=== PATIENT | female | born 1960 | race Caucasian/White ===

== ENCOUNTER 2020-08-03 15:23 | Outpatient (REF) | payer OTHER, SELFPAY ==
--- NOTE | ~2020-08-03 | MM_ITS ---
EXAMINATION: MM SCREENING DIGITAL BREAST TOMOSYNTHESIS, BILATERAL CLINICAL INFORMATION: Screening. Asymptomatic. The lifetime risk of breast cancer based on the Tyrer-Cuzick Model is 6%. COMPARISON: Mammography: 07/25/2019, 02/22/2018, 02/08/2017 TECHNIQUE: Digital breast tomosynthesis is performed in both the craniocaudal and mediolateral oblique views along with computer-aided detection (CAD). Synthesized 2D images are generated from the tomosynthesis. FINDINGS: The breasts are heterogeneously dense, which may obscure small masses (ACR BI-RADS breast composition Category c). There are no significant masses, abnormal calcifications, or other abnormalities. Parenchymal pattern is similar to prior exams. There is a dermal lesion again seen overlying left axillary tail on MLO view. MM/MM tomosynthesis screening BI IMPRESSION: No mammographic evidence of malignancy. ASSESSMENT: BI-RADS 1: Negative RECOMMENDATION: Routine annual mammography screening. This patient's information was entered into a reminder system with a target due date for their next mammogram.
== END 2020-08-03 15:24 | disposition home or self-care (01) ==
LOC: HO.MAMMO 15:23
PROVIDERS: PCP Internal Medicine; Visit Provider Obstetrics & Gynecology
DX: Z12.31 Encounter for screening mammogram for malignant neoplasm of breast (principal)
CPT/HCPCS: 77063; 77067

== ENCOUNTER 2021-06-15 08:45 | Outpatient (REF) | payer OTHER, SELFPAY ==
--- NOTE | ~2021-06-15 | MR_ITS ---
EXAMINATION: MR LUMBAR SPINE WITHOUT CONTRAST CLINICAL INFORMATION: 61-year-old with low back pain and history of L4-L5 spondylolisthesis. COMPARISON: 10/22/2019 MRI TECHNIQUE: MRI of the lumbar spine was obtained using routine sequences without contrast. FINDINGS: Coronal Alignment: Slight lower lumbar dextrocurvature noted stable in appearance. Sagittal Alignment: There is 8 mm of grade 1 spondylolisthesis at L4-L5, stable in appearance. Otherwise lordotic curvature is maintained. Lumbosacral Junction: Normal. Vertebral Bodies: Mild chronic loss of height of the posterior aspect of the L5 vertebral body is stable. Remaining vertebral body heights are well maintained, stable in appearance. Disc Spaces and Endplates: Moderate to severe disc space height loss and disc desiccation at L5-S1, stable in appearance. Mild disc space height loss and disc desiccation at L4-L5 is stable. Remaining intervertebral disc space heights are well maintained. There is minor anterior marginal endplate spurring at L2-L3 and L3-L4, unchanged. Spinal Canal: No abnormal developmental findings. Bone Marrow: No significant marrow-replacing process or bone marrow edema. Conus Medullaris: Terminates at L1. Morphology and signal is normal. Intradural Nerve Roots: Within normal limits. L5-S1: Unroofing of the posterior disc margin is again noted consistent with spondylolisthesis. Chronic bilateral pars defects are again noted consistent with isthmic spondylolisthesis, with no significant canal stenosis. There is moderate craniocaudal neural foraminal stenosis noted bilaterally, stable in appearance, without definite neural impingement. L4-L5: Mild central disc protrusion noted with a small radial annular fissure, slightly more prominent in appearance without thecal sac encroachment or neural impingement. Moderate bilateral facet arthrosis, stable in appearance, without significant canal or neural foraminal stenosis. L3-L4: No disc bulge or herniation. Mild left-sided facet arthropathy, stable in appearance. No significant canal or neural foraminal stenosis. L2-L3: Minimal annular bulging, stable in appearance. No significant facet arthrosis, canal or neural foraminal stenosis, stable in appearance. L1-L2: Normal disc contour. No facet arthrosis, canal or neural foraminal stenosis, unchanged. T12-L1: Normal. Paraspinal/Retroperitoneal: The paravertebral soft tissues are unremarkable. MR/MR lumbar spine wo con IMPRESSION: 1. Stable grade 1/2 spondylolisthesis at L5-S1 with chronic bilateral pars defects again noted and moderate bilateral craniocaudal neural foraminal stenosis without neural impingement, stable in appearance. 2. Slightly more prominent central disc protrusion at L4-L5 without thecal sac or neural impingement and stable facet arthropathy at this level. 3. Other minor degenerative findings are stable.
== END 2021-06-15 08:46 | disposition home or self-care (01) ==
LOC: HO.MRI 08:45
PROVIDERS: Visit Provider Physical Medicine & Rehabilitation
DX: M51.36 Other intervertebral disc degeneration, lumbar region (principal)
CPT/HCPCS: 72148

== ENCOUNTER 2021-07-10 08:26 | Outpatient (REF) | payer OTHER, SELFPAY ==
--- NOTE | ~2021-07-10 | XR_ITS ---
EXAMINATION: XR THORACIC SPINE CLINICAL INFORMATION: Thoracic back pain COMPARISON: Chest x-ray 03/12/2019 TECHNIQUE: 3 views of the thoracic spine were obtained. FINDINGS: There is mild levoscoliosis of the thoracic spine centered at T9/T10. Alignment is otherwise within normal limits. Thoracic vertebral body heights are maintained. Thoracic disc space heights are generally maintained diffusely. Tiny osteophytes are present scattered throughout the thoracic spine. Visualized lung parenchyma is well aerated. The cardiac silhouette is normal in size. XR/XR thoracic spine 3V IMPRESSION: Minimal diffuse degenerative changes of the thoracic spine.
[2021-07-10 09:06] LABS: MANUAL DIFF FLAG NO
[2021-07-10 10:16] LABS: Basophils Percent Auto 0.6 % (0-2); Eosinophils Absolute Auto 0.1 X10*3/uL (0.0-0.4); Eosinophils Percent Auto 2.2 % (0-4); Hematocrit 39.5 % (37.0-47.0); Hemoglobin 13.3 g/dl (12.0-16.0); Imm Gran Abs Auto 0.01 X10*3/uL (0.00-0.03); Imm Gran Pct Auto 0.2 % (0.0-0.4); Lymphocytes Absolute Auto 1.3 X10*3/uL (1.2-4.9); Lymphocytes Percent Auto 26.2 % (20-40); Mean Corpuscular HGB Conc 33.7 g/dl (31.0-35.0); Mean Corpuscular Hemoglobin 33.1 pg (27.0-33.0); Mean Corpuscular Volume 98.3 fL (80.0-98.0); Mean Platelet Volume 8.2 fL (9.4-12.3); Monocytes Absolute Auto 0.6 X10*3/uL (0.1-1.2); Monocytes Percent Auto 11.3 % (2-11); Neutrophils Percent Auto 59.5 % (45-73); Platelet Count 218 X10*3/uL (160-400); Red Blood Count 4.02 X10*6/uL (4.20-5.50); Red Cell Distribution Width 11.8 % (11.0-16.0)
[2021-07-10 10:48] LABS: Alanine Aminotransferase 22 U/L (0-31); Albumin Level 4.3 g/dL (3.5-5.0); Alkaline Phosphatase 66 U/L (39-117); Anion Gap 12 (12-20); Aspartate Amino Transferase 21 U/L (5-31); Bilirubin Total 0.6 mg/dL (0.0-1.0); Blood Urea Nitrogen 13 mg/dL (9-16); Calcium 9.4 mg/dL (8.4-10.2); Carbon Dioxide 27 mmol/L (22-29); Chloride 106 mmol/L (96-108); Cholesterol 214 mg/dL; Estimated Glomerular Filt Rate > 60; Glucose Fasting 97 mg/dL (60-99); HDL Cholesterol 59 mg/dL; LDL Cholesterol Calculated 139 mg/dl; Potassium 4.2 mmol/L (3.3-5.1); Sodium 141 mmol/L (135-145); Triglycerides 83 mg/dL
== END 2021-07-10 08:27 | disposition home or self-care (01) ==
LOC: HO.XRAY 08:26
PROVIDERS: PCP Internal Medicine Medical Oncology; Visit Provider Internal Medicine Medical Oncology
DX: M54.6 Pain in thoracic spine (principal); E78.00 Pure hypercholesterolemia, unspecified; E55.9 Vitamin D deficiency, unspecified
CPT/HCPCS: 36415; 72072; 80053; 80061; 85025

== ENCOUNTER 2021-08-17 14:50 | Outpatient (REF) | payer OTHER, SELFPAY ==
--- NOTE | ~2021-08-17 | MM_ITS ---
EXAMINATION: MM SCREENING DIGITAL BREAST TOMOSYNTHESIS, BILATERAL CLINICAL INFORMATION: Screening. Asymptomatic. The lifetime risk of breast cancer based on the Tyrer-Cuzick Model is 6%. COMPARISON: Mammography: 08/03/2020, 07/25/2019, 02/22/2018 TECHNIQUE: Digital breast tomosynthesis is performed in both the craniocaudal and mediolateral oblique views along with computer-aided detection (CAD). Synthesized 2D images are generated from the tomosynthesis. FINDINGS: The breasts are heterogeneously dense, which may obscure small masses (ACR BI-RADS breast composition Category c). There are no significant masses, abnormal calcifications, or other abnormalities. Parenchymal distribution is similar to prior studies and there is no developing density or architectural abnormality. No interval abnormal calcifications. The axilla and skin contours are unremarkable. Dermal lesion again seen overlying the left axilla on MLO view. MM/MM tomosynthesis screening BI IMPRESSION: No mammographic evidence of malignancy. ASSESSMENT: BI-RADS 2: Benign RECOMMENDATION: Routine annual mammography screening. This patient's information was entered into a reminder system with a target due date for their next mammogram.
== END 2021-08-17 14:51 | disposition home or self-care (01) ==
LOC: HO.MAMMO 14:50
PROVIDERS: PCP Internal Medicine Medical Oncology; Visit Provider Internal Medicine Medical Oncology
DX: Z12.31 Encounter for screening mammogram for malignant neoplasm of breast (principal)
CPT/HCPCS: 77063; 77067

== ENCOUNTER 2022-03-29 15:00 | Outpatient (RCR) | payer OTHER, SELFPAY ==
[2022-01-31 14:05] VITALS: BP 134/72; PULSE 80; O2SAT 98
== END 2022-03-30 14:49 | disposition home or self-care (01) ==
LOC: HO.PT 15:00
PROVIDERS: PCP Internal Medicine Medical Oncology; Visit Provider Physical Medicine & Rehabilitation
DX: M54.6 Pain in thoracic spine (principal)
CPT/HCPCS: 97110; 97140; 97162

== ENCOUNTER 2022-04-18 10:15 | Day surgery (SDC) | payer OTHER, SELFPAY ==
--- NOTE | 2022-04-15 08:04 | HO.ANESPROP2 ---
Documented by User: Sierra Stephens NP 04/15/22 08:05 HPI - Anesthesia Eval Consult details Narrative: 61yo F for Colonoscopy PMFSH Past Medical History Medical History (Updated 04/14/22 @ 08:18 by Brianne Guzman RN) Chronic back pain Surgical History Surgical History (Updated 04/14/22 @ 08:19 by Brianne Guzman, RN) Hx of section Hx of cholecystectomy Hx of colonoscopy Hx of esophagogastroduodenoscopy Hx of knee surgery Social History Social History Advance Directives: No Advance Directives Information Provided: Yes Meds Allergies Allergy/AdvReac Type Severity Reaction Status Date / Time codeine [Codeine] Allergy Intermediate FAINTING, Verified 04/18/22 10:58 faints From Darvocet-N 100 Allergy Mild Fainting Uncoded 04/18/22 10:58 From Percocet Allergy Mild Fainting Uncoded 04/18/22 10:58 Home Medications Medication Instructions Recorded Confirmed Last Taken Type celecoxib 200 mg capsule 1 cap PO DAILY 04/15/22 04/15/22 Unknown History cholecalciferol (vitamin D3) 50 1 tab PO DAILY 04/15/22 04/15/22 Unknown History mcg (2,000 unit) tablet lidocaine 5 % topical patch patch topical 04/15/22 Unknown History turmeric root extract 500 mg 1,000 mg PO DAILY 04/15/22 04/15/22 Unknown History capsule Exam Exam Date and Time: April 15, 2022 0804 Assessment and Plan Assessment Anesthesia Assessment: Chart Reviewed Documented by User: Pily Palma MD 04/18/22 11:29 PMFSH Active Problems Active Problems: Arthritis Past Medical History Medical History (Updated 04/14/22 @ 08:18 by Brianne Guzman RN) Chronic back pain Family History Family history of problems with anesthesia: No Surgical History Surgical History (Updated 04/14/22 @ 08:19 by Brianne Guzman RN) Hx of section Hx of cholecystectomy Hx of colonoscopy Hx of esophagogastroduodenoscopy Hx of knee surgery History of Problems with Anesthesia: No Social History Social History Advance Directives: No Advance Directives Information Provided: Yes Meds Allergies Allergy/AdvReac Type Severity Reaction Status Date / Time codeine [Codeine] Allergy Intermediate FAINTING, Verified 04/18/22 10:58 faints From Darvocet-N 100 Allergy Mild Fainting Uncoded 04/18/22 10:58 From Percocet Allergy Mild Fainting Uncoded 04/18/22 10:58 Home Medications Medication Instructions Recorded Confirmed Last Taken Type celecoxib 200 mg capsule 1 cap PO DAILY 04/15/22 04/15/22 Unknown History cholecalciferol (vitamin D3) 50 1 tab PO DAILY 04/15/22 04/15/22 Unknown History mcg (2,000 unit) tablet lidocaine 5 % topical patch patch topical 04/15/22 Unknown History turmeric root extract 500 mg 1,000 mg PO DAILY 04/15/22 04/15/22 Unknown History capsule Exam Height,Weight and Vital Signs: Height 5 ft 3 in Weight 57.153 kg Vital Signs Temp Pulse Resp BP Pulse Ox O2 Del Method 04/18/22 10:45 98.7 F 94 18 135/75 98 Room Air Airway Mallampati Class: II TM Dist: >3cm Neck ROM: Full Loose/Missing/Broken Teeth: No (Denies broken, loose, missing teeth) Heart: RRR Lungs: CTAB Assessment and Plan Assessment Anesthesia Assessment: Anesthesia Plan Discussed Final Anesthetic Review Family History of Problems with Anesthesia: No History of Problems with Anesthesia: No NPO: Yes ASA Class: II Final Preanesthetic Review: No Changes in Pt Med Stat, Meds/Allgs Chart Reviewed, Consent Obtained/Reviewed and Anes Risks/Benef Reviewed Patient Risk: Low Procedure Risk: Low Assessment/Block/Sedation in SS: Assess/Block/Sedation- Anesthetic Plan Anesthetic Plan: MAC: Disposition: Standard PACU
[2022-04-18 10:44] VITALS: BMI 22.3
[2022-04-18 10:45] VITALS: BP 135/75; PULSE 94; RESP 18; TEMP 37.1; O2SAT 98
[2022-04-18] MEDS: Lactated Ringers 1,000 ML 100 ML IVCONT (11:01)
[2022-04-18 12:24] VITALS: BP 91/62; PULSE 84; RESP 16; TEMP 36.3; O2SAT 100
--- NOTE | 2022-04-18 12:26 | P.BOP_ITS ---
Brief Operative Note Date of Service: 04/18/22 Pre-op diagnosis: Screening Post-op diagnosis: other (Diverticulosis) Surgeon: Luis Luciano Anesthesia: MAC Was an Commercial Marketing Specialist used for this Procedure?: No Estimated blood loss (mL): 0 Pathology: none sent Condition: stable Disposition: PACU
[2022-04-18 12:39] VITALS: BP 120/78; PULSE 81; RESP 16; TEMP 36.3; O2SAT 99
--- NOTE | 2022-04-18 22:52 | OP_ITS ---
SURGEON: Luis Luciano MD INDICATIONS: The patient presents for evaluation of personal history of tubular adenoma of the colon and colorectal cancer screening. Full consent was obtained from her for this, including risks of bleeding and perforation PREOPERATIVE DIAGNOSIS: Colorectal cancer screening and personal history of tubular adenoma of the colon. POSTOPERATIVE DIAGNOSIS: PROCEDURE PERFORMED: Colonoscopy to the cecum and terminal ileum. ESTIMATED BLOOD LOSS: COMPLICATIONS: ANESTHESIA: Medication used; monitored anesthesia care. ASSISTANTS: SPECIMENS: POSTOPERATIVE DIAGNOSES: Colorectal cancer screening and personal history of tubular adenoma of the colon, diverticulosis, and internal hemorrhoids. DESCRIPTION OF PROCEDURE: The patient was placed in the left lateral decubitus position. The digital rectal exam revealed no abnormalities. The Olympus video pediatric colonoscope was entered into the rectum and advanced to the cecum. Once in the cecum, I did identify normal-appearing cecal pouch with appendiceal orifice and a normal-appearing ileocecal valve. The terminal ileum was cannulated and appeared normal. The scope was withdrawn back in the colon. The entire cecum and ileocecal valve appeared normal. The scope was slowly withdrawn assessing all mucosal surfaces carefully. Preparation was excellent. I did not visualize any sign of polyps, colitis, nor angiodysplasia. There was a moderate amount of sigmoid diverticulosis. In the rectum, scope was retroflexed visualizing internal hemorrhoids, but no other pathology. The rectal mucosa appeared normal. The scope was straightened and withdrawn from the patient. She tolerated the procedure well and was returned to the recovery area in stable condition. IMPRESSION: 1. Diverticulosis. 2. Internal hemorrhoids. PLAN: I would recommend a repeat colonoscopy in 5 years for further screening. She will otherwise see me on a p.r.n. basis. MD JUDIE Contreras/GEO / [phone]
== END 2022-04-18 13:03 | disposition home or self-care (01) ==
PROVIDERS: PCP Internal Medicine Medical Oncology; Visit Provider Internal Medicine
PROC: 0DJD8ZZ Inspection of Lower Intestinal Tract, Via Natural or Artificial Opening Endoscopic (ICD-10-PCS; CPT 45378; principal; 2022-04-18 11:30)
DX: Z12.11 Encounter for screening for malignant neoplasm of colon (principal); Z86.010 Personal history of colon polyps; K57.30 Diverticulosis of large intestine without perforation or abscess without bleeding; K64.8 Other hemorrhoids; M54.9 Dorsalgia, unspecified; G89.29 Other chronic pain; Z79.899 Other long term (current) drug therapy; Z88.8 Allergy status to other drugs, medicaments and biological substances; Z90.49 Acquired absence of other specified parts of digestive tract
CPT/HCPCS: 45378

== ENCOUNTER 2022-08-12 07:43 | Outpatient (REF) | payer OTHER, SELFPAY ==
[2022-08-12 11:16] LABS: MANUAL DIFF FLAG NO
[2022-08-12 11:55] LABS: Basophils Percent Auto 0.5 % (0-2); Eosinophils Absolute Auto 0.2 X10*3/uL (0.0-0.4); Eosinophils Percent Auto 3.7 % (0-4); Hemoglobin 12.4 g/dl (12.0-16.0); Imm Gran Abs Auto 0.01 X10*3/uL (0.00-0.03); Imm Gran Pct Auto 0.2 % (0.0-0.4); Lymphocytes Absolute Auto 1.5 X10*3/uL (1.2-4.9); Lymphocytes Percent Auto 26.6 % (20-40); Mean Corpuscular HGB Conc 33.5 g/dl (31.0-35.0); Mean Corpuscular Hemoglobin 33.3 pg (27.0-33.0); Mean Corpuscular Volume 99.5 fL (80.0-98.0); Mean Platelet Volume 8.4 fL (9.4-12.3); Monocytes Absolute Auto 0.5 X10*3/uL (0.1-1.2); Monocytes Percent Auto 9.3 % (2-11); Neutrophils Absolute Auto 3.4 x10*3/uL (2.0-8.3); Neutrophils Percent Auto 59.7 % (45-73); Platelet Count 222 X10*3/uL (160-400); Red Blood Count 3.72 X10*6/uL (4.20-5.50); Red Cell Distribution Width 11.8 % (11.0-16.0); White Blood Count 5.6 X10*3/uL (4.8-10.8)
[2022-08-12 12:37] LABS: Alanine Aminotransferase 16 U/L (0-31); Albumin Level 4.2 g/dL (3.5-5.0); Alkaline Phosphatase 61 U/L (39-117); Anion Gap 12 (12-20); Aspartate Amino Transferase 19 U/L (5-31); Bilirubin Total 0.7 mg/dL (0.0-1.0); Blood Urea Nitrogen 17 mg/dL (9-16); Carbon Dioxide 26 mmol/L (22-29); Chloride 106 mmol/L (96-108); Cholesterol 211 mg/dL; Estimated Glomerular Filt Rate > 60; Glucose Fasting 86 mg/dL (60-99); HDL Cholesterol 61 mg/dL; LDL Cholesterol Calculated 136 mg/dl; Magnesium 2.1 mg/dL (1.6-2.6); Sodium 140 mmol/L (135-145); Total Protein 6.6 g/dL (6.5-8.0); Triglycerides 74 mg/dL; Vitamin D 25-OH Total 36.1 ng/mL (>30)
== END 2022-08-12 07:44 | disposition home or self-care (01) ==
LOC: HO.10HDL 07:43
PROVIDERS: Visit Provider Internal Medicine Medical Oncology
DX: Z00.00 Encounter for general adult medical examination without abnormal findings (principal); E78.00 Pure hypercholesterolemia, unspecified; E55.9 Vitamin D deficiency, unspecified; K21.9 Gastro-esophageal reflux disease without esophagitis
CPT/HCPCS: 36415; 80053; 80061; 82306; 83735; 85025

== ENCOUNTER 2022-09-27 07:13 | Outpatient (REF) | payer OTHER, SELFPAY ==
--- NOTE | ~2022-09-27 | MR_ITS ---
EXAMINATION: MR THORACIC SPINE WITHOUT CONTRAST CLINICAL INFORMATION: Evaluate for degenerative changes. Back pain. COMPARISON: X-ray dated 07/10/2021. TECHNIQUE: MRI of the thoracic spine was obtained using routine sequences without contrast. FINDINGS: The marrow signal is homogeneous. There are no compression fractures or subluxations. Mild multilevel disc space narrowing noted in the upper and midthoracic spine. No marrow or soft tissue edema is seen. A mild leftward curvature of the spine centered at the T8-T9 level may be positional. No cord signal abnormality is seen. There is no syrinx. The central canal is widely patent. The neural foramina are normal. No large disc protrusion is seen. Mild multilevel disc bulges noted. There is a small left paracentral disc protrusion at the T6-T7 level. Very small left subarticular zone disc protrusion noted at T7-T8. Mild multilevel facet arthropathy visible as well. The imaged portions of the lungs are relatively clear. The paraspinal soft tissues are normal. The craniovertebral junction and imaged portions of the brain appear grossly normal on the nondiagnostic localizer acquisition. MR/MR thoracic spine wo con IMPRESSION: Very mild thoracic spondylosis. No cord signal abnormality or large disc protrusion. No central canal stenosis.
== END 2022-09-27 07:14 | disposition home or self-care (01) ==
LOC: HO.MRI 07:13
PROVIDERS: PCP Internal Medicine Medical Oncology; Visit Provider Physical Medicine & Rehabilitation
DX: M47.894 Other spondylosis, thoracic region (principal)
CPT/HCPCS: 72146

== ENCOUNTER 2022-09-30 15:01 | Outpatient (REF) | payer OTHER, SELFPAY ==
--- NOTE | ~2022-09-30 | MM_ITS ---
EXAMINATION: MM SCREENING DIGITAL BREAST TOMOSYNTHESIS, BILATERAL CLINICAL INFORMATION: Screening. Asymptomatic. The lifetime risk of breast cancer based on the Tyrer-Cuzick Model is 6%. COMPARISON: Mammography: 08/17/2021, 08/03/2020, 07/25/2019 TECHNIQUE: Digital breast tomosynthesis is performed in both the craniocaudal and mediolateral oblique views along with computer-aided detection (CAD). Synthesized 2D images are generated from the tomosynthesis. FINDINGS: The breasts are heterogeneously dense, which may obscure small masses (ACR BI-RADS breast composition Category c). Parenchymal pattern is similar to prior studies. There is no developing density or architectural abnormality. The axilla are unremarkable. No significant changes. There are no significant masses, abnormal calcifications, or other abnormalities. Dermal lesion again noted overlying upper left breast on MLO view, marked with skin marker. MM/MM tomosynthesis screening BI IMPRESSION: No mammographic evidence of malignancy. ASSESSMENT: BI-RADS 2: Benign RECOMMENDATION: Routine annual mammography screening. This patient's information was entered into a reminder system with a target due date for their next mammogram.
== END 2022-09-30 15:02 | disposition home or self-care (01) ==
LOC: HO.MAMMO 15:01
PROVIDERS: PCP Internal Medicine Medical Oncology; Visit Provider Internal Medicine Medical Oncology
DX: Z12.31 Encounter for screening mammogram for malignant neoplasm of breast (principal)
CPT/HCPCS: 77063; 77067

== ENCOUNTER → 2022-10-18 10:54 | Outpatient (BNVA) | payer OTHER, SELFPAY | PROVIDERS: PCP Internal Medicine Medical Oncology; Visit Provider Advanced Practice Midwife ==

== ENCOUNTER 2023-01-20 08:06 | Outpatient (REF) | payer OTHER, SELFPAY ==
[2023-01-20 10:18] LABS: MANUAL DIFF FLAG NO
[2023-01-20 10:22] LABS: Basophils Percent Auto 0.7 % (0-2); Eosinophils Absolute Auto 0.1 X10*3/uL (0.0-0.4); Eosinophils Percent Auto 2.3 % (0-4); Hematocrit 40.3 % (37.0-47.0); Hemoglobin 13.6 g/dl (12.0-16.0); Imm Gran Abs Auto 0.01 X10*3/uL (0.00-0.03); Imm Gran Pct Auto 0.2 % (0.0-0.4); Lymphocytes Absolute Auto 1.9 X10*3/uL (1.2-4.9); Lymphocytes Percent Auto 34.3 % (20-40); Mean Corpuscular HGB Conc 33.7 g/dl (31.0-35.0); Mean Corpuscular Hemoglobin 32.9 pg (27.0-33.0); Mean Corpuscular Volume 97.3 fL (80.0-98.0); Mean Platelet Volume 8.4 fL (9.4-12.3); Monocytes Absolute Auto 0.6 X10*3/uL (0.1-1.2); Monocytes Percent Auto 9.8 % (2-11); Neutrophils Percent Auto 52.7 % (45-73); Platelet Count 219 X10*3/uL (160-400); Red Blood Count 4.14 X10*6/uL (4.20-5.50); Red Cell Distribution Width 11.5 % (11.0-16.0); White Blood Count 5.6 X10*3/uL (4.8-10.8)
[2023-01-20 10:58] LABS: Alanine Aminotransferase 13 U/L (0-31); Albumin Level 4.3 g/dL (3.5-5.0); Alkaline Phosphatase 64 U/L (39-117); Anion Gap 12 (12-20); Aspartate Amino Transferase 17 U/L (5-31); Bilirubin Total 0.4 mg/dL (0.0-1.0); Blood Urea Nitrogen 13 mg/dL (9-16); Calcium 9.7 mg/dL (8.4-10.2); Carbon Dioxide 28 mmol/L (22-29); Chloride 105 mmol/L (96-108); Cholesterol 208 mg/dL; Estimated Glomerular Filt Rate > 60; Glucose Fasting 95 mg/dL (60-99); HDL Cholesterol 57 mg/dL; LDL Cholesterol Calculated 130 mg/dl; Potassium 3.9 mmol/L (3.3-5.1); Sodium 141 mmol/L (135-145); Total Protein 7.4 g/dL (6.5-8.0); Triglycerides 106 mg/dL
[2023-01-20 11:14] LABS: Vitamin D 25-OH Total 57.8 ng/mL (>30)
== END 2023-01-20 08:07 | disposition home or self-care (01) ==
LOC: HO.10HDL 08:06
PROVIDERS: Visit Provider Internal Medicine Medical Oncology
DX: E55.9 Vitamin D deficiency, unspecified (principal); E78.00 Pure hypercholesterolemia, unspecified; K21.9 Gastro-esophageal reflux disease without esophagitis
CPT/HCPCS: 36415; 80053; 80061; 82306; 85025

== ENCOUNTER 2023-01-20 12:49 | Outpatient (REF) | payer OTHER, SELFPAY ==
--- NOTE | ~2023-01-20 | US_ITS ---
EXAMINATION: US RETROPERITONEAL COMPLETE (RENAL) CLINICAL INFORMATION: Urinary tract infection without hematuria. COMPARISON: CT abdomen and pelvis with contrast dated 03/15/2013. Ultrasound abdomen complete dated 03/01/2013 and 11/12/2009. TECHNIQUE: Real-time imaging of the kidneys and bladder. Limited visualization due to bowel gas. FINDINGS: RIGHT KIDNEY: 10.5 x 4.1 x 5.2 cm (SAG x AP x TRV). Mild fullness renal pelvis. No obstructing renal calculi. Renal cortical thickness is normal. LEFT KIDNEY: 10.4 x 5.1 x 4.5 cm (SAG x AP x TRV). Mild fullness renal pelvis. No obstructing renal calculi. Renal cortical thickness is normal. BLADDER: Well distended and unremarkable. Bilateral ureteral jets are demonstrated. Prevoid bladder volume is 614 mL. Postvoid bladder volume is 4.6 mL. INCIDENTAL FINDING: Incidental note on limited views of the left ovary of a 3.7 x 2.5 x 2.9 cm ovarian cyst. Dedicated pelvic ultrasound recommended for further evaluation. US/US retroperitoneal comp IMPRESSION: 1. Mild fullness of the bilateral renal pelves. No obstructing renal calculi. Renal cortical thickness is normal. 2. Incidental note on limited views of the left ovary of a 3.7 cm ovarian cyst. Dedicated pelvic ultrasound recommended for further evaluation.
== END 2023-01-20 12:50 | disposition home or self-care (01) ==
LOC: HO.US 12:49
PROVIDERS: PCP Internal Medicine Medical Oncology; Visit Provider Internal Medicine Medical Oncology
DX: N32.0 Bladder-neck obstruction (principal); N39.0 Urinary tract infection, site not specified
CPT/HCPCS: 76770

== ENCOUNTER 2023-02-21 14:21 | Outpatient (REF) | payer OTHER, SELFPAY ==
--- NOTE | ~2023-02-21 | US_ITS ---
EXAMINATION: US PELVIS CLINICAL INFORMATION: Left ovarian cyst. Transvaginal ultrasound images were not obtained as patient had recent back surgery. COMPARISON: Renal ultrasound of 01/20/2023. TECHNIQUE: Ultrasound of the pelvis is performed using both transabdominal and transvaginal transducers along with Doppler. Transvaginal ultrasound images were not obtained as patient had recent back surgery. FINDINGS: Uterus: The uterus is anteverted and measures 6.1 x 1.5 x 1.6 cm. No discrete fibroids identified. The double wall endometrial thickness is 0.14 mm. Adnexa: Right ovary not visualized. Left ovary measures 3.6 x 2.8 x 2.3 cm, volume 12 mL. Left ovary measures 3.6 x 2.8 x 2.3 cm, volume 12 mL. Left ovarian 3.1 x 2.4 x 1.7 cm cyst with possible small mural nodule. Limited visualization due to bowel gas. US/US pelvic complete IMPRESSION: 1. Left ovarian 3.1 cm cyst with possible small mural nodule difficult to fully characterize due to limited visualization on transabdominal ultrasound images. Ultrasound of 01/24/2023 demonstrated a 3.7 x 2.5 x 2.9 cm left ovarian cyst. Transvaginal ultrasound images were not obtained as patient had recent back surgery. Transvaginal ultrasound images recommended when patient is able to tolerate the exam. 2. Gynecologic consultation advised for this postmenopausal patient.
== END 2023-02-21 14:22 | disposition home or self-care (01) ==
LOC: HO.US 14:21
PROVIDERS: PCP Internal Medicine Medical Oncology; Visit Provider Internal Medicine Medical Oncology
DX: N83.202 Unspecified ovarian cyst, left side (principal)
CPT/HCPCS: 76856

== ENCOUNTER 2023-07-11 07:53 | Outpatient (REF) | payer OTHER, SELFPAY ==
[2023-07-11 08:09] LABS: MANUAL DIFF FLAG NO
[2023-07-11 08:40] LABS: Basophils Percent Auto 0.5 % (0-2); Eosinophils Absolute Auto 0.1 X10*3/uL (0.0-0.4); Eosinophils Percent Auto 2.4 % (0-4); Hematocrit 37.9 % (37.0-47.0); Imm Gran Abs Auto 0.01 X10*3/uL (0.00-0.03); Imm Gran Pct Auto 0.2 % (0.0-0.4); Lymphocytes Absolute Auto 1.5 X10*3/uL (1.2-4.9); Lymphocytes Percent Auto 25.6 % (20-40); Mean Corpuscular HGB Conc 34.3 g/dl (31.0-35.0); Mean Corpuscular Hemoglobin 32.8 pg (27.0-33.0); Mean Corpuscular Volume 95.7 fL (80.0-98.0); Mean Platelet Volume 8.4 fL (9.4-12.3); Monocytes Absolute Auto 0.5 X10*3/uL (0.1-1.2); Monocytes Percent Auto 7.7 % (2-11); Neutrophils Absolute Auto 3.7 x10*3/uL (2.0-8.3); Neutrophils Percent Auto 63.6 % (45-73); Platelet Count 219 X10*3/uL (160-400); Red Blood Count 3.96 X10*6/uL (4.20-5.50); Red Cell Distribution Width 11.6 % (11.0-16.0); White Blood Count 5.9 X10*3/uL (4.8-10.8)
[2023-07-11 09:12] LABS: Alanine Aminotransferase 20 U/L (0-31); Albumin Level 4.5 g/dL (3.5-5.0); Alkaline Phosphatase 80 U/L (39-117); Anion Gap 13 (12-20); Aspartate Amino Transferase 21 U/L (5-31); Bilirubin Total 0.4 mg/dL (0.0-1.0); Blood Urea Nitrogen 15 mg/dL (9-16); Calcium 9.8 mg/dL (8.4-10.2); Carbon Dioxide 27 mmol/L (22-29); Chloride 105 mmol/L (96-108); Cholesterol 203 mg/dL (<200); Estimated Glomerular Filt Rate > 60; Glucose Fasting 104 mg/dL (60-99); HDL Cholesterol 62 mg/dL (>40); LDL Cholesterol Calculated 125 mg/dL (<100); Potassium 4.4 mmol/L (3.3-5.1); Sodium 141 mmol/L (135-145); Total Protein 7.7 g/dL (6.5-8.0); Triglycerides 83 mg/dL (<150)
[2023-07-11 09:32] LABS: Vitamin D 25-OH Total 54.3 ng/mL (>30)
== END 2023-07-11 07:54 | disposition home or self-care (01) ==
LOC: HO.LAB 07:53
PROVIDERS: PCP Internal Medicine Medical Oncology; Visit Provider Internal Medicine Medical Oncology
DX: E55.9 Vitamin D deficiency, unspecified (principal); E78.00 Pure hypercholesterolemia, unspecified
CPT/HCPCS: 36415; 80053; 80061; 82306; 85025

== ENCOUNTER 2023-10-05 11:03 | Outpatient (REF) | payer OTHER, SELFPAY | END 2023-10-05 11:04 | disposition home or self-care (01) | LOC: HO.MAMMO 11:03 | PROVIDERS: PCP Internal Medicine Medical Oncology; Visit Provider Internal Medicine Medical Oncology | DX: Z12.31 Encounter for screening mammogram for malignant neoplasm of breast (principal) | CPT/HCPCS: 77063; 77067 ==

== ENCOUNTER → 2023-10-05 11:15 | Outpatient (BNV) | payer OTHER, SELFPAY | PROVIDERS: PCP Internal Medicine Medical Oncology; Visit Provider Radiology Diagnostic Radiology | DX: Z12.31 Encounter for screening mammogram for malignant neoplasm of breast (principal) | CPT/HCPCS: 77063; 77067 ==

== ENCOUNTER 2023-10-24 10:19 | Outpatient (AMB) | payer OTHER, SELFPAY ==
--- NOTE | 2023-10-24 10:23 | MHC.OFFVIS ---
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 She is doing well with concerns: seeing Dr. Chung at [facility] [place] for ovarian complex cyst, records unavailable today. Attempting to eat a healthy diet with calcium and vitamin D, limited exercise with back surgery. Currently not sexually active, due to medical concerns w/partner. Denies any vaginal dryness or irritation. STI testing offered; she declines. Last pap smear; 2019, negative. Last mammogram; not read. Colonoscopy is UTD. Denies any family history of breast, ovarian or colon cancer. PFS Medical History Chronic back pain Surgical History Hx of section Hx of cholecystectomy Hx of colonoscopy Hx of esophagogastroduodenoscopy Hx of knee surgery Social History Alcohol intake: current Alcohol intake frequency: a few times a week Patient Tobacco Use Status: Former Tobacco user Tobacco use type: Cigarette Cigarette Packs Per Day: 1.5 Cigarettes Per Day: 30.0 Years Smoked: 15 Sexual orientation: Straight/Heterosexual Gender identity: Female Review of Systems Const All systems reviewed & are unremarkable except as noted in HPI and below Reports as per HPI Eyes Reports no additional complaints ENT Reports no additional complaints Card Reports no additional complaints Resp Reports no additional complaints GI Reports as per HPI and Reports no additional complaints Reports as per HPI Musc Reports no additional complaints Skin/Breast Reports as per HPI Neuro Reports no additional complaints Psych Reports no additional complaints Endo Reports no additional complaints Wilbert/Lymph Reports no additional complaints Aller/Immun Reports no additional complaints Physical Exam Vital Signs: Last Vital Signs BP 122/72 05/21/24 10:30 BMI result Body Mass Index 22.0 Const General: cooperative, healthy appearing, no acute distress, well developed and alert Orientation/consciousness: patient oriented x3 HEENT Head: Yes normal to inspection Eyes General: appearance normal, both eyes and all related structures Neck Neck: Yes normal visual inspection Thyroid: Thyroid normal Chest Chest palpation & inspection: normal inspection of the chest and other (no puckering, dimpling, peau de orange, retraction, discharge, masses) Breast/axilla inspection: normal inspection of the breasts Breast/axilla palpation: normal palpation of the breasts Resp Effort & Inspection: normal respiratory effort GI Inspection: Yes normal to inspection Palpation (GI): Soft to palpation Rectal Exam - Female: deferred General: Yes bladder normal to palpation External Female Exam: normal external appearance and normal appearance of the urethra Speculum Exam - Vagina: normal appearance of the vagina, normal palpation, normal vaginal discharge and vagina atrophic Speculum Exam - Cervix: normal appearance of the cervix and normal palpation Bimanual exam- vagina & uterus: normal bimanual exam, normal palpation, uterine size normal, bladder normal to palpation, normal palpation and non-tender Bimanual Exam- Adnexa, other: no masses Skin General skin exam: no rashes or lesions noted Rashes: no rashes Neuro General: patient oriented x3 Cognition (Neuro): normal cognition Extrem General: Yes normal to inspection Psych Attitude: cooperative Thought process: Normal thought process present Assessment & Plan Assessment & Plan (1) Encounter for well woman exam with routine gynecological exam: Code(s): Z01.419 - Encounter for gynecological examination (general) (routine) without abnormal findings Category: Medical Plan: Discussed: Current recommendations for pap smears per ASCCP guidelines. Breast awareness, periodic self breast exams and yearly mammogram. Maintain a healthy lifestyle, well balanced diet including Calcium 1,200 mg and Vitamin D 600 IU daily, and routine exercise, as tolerated due to back recovery. Contact the office with any postmenopausal bleeding. Patient verbalizes understanding and agrees to the plan of care. She was given opportunity to ask questions and all questions were answered to the best of my ability. 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 This note is constructed using voice recognition software. While every effort has been made to ensure accuracy, exhibit electrician errors may have been included. Coding Level of Care Code Est Pt Prev Care 40-64y(07658) Diagnoses Encounter for well woman exam with routine gynecological exam Z01.419
[2023-10-24 10:30] VITALS: BP 122/72; BMI 22.0
== END 2023-10-24 10:54 | disposition home or self-care (01) ==
PROVIDERS: PCP Internal Medicine Medical Oncology; Visit Provider Advanced Practice Midwife
DX: Z01.419 Encounter for gynecological examination (general) (routine) without abnormal findings (principal)
CPT/HCPCS: 99396

== ENCOUNTER → 2023-10-24 10:19 | Outpatient (BNVA) | payer OTHER, SELFPAY | PROVIDERS: Visit Provider Advanced Practice Midwife ==

== ENCOUNTER 2023-12-22 08:23 | Outpatient (REF) | payer OTHER, SELFPAY ==
[2023-12-22 08:27] LABS: MANUAL DIFF FLAG NO
[2023-12-22 08:38] LABS: Basophils Percent Auto 0.4 % (0-2); Eosinophils Absolute Auto 0.1 X10*3/uL (0.0-0.4); Eosinophils Percent Auto 2.8 % (0-4); Hematocrit 38.2 % (37.0-47.0); Hemoglobin 12.9 g/dl (12.0-16.0); Imm Gran Abs Auto 0.02 X10*3/uL (0.00-0.03); Imm Gran Pct Auto 0.4 % (0.0-0.4); Lymphocytes Absolute Auto 1.7 X10*3/uL (1.2-4.9); Lymphocytes Percent Auto 33.5 % (20-40); Mean Corpuscular HGB Conc 33.8 g/dl (31.0-35.0); Mean Corpuscular Hemoglobin 33.1 pg (27.0-33.0); Mean Corpuscular Volume 97.9 fL (80.0-98.0); Mean Platelet Volume 8.1 fL (9.4-12.3); Monocytes Absolute Auto 0.4 X10*3/uL (0.1-1.2); Monocytes Percent Auto 8.1 % (2-11); Neutrophils Absolute Auto 2.7 x10*3/uL (2.0-8.3); Neutrophils Percent Auto 54.8 % (45-73); Platelet Count 272 X10*3/uL (160-400); Red Cell Distribution Width 11.9 % (11.0-16.0); White Blood Count 4.9 X10*3/uL (4.8-10.8)
[2023-12-22 12:10] LABS: Anion Gap 14 (12-20); Blood Urea Nitrogen 18 mg/dL (9-16); Calcium 9.5 mg/dL (8.4-10.2); Carbon Dioxide 25 mmol/L (22-29); Chloride 105 mmol/L (96-108); Estimated Glomerular Filt Rate > 60; Glucose Fasting 102 mg/dL (60-99); Potassium 3.9 mmol/L (3.3-5.1); Sodium 140 mmol/L (135-145)
[2023-12-22 12:11] LABS: Alanine Aminotransferase 14 U/L (0-31); Albumin Level 4.4 g/dL (3.5-5.0); Alkaline Phosphatase 71 U/L (39-117); Aspartate Amino Transferase 16 U/L (5-31); Bilirubin Total 0.3 mg/dL (0.0-1.0); Cholesterol 196 mg/dL (<200); HDL Cholesterol 61 mg/dL (>40); LDL Cholesterol Calculated 122 mg/dL (<100); Total Protein 7.2 g/dL (6.5-8.0); Triglycerides 68 mg/dL (<150)
== END 2023-12-22 08:24 | disposition home or self-care (01) ==
LOC: HO.LNP 08:23
PROVIDERS: Visit Provider Internal Medicine Medical Oncology
DX: Z00.00 Encounter for general adult medical examination without abnormal findings (principal)
CPT/HCPCS: 80053; 80061; 85025

== ENCOUNTER 2023-12-25 14:00 | Outpatient (RCR) | payer OTHER, SELFPAY | END 2024-01-23 14:02 | disposition home or self-care (01) | LOC: HO.PTCHIC 14:00 | PROVIDERS: PCP Internal Medicine Medical Oncology; Visit Provider Physician Assistant | DX: M54.50 Low back pain, unspecified (principal) | CPT/HCPCS: 97110; 97140; 97161; 97530 ==

== ENCOUNTER 2024-07-23 07:55 | Outpatient (REF) | payer OTHER, SELFPAY ==
--- OUTSIDE RECORDS SUMMARY | 2024-07-23 07:58 | XMS_ITS | Clinical Summary ---
Author Organization [facility] it Address [id number] [place] [phone] Care Team Providers Care Fried Cake Maker Name Role Phone Luis Stoner MD Primary Care Provider [phone] Medications lidocaine (LIDODERM) 5 % patchIndication s:Spondylolisth esis of lumbar region Apply 1 patch topically 1 (one) time each day. Remove & discard patch within 12 hours or as directed by . 60 each 5 08/19/19 25 Active Surgical History Surgery Date Site/Laterality Comments TONSILLECTOMY ADENOIDECTOMY, BILATERAL MYRINGOTOMY AND TUBES PROCEDURE: [place] TONSILLECTOMY & ADENOIDECTOMY <AGE 12 CHOLECYSTECTOMY PROCEDURE: HISTORICAL CHOLECYSTECTOMY WISDOM TOOTH EXTRACTION PROCEDURE: HISTORICAL WISDOM TEETH EXTRACTION SECTION PROCEDURE: HISTORICAL DELIVERY; COMMENT: x2 KNEE ARTHROSCOPY Right PROCEDURE: [place] ARTHROSCOPY AID [place] SPINE&/FX KNEE W/O FIXJ COLONOSCOPY 11/07/2016 PROCEDURE: HISTORICAL COLONOSCOPY; COMMENT: sigmoid diverticulosis, internal hemorrhoids; repeat in 5 yrs; no report COLONOSCOPY 02/21/2011 PROCEDURE: HISTORICAL COLONOSCOPY; COMMENT: tubular adenoma-removed; no report (only path report) UPPER GASTROINTESTINAL ENDOSCOPY 02/22/2010 PROCEDURE: [place] UPPER GI ENDOSCOPY PERFORMED; COMMENT: mild gastritis, duodenitis, neg H.Pylori; no report BACK SURGERY 02/02/2023 PROCEDURE: HISTORICAL BACK SURGERY; COMMENT: L5-S1 fusion, Dr. Manjarrez Medical History Medical History Date Comments History of gastroesophageal reflux (GERD) 07/02/2018 DX:History of gastroesophage al reflux (GERD); COMMENT: gastritis History of colon polyps 07/02/2018 DX:Histo ry of colon polyps; COMMENT: 11/2016 diverticulosis, internal hemorroids; 2010 tubular adenoma-removed Spinal stenosis, lumbar 07/02/2018 DX:Spina l stenosis, lumbar; COMMENT: 11/2017 MRI bilateral Vitamin D insufficiency 01/16/2019 DX:Vitam in D insufficiency Borderline hypercholesterolemia 01/16/2019 DX:Borderline hypercholesterolemia Family History Medical History Relation Name Comments Hypertension Brother 1 Hypertension Brother 2 Hypertension Brother 3 Hypertension Brother 4 Lung cancer Father COPD Mother diabetes, hyper tension, hypercholestermia Breast cancer Neg Hx Colon cancer Neg Hx Ovarian cancer Neg Hx Pancreatic cancer Neg Hx Prostate cancer Neg Hx Uterine cancer Neg Hx Relation Name Status Comments Brother 1 Alive Brother 2 Alive Brother 3 Alive Brother 4 Alive Brother 5 Father Mother Alive Social History Tobacco Use Types Packs/Day Years Used Date Smoking Tobacco: Former Cigarettes Smokeless Tobacco: Never Alcohol Use Standard Drinks/Week Comments Yes 0 (1 standard drink = 0.6 oz pur e alcohol) Comments Unknown Sex and Gender Information Value Date Recorded Sex Assigned at Not on file Legal Sex Female 3:26 PM EST Gender Identity Not on file Sexual Orientation Not on file Obstetrics History Last Filed Vital Signs Vital Sign Reading Time Taken Comments Blood Pressure - - Pulse - - Temperature - - Respiratory Rate - - Oxygen Saturation - - Inhaled Oxygen Concentration - - Weight 57.3 kg (126 lb 4.8 oz) 02/14/2023 11:18 AM EDT Height 157.5 cm (5' 2 ) 11/17/2023 10:07 AM EDT Body Mass Index 23.1 02/14/2023 11:18 AM EDT Plan of Treatment Health Maintenance Due Date Last Done Comments Breast Cancer Screening 1960 Cervical Cancer Screening: HPV 1981 Pneumococcal Vaccine: 50+ Years (1 of 1 - PCV) 2010 Zoster Vaccines (1 of 2) 2010 Cholesterol Screening (Lipid Panel) 05/04/2022 Colorectal Cancer Screening: Colonoscopy 05/04/2022 Depression Screening 05/04/2022 HIV Screening 05/04/2022 Hepatitis C Screening 05/04/2022 Social Influencers of Health Screening 05/04/2022 COVID-19 Vaccine ( season) 2024 09/16/2020, 08/26/2020 Influenza Vaccine (#1) 2024 9, 02/11/2018, 01/22/2017, Additional history exists DTaP,Tdap,and Td Vaccines (4 - Td or Tdap) 03/26/2028 03/26/2018, 03/05/2015, 02/03/2014 RSV Immunization Patients 60+ Years Old (1 - 1-dose 75+ series) 2035 HIB Vaccines Aged Out No longer eligi ble based on patient's age to complete this topic HPV Vaccines Aged Out No longer eligi ble based on patient's age to complete this topic Hepatitis A Vaccines Aged Out No long er eligible based on patient's age to complete this topic Hepatitis B Vaccines Aged Out No long er eligible based on patient's age to complete this topic IPV Vaccines Aged Out No longer eligi ble based on patient's age to complete this topic MMR Vaccines Aged Out No longer eligi ble based on patient's age to complete this topic Meningococcal ACWY Vaccine Aged Out N o longer eligible based on patient's age to complete this topic Meningococcal B Vacine Aged Out No lo nger eligible based on patient's age to complete this topic Pneumococcal Vaccine: Pediatrics (0 to 5 Years) and At-Risk Patients (6 to 64 Years) Aged Out No longer eligible based on patient's age to complete this topic RSV Immunization Patients Under 20 months Aged Out No longer eligible based on patient's age to complete this topic Varicella Vaccines Aged Out No longer eligible based on patient's age to complete this topic Care Teams Fried Cake Maker Relationship Specialty Start Date End Date Luis Stoner MD [address] [address] PCP - General 10/18/22
--- OUTSIDE RECORDS SUMMARY | 2024-07-23 07:58 | XMS_ITS ---
Author Organization Luis Stoner III, MD Address [address] [place] [address] [place] [address] Care Team Providers Care Golf Club Manager Name Role Phone Luis Stoner Primary Care [...] Date Provider Diagnosis Luis Stoner III, MD [address] [place] [address] [place] [address] 02/26/2024 Luis Stoner Vitamin D deficiency E55.9 [...] Scheduled, Kaitlin son: OV Provider Name:Luis Stoner, 07/29/2024 02:00:00 PM, [address] [place] [address] [place], [place], [phone], Progress Notes * Brianne BRIDGES LDOB: (63 yo F)Acc No.[id number]:02/26/2024 Progress Notes Patient:?Tawnya Bridges Provider:?Luis Stoner MD :1960???Age:63 Y???Sex:Female D ate:02/26/2024 Address:[address] [place] [address], [place], [id number] Subjective: * Chief Complaints: * ???Lumbar radiculopathyRecen t lumbar surgeryGERDHyperlipidemiaDysfunction of the sphincter of Oddi * HPI: ???COVID-19 Screening:? She returns for medical management. She recently had surgery on her lumbar spine to relieve severe lumbar radiculopathy. The pain is much improved and often not present. She has returned to all the activities of daily life. She continues to take omeprazole for dyspepsia. Her cost manager says he is treating dysfunction of the sphincter of Oddi. While taking omeprazole she feels much better. Her neurosurgeon has told her the bones have healed and her spinous now fused. She has no new complaints. Her blood work was reviewed with her in detail today. ?Questions?Have you experienced fever, chills, cough, sore throat, shortness of breath, difficulty breathing, muscle aches, loss of taste or smell??No ?Have you been exposed to the virus within the last 10 days??No ?Have you travelled internationally in the last 10 days??No ?Have you been exposed to COVID-19 in the past??Yes * ROS:?General/Constitutional:?pain?Occasional low back pain, occasional upper abdominal discomfort after eating.?Chills?denies.?Fatigue?admits.?Fever?denies.?ENT:?Decreased hearing?denies.?Respiratory:?Cough?denies.?Cardiovascular:?Chest pain with exertion?denies.?Dyspnea on exertion?denies.?Shortness of breath?denies.?Gastrointestinal:?Constipation?occasional.?Decreased appetite?denies.?Diarrhea?denies.?Heartburn?denies.?Nausea?denies.?Rectal bleeding?denies.?Vomiting?denies.?Hematology:?bruising?denies.?petechiae?denies.?Swollen glands?none have been noted.?Genitourinary:?Frequent urination?at night.?Musculoskeletal:?Muscle aches?denies.?Painful joints?denies.?Sciatica?denies.?Weakness?denies.?Skin:?Itching?denies.?Rash?denies.?Skin lesion(s)?denies.?Neurologic:?Difficulty speaking?denies.?Dizziness?denies.?Headache?denies.?Low back pain?that is chronic.?Psychiatric:?Depressed mood?denies.? * Medical History:? * Surgical History:?Loiza veronica th extractions x 2 Cholecystectomy Right knee arthroscopy Upper endoscopy and colonoscopy, 1 tubular adenoma,[facility], Dr. Luciano analgesic injections lumbar spine prior [facility] Lumbar spine fusion 02/02/2023 * Hospitalization/Major Diagno stic Procedure:?Denies Past Hospitalization * Family History:?Father: dece ased 59 yrs, Lung cancer, diagnosed with HTN, Cancer.?Mother: alive 85 yrs, copd,chf,ckd,pad,dm2,, diagnosed with HTN, DM, CVD, Hyperlipidemia.?Children: alive.?Son(s): alive.?Daughter(s): alive.?Siblings: , diagnosed with HTN.?5 brother(s) . 1 son(s) , 1 daughter(s) - healthy. .? Her mother is alive with COPD diabetes [...] substance use disorder or addiction. * Social History:?Tobacco Use:?Tobacco Use/Smoking?Patient is a?former smoker ?How long has it been since you last smoked??> 10 years ?Additional Findings: Tobacco Non-User?Ex-cigarette smoker ???She stopped smoking in 1990. She has 2 children , alive and well and September,, alive and well. She has 1 healthy grandson and well and healthy granddaughter. Her scarf gluer is Dr. Torres at [facility]. Her last mammogram in August 2020 was normal. She is to [facility]. * Medications:?TakingVitamin D 3 50 MCG (1999 UT) Tablet TAKE 1 [...] with the patientTaking Vitamin D3 50 MCG (2000 UT) Tablet TAKE 1 TABLET BY MOUTH [...] reviewed and reconciled with the patient * Allergies:?No Known Drug All ergyno[Allergies Verified] Objective: * Vitals:?Ht: 62, Wt: 128, BMI :23.41, BP: 135/79, HR: 72, Temp: 97.0, Wt-k.06. * ???Past Orders: Lab:Lipid Panel * Order Date 12/22/2023 07/11/2023 01/20/2023 Triglycerides 68 (Ref Range: <150 mg/dL) 83 (Ref Range: <150 mg/dL) 106 (Ref Range: mg/dL) Cholesterol 196 (Ref Range: <200 mg/dL) 203?H (Ref Range: <200 mg/dL) 208 (Ref Range: mg/dL) LDL Cholesterol Calculated 122?H (Ref Range: <100 mg/dL) 125?H (Ref Range: <100 mg/dL) 130 (Ref Range: mg/dl) HDL Cholesterol 61 (Ref Range: >40 mg/dL) 62 (Ref Range: >40 mg/dL) 57 (Ref Range: mg/dL) * Lab:[facility]enn[facility]. [facility] * Order Date 12/22/2023 07/11/2023 [...] 12 (Ref Range: 12-20) Blood Urea Nitrogen 18?H (Ref Range: 9-16 mg/dL) 15 (Ref Range: 9-16 mg/dL) 13 (Ref Range: 9-16 mg/dL) Creatinine 0.82 (Ref Range: 0.5-1.4 mg/dL) 0.82 (Ref Range: 0.5-1.4 mg/dL) 0.79 (Ref Range: 0.5-1.4 mg/dL) Estimated Glomerular Filt Rate > 60 > 60 > 60 Glucose Fasting 102?H (Ref Range: 60-99 mg/dL) 104?H (Ref Range: 60-99 mg/dL) 95 (Ref Range: 60-99 mg/dL) Calcium 9.5 (Ref Range: 8.4-10.2 mg/dL) 9.8 (Ref Range: 8.4-10.2 mg/dL) 9.7 (Ref Range: 8.4-10.2 mg/dL) * Lab:Complete Blood Count Aut o Diff * Order Date 12/22/2023 07/11/2023 01/20/2023 White Blood Count 4.9 (Ref Range: 4.8-10.8 X10*3/uL) 5.9 (Ref Range: 4.8-10.8 X10*3/uL) 5.6 (Ref Range: 4.8-10.8 X10*3/uL) Red Blood Count 3.90?L (Ref Range: 4.20-5.50 X10*6/uL) 3.96?L (Ref Range: 4.20-5.50 X10*6/uL) 4.14?L (Ref Range: 4.20-5.50 X10*6/uL) Hemoglobin 12.9 (Ref Range: 12.0-16.0 g/dl) 13.0 (Ref Range: 12.0-16.0 g/dl) 13.6 (Ref Range: 12.0-16.0 g/dl) Hematocrit 38.2 (Ref Range: 37.0-47.0 %) 37.9 (Ref Range: 37.0-47.0 %) 40.3 (Ref Range: 37.0-47.0 %) Mean Corpuscular Volume 97.9 (Ref Range: 80.0-98.0 fL) 95.7 (Ref Range: 80.0-98.0 fL) 97.3 (Ref Range: 80.0-98.0 fL) Mean Corpuscular Hemoglobin 33.1?H (Ref Range: 27.0-33.0 pg) 32.8 (Ref Range: [...] (Ref Range: 160-400 X10*3/uL) Mean Platelet Volume 8.1?L (Ref Range: 9.4-12.3 fL) 8.4?L (Ref Range: 9.4-12.3 fL) 8.4?L (Ref Range: 9.4-12.3 fL) Neutrophils Percent Auto [...] 0.000 (Ref Range: 0.0-0.012 X10*3/uL) * Examination: ???General Examination: ?GENERAL APPEARANCE:?pleasant, well nourished, well developed, in no acute distress, calm and relaxed , woman.?HEAD:?atraumatic, normocephalic.?EYES:?eomi, perrla, anicteric, conjugate.?EARS:?normal.?NOSE:?septum intact.?ORAL CAVITY:?normal, unremarkable.?NECK/THYROID:?no jugular venous distention, no carotid bruit, thyroid normal.?LYMPH NODES:?no enlarged lymph nodes,spleen normal.?SKIN:?no suspicious lesions, anicteric.?HEART:?no clicks, gallops, murmurs, or rubs, regular rhythm, S1, S2 normal, no s3, or vascular bruits.?LUNGS:?clear to auscultation .?BREASTS:?not examined.?ABDOMEN:?bowel sounds normal, no ascites, no organomegaly, no mass.?RECTAL EXAM:?not examined.?MUSCULOSKELETAL:?extremities unremarkable, no clubbing, cyanosis or edema, Healed extensive surgical incision over lumbar spine.?PERIPHERAL PULSES:?normal.?NEUROLOGIC:?alert and oriented, cranial nerves 2-12 grossly intact, deep tendon reflexes 2+ symmetrical, motor strength normal upper and lower extremities, sensory exam intact.?PSYCH:?alert, oriented.? Assessment: * Assessment: 1.?Vitamin D deficiency - E5 5.9, Vitamin D supplements.?2.?Hypercholesteremia - E78.00, Her total cholesterol is within her target range. Her weight is stable and in the normal range. We have discussed her diet and nutrition today.?3.?GERD (gastroesophageal reflux disease) - K21.9, She attributes her symptoms of reflux to dysfunction of the sphincter of Oddi. The discomfort is well controlled on current medication.?4.?Lumbar radiculopathy - M54.16, Her back pain is currently stable and improving slowly. The fusion is healing. The pain is much improved? Plan: * Treatment: 2.?Hypercholesteremia?LAB: PROFILE, FASTING (COMPREHENSIVE METABOLIC) ?LAB: MAGNESIUM ?LAB: CBC WITH AUTO DIFF ?LAB: Lipid Panel ?LAB: Vitamin D 25-OH Total 3.?GERD (gastroesophageal re flux disease)?LAB: PROFILE, FASTING (COMPREHENSIVE METABOLIC) ?LAB: MAGNESIUM ?LAB: CBC WITH AUTO DIFF ?LAB: Lipid Panel ?LAB: Vitamin D 25-OH Total 4.?Others? Continue Vitamin D3 Tablet, 50 MCG (2000 UT), TAKE 1 TABLET BY MOUTH EVERY DAY;?Continue Meclizine HCl Tablet Chewable, 25 MG, 1 tablet, Orally, Three times a day prn vertigo;?Continue Omeprazole Capsule Delayed Release, 20 MG, 1 capsule 30 minutes before morning meal, Orally, Once a day;?Continue Cyclobenzaprine HCl Tablet, 5 MG, 1 tablet, Orally, twice a day prn muscle spasm.?? * Procedure Codes:? * Preventive Medicine:? ??Counseling:?Smoking/Tobacco Use?Patient counseled on the dangers of tobacco use and urged to quit.?02/26/2024 * Follow Up:?As Scheduled (Kaitlin son: OV) * Images: * Sign off status: Completed true * Provider:?Luis Stoner MD Date:?02/04 Generated for Nayla hanna/Leonel/Isaacitting on:?07/23/2024 07:58 AM EST History and Physical Notes * HPI (History of Present Illness) Category Sub-Category Detail Notes COVID-19 Screening Questions Have you had any new onset fever, chills, cough, congestion, sore throat, shortness of breath, muscle aches?: No Have you been exposed to the virus withi n the last 10 days?: No Have you travelled internationally in e last 10 days?: No Have you been [...]
--- OUTSIDE RECORDS SUMMARY | 2024-07-23 07:58 | XMS_ITS ---
Author Organization Luis Stoner III, MD Address [address] [place] [address] [address] [facility] [address] Care Team Providers Care Cleaning Attendant Name Role Phone Luis Stoner Primary Care Provider REASON FOR VISIT Rx Request Medications Medication SIG (Take, Route, Fr equency, Duration) Notes Start Date End Date Status Meclizine HCl 25 MG 1 tablet Orally Thre e times a day prn vertigo for 7 days 04/20/2023 Activ e Social History Sex Assigned At : Social History Observation Description Sex Assigned At Female Encounters Encounter Location Date Provider Diagnosis Luis Stoner III, MD [address] [place] [address] [address] [facility] [place] [address] 04/12/2024 Luis Stoner Plan Of Treatment Medication Medication Name Sig Start Date Stop Date Notes Meclizine HCl 25 MG 1 tablet Orally Thre e times a day prn vertigo for 7 days 04/20/2023 Next Appt Details Provider Name:Luis Stoner, 07/29/2024 02:00:00 PM, [address] [place] [address] [place], [address], Progress Notes * Brianne BRIDGES LDOB: (63 yo F)Acc No.[id number]:04/12/2024 Patient:?Tawnya BRIDGES :1960???Age:63 Y???Sex:Female Address:[address] [place], [place] [address], [address] * Refills? Refill Meclizine HCl Tablet Chewable, 25 MG, Orally, 21, 1 tablet, Three times a day prn vertigo, 7 days, Refills=6 * true * Date:? Generated for Nayla hanna/Leonel/Isaacitting on:?07/23/2024 07:57 AM EST
--- OUTSIDE RECORDS SUMMARY | 2024-07-23 07:59 | XMS_ITS | Data Portability ---
Author Organization [facility] Address [address] [place] [address] Assessment No assessment recorded. Plan of Treatment Reminders Order Date Submit Date Provider Last Modified By Organization Details Last Modified Time Details Appointments None recorded. Lab urinalysis, dipstick 2022 023 [email or web address], [address] [place] [address], [id number], 3 18:33:05 culture, urine 2022 023 [facility], [address] [place] [address], [id number], 3 06:07:48 Referral None recorded. Procedures None recorded. Surgeries None recorded. Imaging None recorded. Medication Orders cephalexin 500 mg capsule 2022 023 [id number], [address] [place] [address], [id number], 3 18:33:11 Patient TargetsNo targets recorded. Patient Instructions Encounter Date Encounter Id Patient Instructions Last Modified By Organization Details Last Modified Time 01/15/2023 [id number] - As we discusse d, you denied having any symptoms of your high blood pressure right now. Please follow up with your primary care provider as soon as possible to get further evaluation and - If you use tobacco or frequent alcohol use you should stop - weight loss can reduce blood pressure - 2 gram low-salt diet - continue medications as discussed your blood pressure is elevated you should follow-up with your Primary -doctor. - For any chest pain, shortness of breath, weakness or numbness to extremities, difficulty speaking, blurred vision, or headache unrelieved by medications you should go to Emergency room as this can be a medical emergency. Not available 01/15/2023 18:33:02 We recommend you get a repeat urinalysis in 2 weeks to ensure that any abnormalities have resolved. If urine abnormalities persist, you will likely need further testing or treatment. We will contact you within 3 to 5 days with the results of your lab test. If you have not heard back from us within that time frame, please feel free to contact our office regarding your results. Go to the Emergency Department immediately if your symptoms worsen or if you develop new symptoms that concern you. Drink plenty of fluids You should follow-up with your PCP in 4-5 days, or at any time if your condition does not improve or worsens. Any acute change should prompt a visit to the nearest Emergency Department. Not available 01/15/2023 18:32:41 Reason for Referral None Reported. Results Created Date Observation Date Name Description Value Unit Range Abnormal Flag Note LastModifiedBy Organization Detail LastModifiedTime 01/16/2001/18/2023 URINE CULTU RE, YAHIRI NE urine culture, routine FINAL REPORT Not Available [facility] ([facility]) [address] [facility], [place], [address], 01/18/2023 06:07:47 01/16/2001/18/2023 URINE CULTU RE, ROUTI NE result 1 NO GROWTH Not Available [facility] ([facility]) [address] [place], [address], 01/18/2023 06:07:47 01/16/2001/15/2023 urina lysis , dipst ick Unknown Analyte Light Yellow Not Available [facility] [address] [place], [address], 01/15/2023 18:06:23 01/16/20 23 01/15/2023 urina lysis , dipst ick Unknown Analyte Clear Not Available [facility] [address] [place], [address], 01/15/2023 18:06:23 01/16/20 23 01/15/2023 urina lysis , dipst ick Unknown Analyte Negati ve Not Available [facility] [address] [facility] [place], [address], 01/15/2023 18:06:23 01/16/20 23 01/15/2023 urina lysis , dipst ick Unknown Analyte Negati ve Not Available [facility] [address] [place], [address], 01/15/2023 18:06:23 01/16/20 23 01/15/2023 urina lysis , dipst ick Unknown Analyte Negati ve Not Available [facility] [address] [place], [address], 01/15/2023 18:06:23 01/16/20 23 01/15/2023 urina lysis , dipst ick Unknown Analyte 1.010 Not Available madhu [address] [place], [address], 01/15/2023 18:06:23 01/16/20 23 01/15/2023 urina lysis , dipst ick Unknown Analyte Trace- intact Not Available [facility] [address] [place], [address], 01/15/2023 18:06:23 01/16/20 23 01/15/2023 urina lysis , dipst ick Unknown Analyte 6.0 Not Available madhu [address] [place], [address], 01/15/2023 18:06:23 01/16/20 23 01/15/2023 urina lysis , dipst ick Unknown Analyte Negati ve Not Available [facility] [address] [place], [address], 01/15/2023 18:06:23 01/16/20 23 01/15/2023 urina lysis , dipst ick Unknown Analyte 0.2 E.U./d L Not Available _[facility] [address] [place], [address], 01/15/2023 18:06:23 01/16/20 23 01/15/2023 urina lysis , dipst ick Unknown Analyte Negati ve Not Available _[facility] [address] [place], [address], 01/15/2023 18:06:23 01/16/20 23 01/15/2023 urina lysis , dipst ick Unknown Analyte Negati ve Not Available _[facility] [address] [place], [address], 01/15/2023 18:06:23 Result Notes None recorded. Problems Name Problem SNOMED Code Status Onset Date Resolution Date Notes Provider Name and Address Organization Details Recorded Time Chronic back pain 601761040 Active 023 ALON gutierrez, [place] - [facility] 3 18:03:03 Disorder of stomach 87635370 Active 023 ALON gutierrez, PA - [facility] 3 18:03:24 Problem Notes None recorded. Procedures Surgical History Date Name Laterality Status Provider Name and Address Organization Details Recorded Time procedure on knee completed ALON CAMPOS A PA - [facility] 01/15/2023 18:05:54 cholecystectomy completed ALON MENDIETA PA - [facility] 01/15/2023 18:06:08 Imaging Results None recorded. Procedure Notes None recorded. Medical Equipment None Reported. Allergies No known drug allergies Medications Name Sig Start Date Stop Date Status Note LastModified by Organization Details LastModified Time cephalexin 500 mg capsule Take 1 capsule every 8 hours by oral route with meals for 7 days. 023 active Not Available Not Available Not Avai lable omeprazole 20 mg capsule,valentin yed release Take 1 capsule every day by oral route. active Not Available Not Available No t Available Vitamin D2 active Not Available Not Av ailable Not Available lidocaine 1.8 % topical patch APPLY 1 PATCH BY TOPICAL ROUTE ONCE DAILY (MAY WEAR UP TO 12HOURS.) active Not Available Not Available No t Available Vitals Date Recorded Body height Body mass index (BMI) Body weight Respiratory rate Body temperature Oxygen saturation Oxygen saturation in Arterial blood by Pulse oximetry Heart rate Systolic blood pressure Diastolic blood pressure Provider Name and Address Organization Details Last Updated DateTime 157.48 cm 23.8 kg/m2 42781.0 1 g 16 /min 97 [degF] 98 % 98 % 76 /min 158 mm[Hg] 92 mm[Hg] ALON MENDIETA [facility] 18:08:33 Social History Question Answer Notes LastModified by Organizat ion Details LastModified Time Tobacco Smoking Status Former Smoker ALON gutierrez [facility] 01/15/2023 18:05:43 What Is Your Level Of Alcohol Consumption? Occasional [email or web address] Information not available 01/15/2023 Do You Use Any Illicit Or Recreational Drugs? No [email or web address] Information not available 01/15/2023 Have You Recently Traveled Abroad? No [email or web address] Information not available 01/15/2023 Do You Or Have You Ever Used Any Other Forms Of Tobacco Or Nicotine? No [email or web address] Information not available 01/15/2023 Sex: Unknown Functional Status None recorded. Mental Status None recorded. Family History Relationship Description Onset Age of this Age Resolved Age Notes LastModified by Organization Details LastModified Time Mother Chronic obstructive pulmonary disease [email or web address] Not available 2022 18:04:25 Mother Diabetes mellitus [email or web address] Not available 2022 18:04:40 Mother Vascular disorder [email or web address] Not available 2022 18:04:51 Mother Chronic kidney disease Not available 2022 18:04:57 Mother Congestive heart failure [email or web address] Not available 2022 18:05:12 Medical History No medical history recorded. Gynecological HistoryNo gynecological history recorded. Obstetrics History GPAL:G 0 P 0 0 0 0 Past Encounters Encounter ID Performer Location Encounter Start Date Encounter Closed Date Diagnosis/Indication Diagnosis SNOMED-CT Code Diagnosis ICD10 Code Diagnosis Note [id number] [address] [place] [address] 07/14/2017 15:56:12 07/14/2017 16:34:44 [id number] [place] [address] 04/13/2018 16:40:09 04/13/2018 17:31:30 [id number] [place] [address] 04/16/2018 09:01:12 04/16/2018 10:20:43 [id number] [place] [address] [address] [place] [address] 01/15/2023 17:32:34 01/15/2023 18:40:09 Increased frequency of urination 230621444 R35.0 patient to follow up with 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 Elevated blood-pressure reading without diagnosis of hypertension 864874013 R03.0 Health Concerns Section Related Observation LastModified by Organization Detai ls LastModified Time None Recorded Concern Status LastModified by Organization Details LastModified Time None Recorded Advance Directives Directive None Recorded Payers Encounter Date Sequence Insurance Name Policy Number Policy Arnold Covered Member ID Arnold Member ID Guarantor Name 07/14/2017 1 [facility] [id number] Brianne L Yuliana [id number] Brianne L Yuliana 04/13/2018 1 [facility] [id number] Brianne L Yuliana [id number] Brianne L Yulaina 04/16/2018 [facility] [id number] Brianne L Yuliana [id number] Brianne L Yuliana 01/15/2023 [facility] [id number] Brianne L Yuliana [id number] Brianne L Yuliana Notes Date Note Type Note Provider Name and Address Organization Details Recorded Time 3 text/html Urinary Complaint FemaleReported bypatient.source of patient informationInformation obtained from patient; Patient arrived at Urgent Care ambulatory UTI Symptoms:no blood in the urine; no pain during urination; no vaginal discharge; no urgency; no pain in the flank; no fever/chills; no incontinence; no recurrent UTI; no known exposure to STD;urinary frequency;abdominal pain Severity:mild Duration:1 days Modifying Factors:nothing gives reliefNotes:frequency and urgency x 1 day. denies any fever or fever with chills, denies any History of renal stone or bladder issues. frequency and urgency x 1 day. denies any fever or fever with chills, denies any History of renal stone or bladder issues. Burke Rey NP [address] [place], [address], PA - [facility] 01/15/2023 18:34:39 OBGyn Episode No OBEpisode recorded.
--- OUTSIDE RECORDS SUMMARY | 2024-07-23 07:59 | XMS_ITS | Patient Health Record ---
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 Name Role Phone Luis Stoner MD Primary Care Provider Unavailab Luis Avendano Unavailable [phone] ALLERGIES Allergen (clinical drug ingredient) Drug/Non Drug Allergy documented on EMR Reaction Allergy Type Onset Date Status codeine codeine (uncoded) upset stomach Allergy Active REASON FOR REFERRAL No Information MEDICATIONS Medication SIG (Take, Route, Frequency, Duration) Notes Start Date End Date Status Turmeric 500 MG 2tablets Orally once a day Active Celecoxib 200 MG TAKE 1 CAPSULE BY MO UTH EVERY DAY Oral for 30 Active Vitamin D3 50 MCG (1999 UT) TAKE 1 TABLET BY MOUTH EVERY DAY Diagnosis Unavailable Oral for 30 Active Lidocaine 5 % APPLY 1 PATCH TO SKI N LEAVE ON FOR 12 HOURS THEN OFF FOR 12 HOURS Diagnosis Unavailable External for 30 Active IMMUNIZATIONS Vaccine Route Administration Date Status Comme nts Influenza Unknown 02/27/2022 Administered SOCIAL HISTORY Sex Assigned At : Social History Observation Description Sex Assigned At Unknown PROBLEMS Problem Type ICD Code Onset Dates Problem Status W/U Status Risk SNOMED Code Notes Problem Encounter for screening for malignant neoplasm of colon (Z12.11) Active confirmed 766047255 Problem History of adenomatous polyp of colon (Z86.010) Active confirmed 190170475 Problem Personal history of colonic polyps (Z86.010) Active confirmed History of poly p of colon (situation) (476168243) Problem Encounter for screening for malignant neoplasm of rectum (Z12.12) Active confirmed Screening fo r malignant neoplasm of rectum (216329012) Problem Abdominal pain, epigastric (R10.13) Active confirmed 41634477 Problem Preprocedural examination (Z01.818) Active confirmed Preprocedural examination (952239014055275) Problem Diverticulosis of sigmoid colon (K57.30) Active confirmed Diverticulosis of sigmoid colon (186342340) PLAN OF TREATMENT Pending Test Test Name Order Date US ABD 02/27/2013 Future Test Test Name Order Date COLONOSCOPY 06/15/2016 COLONOSCOPY 03/01/2022 Insurance Providers Payer Name Payer Address Payer Phone Subscriber Number Group Number Insured Name Patient Relationship to Insured Coverage Start Date Coverage End Date [facility] [address] [facility] [place] [phone] [id number] LYNDA LEO Self - patient is the insured MEDICAL (GENERAL) HISTORY Medical History History ICD Code Denies NV,DM,CVA,Lung disease,renal dise ase Screening colonoscopy--Tubular adenoma r emoved in 02/2011 EGD in 02/[address] Yanick grant mild gastritis and duodenitis--Neg. H.pylori biopsy, normal abdominal U/S in 11/2009--Normal LFT's and lucas creatic enzymes, neg abd U/S in 02/2013 in ER and neg abdominal CT scan in 03/2013 Neg. TTG IgA antibody in 02/2013--IgA lev el was WNL Negative sceening colonoscopy in 11/2016 Chronic back pain Surgical History Surgery Date(Month/Year) cholecystectomy knee surgery section x 2
--- OUTSIDE RECORDS SUMMARY | 2024-07-23 07:59 | XMS_ITS | Patient Health Record ---
Author Organization Luis Stoner III, MD Address [address] [place] [address] [place] [address] Care Team Providers Care Ethyl Blender Name Role Phone Luis Stoner Primary Care Provider Allergies Allergen (clinical drug ingredient) Drug/Non Drug Allergy documented on EMR Reaction Allergy Type Onset Date Status No Known Drug Allergy Unknown Drug Allergy Active Results Component Value Reference Range Notes URINE DIP STICK Reviewed date:07/25/2023 01:33:18 PM Interpretation: Performing Lab: Notes/Report: SG 1.010 1.005 - 1.025 pH 6.0 5.0 - 9.0 CHER 70 Negative - NIT Negative Negative - PRO 15 Negative - Trace GLU Negative Negative - KET Negative Negative - UBG 0.2 0.1 - 1.8 ORION Negative 0.2 - 1.3 BLD Positive Negative - MM tomosynthesis screening B I Reviewed date:11/13/2023 04:18:55 AM Interpretation: Performing Lab: Notes/Report: [facility] [address] [place] [address] Mammography Report Signed Patient: Brianne Bridges MR#: [id number] : 1960 Acct:[id number] Age/Sex: 63 / F ADM Date: 10/05/23 Loc: HO.MAMMO Attending Dr: Luis Stoner MD Ordering Physician: Luis Stoner MD Results: 1Negativ e Date of Service: 10/05/23 Follow Up: 1 Year From Orig inal Mammogram Procedure(s): MM tomosynthesis screening BI Accession Number(s): [id number] cc: Luis Stoner MD EXAMINATION: MM SCREENING DIGITAL BREAST TOMOSYNTHESIS, BILATERAL CLINICAL INFORMATION: Screening. Asymptomatic. COMPARISON: Mammography: This study is compared with prior exams dating back to 2018. TECHNIQUE: Digital breast tomosynthesis is performed in both the craniocaudal and mediolateral oblique views along with computer-aided detection (CAD). Synthesized 2D images are generated from the tomosynthesis. FINDINGS: The breasts are heterogeneously dense, which may obscure small masses (ACR BI-RADS breast composition Category c). There are no significant masses, abnormal calcifications, or other abnormalities. MM/MM tomosynthesis screening BI IMPRESSION: No mammographic evidence of malignancy. ASSESSMENT: BI-RADS BI-RADS 1 - Negative RECOMMENDATION: Routine annual mammography screening. 1 year F/U This examination should not preclude the clinical evaluation of a suspicious palpable abnormality. This patient's information was entered into a reminder system with a target due date for their next mammogram. Dictated By: Torrie Chavarria MD Signed By: <Electronically signed by Torrie Chavarria MD in OV> 11/05/23 1532 DD/ 1125 TD/TT: Fisher Eel: [place] [facility]'s [address] [place] [address] Mammography Report Signed Patient: Brianne Bridges MR#: [id number] : 1960 Acct:[id number] Age/Sex: 63 / F ADM Date: 10/05/23 Loc: [facility]ANTHA Attending Dr: Luis Stoner MD Ordering Physician: Luis Stoner MD Results: 1Negativ e Date of Service: 10/05/23 Follow Up: 1 Year From Orig ina Mammogram Procedure(s): MM tomosynthesis screening BI Accession Number(s): [id number] cc: Luis Stoner MD EXAMINATION: MM SCREENING DIGITAL BREAST TOMOSYNTHESIS, BILATERAL CLINICAL INFORMATION: Screening. Asymptomatic. COMPARISON: Mammography: This st udy is compared with prior exams dating back to 2018. TECHNIQUE: Digital breast tomosynthesis is performed in both the craniocaudal and mediolateral oblique views along with computer-aided detection (CAD). Synthesized 2D image s are generated from the tomosynthesis. FINDINGS: The breasts are heterogeneously dense, which may obscure small masses (ACR BI-RADS breast composition Category c). There are no significant masses, abnormal calcifications, or other abnormalities. MM/MM tomosynthesis screening BI IMPRESSION: No mammographic evidence of malignancy. ASSESSMENT: BI-RADS BI-RADS 1 - Negative RECOMMENDATION: Routine annual mammography screening. 1 year F/U This examination vinh uld not preclude the clinical evaluation of a suspicious palpable abnormality. This patient's information was entered into a reminder system with a target due date for their next mammogram. Dictated By: Torrie Chavarria MD Signed By: <Electronically signed by Torrie Chavarria MD in OV> 11/05/23 1532 DD/ 1125 TD/TT: Fisher Eel: Complete Blood Count Auto Di ff Reviewed date:12/26/2023 05:02:59 PM Interpretation: Performing Lab:[facility], [address] [place] [phone] Notes/Report: White Blood Count 4.9 4.8-10.8 X10*3/uL Red Blood Count 3.90 4.20-5.50 X10*6/uL Hemoglobin 12.9 12.0-16.0 g/dl Hematocrit 38.2 37.0-47.0 % Mean Corpuscular Volume 97.9 80.0-98.0 fL Mean Corpuscular Hemoglobin 33.1 27.0-33.0 pg Mean Corpuscular HGB Conc 33.8 31.0-35.0 g/dl Red Cell Distribution Width 11.9 11.0-16.0 % Platelet Count 272 160-400 X10*3/uL Mean Platelet Volume 8.1 9.4-12.3 fL Neutrophils Percent Auto 54.8 45-73 % Imm Gran Pct Auto 0.4 0.0-0.4 % Lymphocytes Percent Auto 33.5 20-40 % Monocytes Percent Auto 8.1 2-11 % Eosinophils Percent Auto 2.8 0-4 % Basophils Percent Auto 0.4 0-2 % NRBC Pct Auto 0.0 0.0-0.2 /100WBC Neutrophils Absolute Auto 2.7 2.0-8.3 x10*3/u L Imm Gran Abs Auto 0.02 0.00-0.03 X10*3/uL Lymphocytes Absolute Auto 1.7 1.2-4.9 X10*3/u L Monocytes Absolute Auto 0.4 0.1-1.2 X10*3/uL Eosinophils Absolute Auto 0.1 0.0-0.4 X10*3/u L Basophils Absolute Auto 0.0 0.0-0.2 X10*3/uL NRBC Abs Auto 0.000 0.0-0.012 X10*3/uL Comprehensive Dwight. Panel Fa st Reviewed date:12/26/2023 05:02:59 PM Interpretation: Performing Lab:[facility], [address] [place] [phone] Notes/Report: Sodium 140 135-145 mmol/L Potassium 3.9 3.3-5.1 mmol/L Chloride 105 96-108 mmol/L Carbon Dioxide 25 22-29 mmol/L Anion Gap 14 12-20 Blood Urea Nitrogen 18 9-16 mg/dL Creatinine 0.82 0.5-1.4 mg/dL Estimated Glomerular Filt Rate > 60 NOTE: For -Luxembourger individuals, multiply the result by 1.210. Chronic Kidney Disease: Estimated GFR < 60 mL/min/1.73m2 Severe Kidney Disease: Estimated GFR < 15 mL/min/1.73m2 Glucose Fasting 102 60-99 mg/dL A fasting glucose from 100-125 mg/dl is considered impaired (pre-diabetes). Calcium 9.5 8.4-10.2 mg/dL Bilirubin Total 0.3 0.0-1.0 mg/dL Aspartate Amino Transferase 16 5-31 U/L Alanine Aminotransferase 14 0-31 U/L Total Protein 7.2 6.5-8.0 g/dL Albumin Level 4.4 3.5-5.0 g/dL Alkaline Phosphatase 71 39-117 U/L Lipid Panel Reviewed date:12/26/2023 05:02:59 PM Interpretation: Performing Lab:[facility], [address] [place] [phone] Notes/Report: Triglycerides 68 <150 mg/dL Desirable Triglyceride: less than 150 mg/dL Borderline High Triglyceride 150-199 mg/dL High Triglyceride: 200-499 mg/dL Very High Triglyceride: greater than or equal to 5OO mg/dL Cholesterol 196 <200 mg/dL Desirable Cholesterol: less than 200 mg/dL Borderline High Cholesterol: 200-239 mg/dL High Cholesterol: greater than 239 mg/dL LDL Cholesterol Calculated 122 <100 mg/dL Desirable LDL: less than 100 mg/dL Near Optimal/Above Optimal LDL: 110-129 mg/dL Borderline High LDL: 130-159 mg/dL High LDL: 160-189 mg/dL Very High LDL: greater than or equal to 190 mg/dL HDL Cholesterol 61 >40 mg/dL Desirable HDL: greater than 40 mg/dL Note: This HDL assay may give artificially low results in patients with liver disease. Reason For Referral No Information Medications Medication SIG (Take, Route, Frequency, Duration) Notes Start Date End Date Status Omeprazole 20 MG 1 capsule 30 minutes before morning meal Orally Once a day Active Cyclobenzaprine HCl 5 MG 1 tablet Orally twice a day prn muscle spasm 10/18/2023 Active Vitamin D3 50 MCG (1999 UT) TAKE 1 TABLE T BY MOUTH EVERY DAY Active Meclizine HCl 25 MG 1 tablet Orally Thre e times a day prn vertigo for 7 days Active Immunizations Vaccine Route Administration Date Status Comme nts COVID- 19 Vaccine Unknown 08/26/2020 Administered COVID- 19 Vaccine Unknown 09/16/2020 Administered COVID- 19 Vaccine Unknown 03/27/2021 Administered Tdap Unknown 03/05/2015 Administered Tdap Unknown 02/03/2014 Administered Tdap Unknown 03/26/2018 Administered COVID- 19 Vaccine Unknown 03/05/2022 Administered COVID PFIZER Unknown 03/27/2021 Administered COVID PFIZER Unknown 08/26/2020 Administered COVID PFIZER Unknown 09/16/2020 Administered Influenza, quad Unknown 02/27/2022 Administered Influenza no Preserv 3 and > Unknown 01/30/2021 Adminis tered RSV Adjuvant Unknown 05/20/2023 Administered COMIRNATY Pfizer-BioNTech Unknown 04/13/2023 Administer ed Influenza-iiv4 p-free high dose Unknown 03/23/2023 Admi nistered Social History Tobacco Use: Social History Observation Description Date Details (start date - stop date) Former Smoker NA - NA Sex Assigned At : Social History Observation Description Sex Assigned At Female Tobacco Use/Smoking Question Answer Notes Patient is a former smoker How long has it been since you last smoked? > 10 years Additional Findings: Tobacco Non-User Ex-cigaret te smoker Alcohol Screen Question Answer Notes Did you have a drink contain ing alcohol in the past year? Yes How often did you have a dri nk containing alcohol in the past year? Never (0 point) How many drinks did you have on a typical day when you were drinking in the past year? 1 or 2 drinks (0 point) How often did you have 6 or more drinks on one occasion in the past year? Never (0 point) Points 0 Interpretation Negative Problems Problem Type SNOMED Code ICD Code Onset Dates Problem Status W/U Status Risk Notes Problem 7762255 Former smoker (Z87.891) Active confirmed We have formulated a plan to prevent relapse in times of stress or illness. Problem 139538801 Lumbar radiculopathy (M54.16) Active confirmed Her back pain is currently stable and improving slowly. The fusion is healing. The pain is much improved Problem Gastroesophageal reflux disease (249353313) GERD (gastroesophageal reflux disease) (K21.9) Active confirmed She attributes her symptoms of reflux to dysfunction of the sphincter of Oddi. The discomfort is well controlled on current medication. Problem Vitamin D deficiency (87715753) Vitamin D deficiency (E55.9) Active confirmed Vitamin D supplements. Problem 915560941939897 Spondylolisthesi s of lumbar region (M43.16) Active confirmed She is being seen by physiatry to stand having injections in the lumbar spine. Problem hypercholesterolemi a (disorder) (25390690) Hypercholesteremi a (E78.00) Active confirmed Her total cholesterol is within her target range. Her weight is stable and in the normal range. We have discussed her diet and nutrition today. Problem 640856120 Adenomatous poly p (D36.9) Active confirmed She will undergo colonoscopy at five-year intervals. Problem 750642206 Pars defect (M43.00) Active confirmed This is a congenital abnormality seen on multiple magnetic resonance images. She will continue on current therapy for her low back pain Vital Signs Heart Rate 72 /min 02/26/2024 Temperature 97.0 degrees Fahrenheit 02/26/2024 Blood pressure diastolic 79 mm Hg 02/26/2024 Height 62 in 02/26/2024 Blood pressure systolic 135 mm Hg 02/26/2024 Weight 128 lbs 02/26/2024 BMI 23.41 kg/m2 02/26/2024 Encounters Encounter Location Date Provider Diagnosis Luis Stoner III, MD [address] [place] [address] [place] [address] 07/25/2023 Luis Stoner Vitamin D deficiency E55.9 ; Hypercholesteremia E78.00 ; GERD (gastroesophageal reflux disease) K21.9 ; Lumbar radiculopathy M54.16 ; Former smoker Z87.891 and Enlarged ovary N83.8 Luis Stoner III, MD [address] [place] [address] [place] [address] 08/08/2023 Luis Stoner Vitamin D deficiency E55.9 ; GERD (gastroesophageal reflux disease) K21.9 ; Lumbar radiculopathy M54.16 and Gastroenteritis K52.9 Luis Stoner III, MD [address] [place] [address] [place] [address] 08/15/2023 Luis Stoner Vitamin D deficiency E55.9 ; Lumbar radiculopathy M54.16 ; GERD (gastroesophageal reflux disease) K21.9 and Former smoker Z87.891 Luis Stoner III, MD [address] [place] [address] [place] [address] 08/29/2023 Luis Stoner Vitamin D deficiency E55.9 ; Hypercholesteremia E78.00 ; GERD (gastroesophageal reflux disease) K21.9 ; Spondylolisthesis of lumbar region M43.16 ; Lumbar radiculopathy M54.16 ; Former smoker Z87.891 and Pars defect M43.00 Luis Stoner III, MD [address] [place] [address] [place] [address] 10/18/2023 Luis Stoner Lumbar paraspinal mu scle spasm M62.830 ; GERD (gastroesophageal reflux disease) K21.9 ; Vitamin D deficiency E55.9 ; Hypercholesteremia E78.00 ; Spondylolisthesis of lumbar region M43.16 and Former smoker Z87.891 Luis Stoner III, MD [address] [place] [address] [place] [address] 12/26/2023 Luis Stoner Lumbar paraspinal mu scle spasm M62.830 ; Vitamin D deficiency E55.9 ; Hypercholesteremia E78.00 ; GERD (gastroesophageal reflux disease) K21.9 ; Former smoker Z87.891 and Unspecified ovarian cyst, left side N83.202 Luis Stoner III, MD [address] [place] [address] [place] [address] 02/26/2024 Luis Stoner Vitamin D deficiency E55.9 ; Hypercholesteremia E78.00 ; GERD (gastroesophageal reflux disease) K21.9 and Lumbar radiculopathy M54.16 Luis Stoner III, MD [address] [place] [address] [place] [address] 08/03/2023 Luis Stoner III, MD [address] [place] [address] [place] [address] 08/04/2023 Luis Stoner III, MD [address] [place] [address] [place] [address] 10/24/2023 Luis Stoner III, MD [address] [place] [address] [place] [address] 12/27/2023 Luis Stoner Hypercholesteremia E 78.00 ; GERD (gastroesophageal reflux disease) K21.9 and Lumbar radiculopathy M54.16 Luis Stoner III, MD [address] [place] [address] [place] [address] 04/12/2024 Luis Stoner Assessments Encounter Date Diagnosis (ICD Code) Assessment Notes T reatment Notes Treatment Clinical Notes 07/25/2023 Vitamin D deficiency (ICD-10 - E55.9) She was continued on oral vitamins. 07/25/2023 Hypercholesteremia (ICD-10 - E78.00) A fasting lipid profile has been ordered prior to her next visit. 08/08/2023 GERD (gastroesophage al reflux disease) (ICD-10 - K21.9) Her reflux symptoms are controlled with medications. 08/08/2023 Vitamin D deficiency (ICD-10 - E55.9) She was continued on oral vitamins. Her vitamin D level is therapeutic. 08/15/2023 Lumbar radiculopathy (ICD-10 - M54.16) Her back pain is currently stable and improving slowly. 08/15/2023 Vitamin D deficiency (ICD-10 - E55.9) She was continued on oral vitamins. Her vitamin D level is therapeutic. 08/29/2023 Vitamin D deficiency (ICD-10 - E55.9) She was continued on oral vitamins. Her vitamin D level is therapeutic. 08/29/2023 Hypercholesteremia (ICD-10 - E78.00) Her lipids are currently stable with a total cholesterol 203. No change in her regimen was made. 10/18/2023 GERD (gastroesophage al reflux disease) (ICD-10 - K21.9) Her reflux symptoms are controlled with medications. 10/18/2023 Lumbar paraspinal muscle spasm (ICD-10 - M62.830) We initiated a regimen of heat rest ibuprofen acetaminophen and cyclobenzaprine with a follow-up in several days. 12/26/2023 Vitamin D deficiency (ICD-10 - E55.9) She was continued on oral vitamins. Her vitamin D level is therapeutic. 12/26/2023 Lumbar paraspinal muscle spasm (ICD-10 - M62.830) After the neurosurgery her back pain has been better. She continues to have pain since last January, but it is mild.. He has a followup in the near future after a CT scan with her neurosurgeon. 02/26/2024 Vitamin D deficiency (ICD-10 - E55.9) Vitamin D supplements. 02/26/2024 Hypercholesteremia (ICD-10 - E78.00) Her total cholesterol is within her target range. Her weight is stable and in the normal range. We have discussed her diet and nutrition today. 07/25/2023 GERD (gastroesophage al reflux disease) (ICD-10 - K21.9) Her reflux symptoms are controlled with medications. 08/08/2023 Lumbar radiculopathy (ICD-10 - M54.16) The surgery has been done without complication, and the wound is healed. She continues to have localized back pain. She will continue on her current therapy and follow-up with neurosurgery. 08/15/2023 GERD (gastroesophage al reflux disease) (ICD-10 - K21.9) Her reflux symptoms are controlled with medications. 08/29/2023 GERD (gastroesophage al reflux disease) (ICD-10 - K21.9) Her reflux symptoms are controlled with medications. 10/18/2023 Vitamin D deficiency (ICD-10 - E55.9) She was continued on oral vitamins. Her vitamin D level is therapeutic. 12/26/2023 Hypercholesteremia (ICD-10 - E78.00) Her lipids are currently stable with a total cholesterol 203. No change in her regimen was made. 02/26/2024 GERD (gastroesophage al reflux disease) (ICD-10 - K21.9) She attributes her symptoms of reflux to dysfunction of the sphincter of Oddi. The discomfort is well controlled on current medication. 12/27/2023 Hypercholesteremia (ICD-10 - E78.00) 07/25/2023 Lumbar radiculopathy (ICD-10 - M54.16) The surgery has been done without complication, and the wound is healed. She continues to have localized back pain. She will continue on her current therapy and follow-up with neurosurgery. 08/08/2023 Gastroenteritis (ICD -10 - K52.9) She is using Imodium and consuming a liquid diet. She was able to keep down some rise. She is beginning to improve. Current therapy was continued. 08/15/2023 Former smoker (ICD-1 0 - Z87.891) We have formulated a plan to prevent relapse in times of stress or illness. 08/29/2023 Spondylolisthesis of lumbar region (ICD-10 - M43.16) She is being seen by physiatry to stand having injections in the lumbar spine. 10/18/2023 Hypercholesteremia (ICD-10 - E78.00) Her lipids are currently stable with a total cholesterol 203. No change in her regimen was made. 12/26/2023 GERD (gastroesophage al reflux disease) (ICD-10 - K21.9) Her reflux symptoms are controlled with medications. 02/26/2024 Lumbar radiculopathy (ICD-10 - M54.16) Her back pain is currently stable and improving slowly. The fusion is healing. The pain is much improved 12/27/2023 GERD (gastroesophage al reflux disease) (ICD-10 - K21.9) 07/25/2023 Former smoker (ICD-1 0 - Z87.891) We have formulated a plan to prevent relapse in times of stress or illness. 08/29/2023 Lumbar radiculopathy (ICD-10 - M54.16) Her back pain is currently stable and improving slowly. 10/18/2023 Spondylolisthesis of lumbar region (ICD-10 - M43.16) She is being seen by physiatry to stand having injections in the lumbar spine. 12/26/2023 Former smoker (ICD-1 0 - Z87.891) We have formulated a plan to prevent relapse in times of stress or illness. 12/27/2023 Lumbar radiculopathy (ICD-10 - M54.16) 07/25/2023 Enlarged ovary (ICD- 10 - N83.8) She has been [facility] to [facility] for an enlarged ovary. 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 We will await the results of this consultation. 08/29/2023 Former smoker (ICD-1 0 - Z87.891) We have formulated a plan to prevent relapse in times of stress or illness. 10/18/2023 Former smoker (ICD-1 0 - Z87.891) We have formulated a plan to prevent relapse in times of stress or illness. 12/26/2023 Unspecified ovarian cyst, left side (ICD-10 - N83.202) She will remain under the care of OPERATOR TECHNICIAN. 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 She will continue on current therapy for her low back pain Plan Of Treatment Pending Test Test Name Order Date PROFILE, FASTING (COMPREHENSIVE METABOLI C) 07/07/2021 PROFILE, FASTING (COMPREHENSIVE METABOLI C) 04/20/2023 PROFILE, FASTING (COMPREHENSIVE METABOLI C) 02/26/2024 PROFILE, FASTING (COMPREHENSIVE METABOLI C) 01/17/2023 PROFILE, FASTING (COMPREHENSIVE METABOLI C) 07/15/2022 MAGNESIUM 02/26/2024 MAGNESIUM 07/15/2022 LIPID PANEL 07/15/2022 LIPID PANEL 01/17/2023 CBC w DIFF 01/17/2023 CBC w DIFF 07/15/2022 CBC w DIFF 07/07/2021 VITAMIN D 25-OH TOTAL 01/17/2023 VITAMIN D 25-OH TOTAL 07/15/2022 CBC WITH AUTO DIFF 04/20/2023 CBC WITH AUTO DIFF 02/26/2024 Lipid Panel 02/26/2024 Lipid Panel 04/20/2023 Vitamin D 25-OH Total 04/20/2023 Vitamin D 25-OH Total 02/26/2024 XR lumbar spine 2-3V 08/15/2023 XR sacrum coccyx min 2V 08/15/2023 US pelvic and transvaginal 01/24/2023 Next Appt Details Provider Name:Luis Stoner, 07/29/2024 02:00:00 PM, [address] [place] [address] DR, [address], [place], [address], Insurance Providers Payer Name Payer Address Payer Phone Subscriber Number Group Number Insured Name Patient Relationship to Insured Coverage Start Date Coverage End Date [facility] [address] [facility] [address] [facility] [place] [phone] [id number] Brianne Bridges Self - patient is the insured Medical (General) History Medical History History ICD Code Vitamin D deficiency E55.9 GERD (gastroesophageal reflux disease) K 21.9 L5-S1 radiculopathy Hyperlipidemia Former smoker 1990 Tubular adenoma 2011 Gastritis 2011 Internal hemorrhoids 2011 DJD right knee L5-S1 pars defect Spondylolisthesis lumbar spine Dysfunction of the sphincter of Oddi Surgical History Surgery Date(Month/Year) Lumbar spine fusion 02/02/20232019 analgesic injections elisha mbar spine prior near [place] [facility] Upper endoscopy and colonoscopy, 1 tubul ar adenoma,[facility], Dr. Luciano 2010 Right knee arthroscopy Cholecystectomy x 2 [place] teeth extractions
--- OUTSIDE RECORDS SUMMARY | 2024-07-23 07:59 | XMS_ITS ---
Author Organization Luis Stoner III, MD Address [address] [address] Care Team Providers Care Hazardous Materials Waste Technician Name Role Phone Luis Stoner Primary Care Provider REASON FOR VISIT needs new order for labs prior to annual exam Social History Sex Assigned At : Social History Observation Description Sex Assigned At Female Encounters Encounter Location Date Provider Diagnosis Luis Stoner III, MD [address] [place] [address] [place] [address] 12/27/2023 Luis Stoner Hypercholesteremia E 78.00 ; GERD (gastroesophageal reflux disease) K21.9 and Lumbar radiculopathy M54.16 Assessments Encounter Date Diagnosis (ICD Code) Assessment Notes Treat ment Notes Treatment Clinical Notes 12/27/2023 Hypercholesteremia (ICD-10 - E78.00) 12/27/2023 GERD (gastroesophage al reflux disease) (ICD-10 - K21.9) 12/27/2023 Lumbar radiculopathy (ICD-10 - M54.16) Plan Of Treatment Next Appt Details Provider Name:Luis Stoner, 07/29/2024 02:00:00 PM, [address] [place] [address] [place], [address], Progress Notes * Brianne BRIDGES LDOB: (63 yo F)Acc No.[id number]:12/27/2023 Patient:?Tawnya Bridges :1960???Age:63 Y???Sex:Female Address:[address] [place], [place] [address], [address] Subjective: * Chief Complaints: * ???Needs new order for labs prior to annual exam * Medical History:? * Surgical History:? * Hospitalization/Major Diagno stic Procedure:? * Medications:? Objective: Assessment: * Assessment: 1.?Hypercholesteremia - E78. 00?2.?GERD (gastroesophageal reflux disease) - K21.9?3.?Lumbar radiculopathy - M54.16? Plan: * Treatment: 2.?GERD (gastroesophageal re flux disease)?LAB: PROFILE, FASTING (COMPREHENSIVE METABOLIC) ?LAB: CBC w DIFF ?LAB: Lipid Panel 3.?Lumbar radiculopathy?LAB: PROFILE, FASTING (COMPREHENSIVE METABOLIC) ?LAB: CBC w DIFF ?LAB: Lipid Panel * Procedure Codes:? * true * Date:? Generated for Nayla hanna/Leonel/eTransmitting on:?07/23/2024 07:58 AM EST
[2024-07-23 10:16] LABS: MANUAL DIFF FLAG NO
[2024-07-23 10:21] LABS: Basophils Percent Auto 0.6 % (0-2); Eosinophils Absolute Auto 0.2 X10*3/uL (0.0-0.4); Hematocrit 37.3 % (37.0-47.0); Hemoglobin 12.6 g/dl (12.0-16.0); Imm Gran Abs Auto 0.02 X10*3/uL (0.00-0.03); Imm Gran Pct Auto 0.3 % (0.0-0.4); Lymphocytes Absolute Auto 2.3 X10*3/uL (1.2-4.9); Lymphocytes Percent Auto 36.3 % (20-40); Mean Corpuscular HGB Conc 33.8 g/dl (31.0-35.0); Mean Corpuscular Hemoglobin 33.1 pg (27.0-33.0); Mean Corpuscular Volume 97.9 fL (80.0-98.0); Mean Platelet Volume 8.7 fL (9.4-12.3); Monocytes Absolute Auto 0.6 X10*3/uL (0.1-1.2); Monocytes Percent Auto 8.8 % (2-11); Neutrophils Absolute Auto 3.3 x10*3/uL (2.0-8.3); Platelet Count 188 X10*3/uL (160-400); Red Blood Count 3.81 X10*6/uL (4.20-5.50); White Blood Count 6.4 X10*3/uL (4.8-10.8)
[2024-07-23 11:07] LABS: Alanine Aminotransferase 15 U/L (0-31); Albumin Level 4.2 g/dL (3.5-5.0); Alkaline Phosphatase 67 U/L (39-117); Anion Gap 12 (12-20); Aspartate Amino Transferase 21 U/L (5-31); Bilirubin Total 0.3 mg/dL (0.0-1.0); Blood Urea Nitrogen 16 mg/dL (9-16); Carbon Dioxide 28 mmol/L (22-29); Chloride 106 mmol/L (96-108); Cholesterol 192 mg/dL (<200); Estimated Glomerular Filt Rate > 60; Glucose Fasting 94 mg/dL (60-99); HDL Cholesterol 60 mg/dL (>40); LDL Cholesterol Calculated 119 mg/dL (<100); Magnesium 2.1 mg/dL (1.6-2.6); Potassium 3.8 mmol/L (3.3-5.1); Sodium 142 mmol/L (135-145); Total Protein 7.2 g/dL (6.5-8.0); Triglycerides 69 mg/dL (<150); Vitamin D 25-OH Total 59.3 ng/mL (>30)
== END 2024-07-23 07:56 | disposition home or self-care (01) ==
LOC: HO.10HDL 07:55
PROVIDERS: Visit Provider Internal Medicine Medical Oncology
DX: M62.830 Muscle spasm of back (principal); E55.9 Vitamin D deficiency, unspecified; E78.00 Pure hypercholesterolemia, unspecified; K21.9 Gastro-esophageal reflux disease without esophagitis
CPT/HCPCS: 36415; 80053; 80061; 82306; 83735; 85025

== ENCOUNTER 2024-10-29 09:57 | Outpatient (REF) | payer OTHER, SELFPAY ==
[2024-12-03 07:57] LABS: HPV Genotype 16 Negative (Negative); HPV Genotype 18 Negative (Negative); HPV High Risk Negative (Negative)
== END 2024-10-29 09:58 | disposition home or self-care (01) ==
LOC: HO.LNP 09:57
PROVIDERS: PCP Internal Medicine Medical Oncology; Visit Provider Advanced Practice Midwife
DX: Z01.419 Encounter for gynecological examination (general) (routine) without abnormal findings (principal)
CPT/HCPCS: 87626; 88175

== ENCOUNTER 2024-10-29 09:57 | Outpatient (AMB) | payer OTHER, SELFPAY ==
--- NOTE | 2024-10-29 10:01 | MHC.OFFVIS ---
Vital Signs 10/29/24 10:03 Height 5 ft 3 in Weight 134 lb BMI 23.7 BP 126/80 Intake Visit Reasons: FORM [employer]TER [employer] annual exam Claims Attorney: Claims Attorney Present (Jesica) Allergies codeine [Codeine] Allergy (Intermediate, Verified 10/29/24 10:03) FAINTING, faints From Darvocet-N 100 Allergy (Mild, Uncoded 10/24/23 10:23) Fainting From Percocet Allergy (Mild, Uncoded 10/24/23 10:23) Fainting HPI Comments Details: She is a postmenopausal woman presenting for her annual watch engineer examination. She is doing well with no watch engineer concerns. Had a complex ovarian cyst followed at [facility] with Dr. Chung was told everything appears to be benign not to worry but if she was worried she could do an 18 month follow up. No follow up notes on record today. Currently sexually active. Denies any vaginal dryness or irritation. STI testing offered; she declines. Attempting to eat a healthy diet with calcium and vitamin D and stays active with exercise. Last pap smear; 2019. Last mammogram; 2023. Colonoscopy is UTD. Denies any family history of breast, ovarian or colon cancer. [facility] Medical History Complex ovarian cyst Chronic back pain Surgical History Hx of section Hx of knee surgery Hx of cholecystectomy Hx of colonoscopy Hx of esophagogastroduodenoscopy Social History Alcohol intake: current Alcohol intake frequency: a few times a week Patient Tobacco Use Status: Former Tobacco user Tobacco use type: Cigarette Cigarette Packs Per Day: 1.5 Cigarettes Per Day: 30.0 Years Smoked: 15 Sexual orientation: Straight/Heterosexual Gender identity: Female Female Reproductive History Menstrual Total pregnancies: 2 Full term: 2 Number of Living Children: 2 Date of last pap smear: 07/05/19 (neg pap and hpv) Date of Mammogram: 10/05/23 (Birad 1) Review of Systems Const All systems reviewed & are unremarkable except as noted in HPI and below Reports as per HPI Eyes Reports no additional complaints ENT Reports no additional complaints Card Reports no additional complaints Resp Reports no additional complaints GI Reports as per HPI and Reports no additional complaints Reports as per HPI Musc Reports no additional complaints Skin/Breast Reports as per HPI Neuro Reports no additional complaints Psych Reports no additional complaints Endo Reports no additional complaints Wilbert/Lymph Reports no additional complaints Aller/Immun Reports no additional complaints Physical Exam Vital Signs: BMI result Body Mass Index 23.7 Const General: cooperative, healthy appearing, no acute distress, well developed and alert Orientation/consciousness: patient oriented x3 HEENT Head: Yes normal to inspection Eyes General: appearance normal, both eyes and all related structures Neck Neck: Yes normal visual inspection Thyroid: Thyroid normal Chest Chest palpation & inspection: normal inspection of the chest and other (no puckering, dimpling, peau de orange, retraction, discharge, masses) Breast/axilla inspection: normal inspection of the breasts Breast/axilla palpation: normal palpation of the breasts Resp Effort & Inspection: normal respiratory effort GI Inspection: Yes normal to inspection and Yes scar Palpation (GI): Soft to palpation Rectal Exam - Female: deferred General: Yes bladder normal to palpation External Female Exam: normal external appearance and normal appearance of the urethra Speculum Exam - Vagina: normal appearance of the vagina, normal palpation and normal vaginal discharge Speculum Exam - Cervix: normal appearance of the cervix and normal palpation Bimanual exam- vagina & uterus: normal bimanual exam, normal palpation, uterine size normal, bladder normal to palpation, normal palpation and non-tender Bimanual Exam- Adnexa, other: no masses Skin General skin exam: no rashes or lesions noted Rashes: no rashes Neuro General: patient oriented x3 Cognition (Neuro): normal cognition Extrem General: Yes normal to inspection Psych Attitude: cooperative Thought process: Normal thought process present Assessment & Plan Assessment & Plan (1) Encounter for well woman exam with routine gynecological exam: Code(s): Z01.419 - Encounter for gynecological examination (general) (routine) without abnormal findings Category: Medical Plan Discussed: Current recommendations for pap smears per ASCCP guidelines. Breast awareness, periodic self breast exams and yearly mammogram. Maintain a healthy lifestyle, well balanced diet including Calcium 1,200 mg and Vitamin D 600 IU daily, and routine exercise. 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 Contact the office with any postmenopausal bleeding. Patient verbalizes understanding and agrees to the plan of care. She was given opportunity to ask questions and all questions were answered to the best of my ability. RTO in 1 year for annual watch engineer exam. This note is constructed using voice recognition software. While every effort has been made to ensure accuracy, learning facilitator errors may have been included. Orders: Orders HPV High risk Today Z01.419 - Encounter for gynecological examination (general) (routine) without abnormal findings Pap Smear Today Z01.419 - Encounter for gynecological examination (general) (routine) without abnormal findings Coding Level of Care Code Est Pt Prev Care 40-64y(30733) Diagnoses Encounter for well woman exam with routine gynecological exam Z01.419
[2024-10-29 10:03] VITALS: BP 126/80; BMI 23.7
--- OUTSIDE RECORDS SUMMARY | 2024-10-29 10:37 | XMS_ITS | Patient Health Record ---
Author Organization [facility] Address [address] [place] [address] Care Team Providers Care Independent Marketing Consultant Name Role Phone Luis Stoner MD Primary Care Provider Unavailab Luis Avendano Unavailable [phone] Allergies Allergen (clinical drug ingredient) Drug/Non Drug Allergy documented on EMR Reaction Allergy Type Onset Date Status codeine codeine (uncoded) upset stomach Allergy Active Reason For Referral No Information Medications Medication [...] HOURS Diagnosis Unavailable External for 30 Active Immunizations Vaccine Route Administration Date Status Comme nts Influenza Unknown 02/27/2022 Administered Problems Problem Type SNOMED Code ICD Code Onset Dates Problem Status W/U Status Risk Notes Problem 640033373 Encounter for screening for malignant neoplasm of colon (Z12.11) Active confirmed Problem 205972400 History of adenomatous polyp of colon (Z86.010) Active confirmed Problem History of polyp of colon (situation) (509328541) Personal history of colonic polyps (Z86.010) Active confirmed Problem Encounter for screening for malignant neoplasm of rectum (Z12.12) Active confirmed Problem 75104669 Abdominal pain, epigastric (R10.13) Active confirmed Problem Preprocedural examination (699655247050327) Preprocedural examination (Z01.818) Active confirmed Problem Diverticulosis of sigmoid colon (220799438) Diverticulosis of sigmoid colon (K57.30) Active confirmed Plan Of Treatment Pending Test Test Name Order Date US ABD 02/27/2013 Future Test Test Name Order Date COLONOSCOPY 06/15/2016 COLONOSCOPY 03/01/2022 Insurance Providers Payer Name Payer Address Payer Phone Subscriber Number Group Number Insured Name Patient Relationship to Insured Coverage Start Date Coverage End Date [facility] [address] [facility] [phone] [id number] LYNDA LEO Self - patient is the insured Medical (General) History Medical History History ICD Code Denies VA,DM,CVA,Lung disease,renal dise ase Screening colonoscopy--Tubular adenoma r [...]
== END 2024-10-29 10:24 | disposition home or self-care (01) ==
LOC: HO.HWS 09:58
PROVIDERS: PCP Internal Medicine Medical Oncology; Visit Provider Advanced Practice Midwife
DX: Z01.419 Encounter for gynecological examination (general) (routine) without abnormal findings (principal)
CPT/HCPCS: 99396; 99459

== ENCOUNTER 2024-11-02 09:02 | Outpatient (REF) | payer OTHER, SELFPAY | END 2024-11-02 09:03 | disposition home or self-care (01) | LOC: HO.MAMMO 09:02 | PROVIDERS: PCP Internal Medicine Medical Oncology; Visit Provider Internal Medicine Medical Oncology | DX: Z12.31 Encounter for screening mammogram for malignant neoplasm of breast (principal) | CPT/HCPCS: 77063; 77067 ==

== ENCOUNTER → 2024-11-02 09:15 | Outpatient (BNV) | payer OTHER, SELFPAY | PROVIDERS: PCP Internal Medicine Medical Oncology; Visit Provider Internal Medicine | DX: Z12.31 Encounter for screening mammogram for malignant neoplasm of breast (principal) | CPT/HCPCS: 77063; 77067 ==

== ENCOUNTER 2025-02-19 08:34 | Outpatient (REF) | payer OTHER, SELFPAY ==
--- OUTSIDE RECORDS SUMMARY | 2024-02-26 05:45 | XMS_ITS ---
Author Organization Luis Stoner III, MD Address [address] [place] [address] [place] [address] Care Team Providers Care Application Specialist Name Role Phone Luis Stoner Primary Care Provider Allergies Allergen (clinical drug [...] Date Provider Diagnosis Luis Stoner III, MD [address] [place] [address] [place] [address] 02/26/2024 Luis Stoner Vitamin D deficiency E55.9 [...] spasm 10/18/2023 Vitamin D3 50 MCG (1999 [place]) TAKE 1 TABLE T BY MOUTH EVERY DAY Pending Test Test Name Order Date PROFILE, FASTING (COMPREHENSIVE METABOLI C) 02/26/2024 MAGNESIUM 02/26/2024 CBC WITH AUTO DIFF 02/26/2024 Lipid Panel 02/26/2024 Vitamin D 25-OH Total 02/26/2024 Next Appt Details Follow Up: As Scheduled, Kaitlin son: OV Provider Name:Luis Stoner, 04/29/2025 10:00:00 AM, [address] [place] [address] [place], [place], [address], Provider Name:Luis Stoner, 07/31/2025 10:00:00 AM, [address] [place] [address] [place], [place], [address], Progress Notes * Brianne BRIDGES LDOB: (63 yo F)Acc No.[id number]:02/26/2024 Progress Notes Patient: Brianne Adkins Provider: Lucy Stoner MD :1960 A ge:63 Y S ex:Female Date:02/26/2024 Address:[address] [place], [place] [id number] Subjective: * Chief Complaints: * L umbar [...] continues to take omeprazole for dyspepsia. Her strike planning applications says he is treating dysfunction of the [...] arthroscopy Upper endoscopy and colonoscopy, 1 tubular [place]oma[place] [place]. Luciano analgesic injections lumbar spine prior near [place] spine and sports Lumbar spine fusion 02/02/2023 * Hospitalization/Major Diagno stic Procedure: D enies Past Hospitalization * Family History: F ather: 59 yrs, Lung cancer, diagnosed with HTN, Cancer. M other: alive 85 yrs, copd,chf,ckd,pad,dm2,, diagnosed with HTN, DM, CVD, Hyperlipidemia. C hildren: alive. S on(s): alive. D janhter(s): alive. S iblings: , diagnosed with HTN. [...] grandson and well and healthy granddaughter. Her replanting machine crewman is Dr. Torres at [facility]. Her last mammogram in August 2020 [...] mg/dL) 57 (Ref Range: mg/dL) * Lab:Comprehensive [place]. Pane l Fast * Order Date 12/22/2023 [...] true * Provider: Lucy Stoner MD Date: 02/26/2024 Generated for Nayla hanna/Leonel/Isaacitting on: 0 02/19/2025 09:47 AM EDT History and Physical Notes * HPI (History [...] atraumatic, normocep halic EYES: eomi, perrla, anicte ralene, conjugate EARS: normal NOSE: septum intact NECK/THYROID: [...]
--- OUTSIDE RECORDS SUMMARY | 2024-04-12 06:50 | XMS_ITS ---
Author Organization Luis Stoner III, MD Address [address] [place] [address] Care Team Providers Care Truck Hopper Name Role Phone Luis Stoner Primary Care Provider [phone] REASON FOR VISIT Rx Request Medications Medication SIG (Take, Route, Fr equency, Duration) Notes Start Date End Date Status Meclizine HCl 25 MG 1 tablet Orally Thre e times a day prn vertigo for 7 days 04/20/2023 Activ e Social History Sex Assigned At : Social History Observation Description Sex Assigned At Female Encounters Encounter Location Date Provider Diagnosis Luis Stoner III, MD [address] [place] [address] [place] [address] 04/12/2024 Luis Stoner Plan Of Treatment Medication Medication Name Sig Start Date Stop Date Notes Meclizine HCl 25 MG 1 tablet Orally Thre e times a day prn vertigo for 7 days 04/20/2023 Next Appt Details Provider Name:Luis Stoner, 04/29/2025 10:00:00 AM, [address] [place] [address] [place], [address], Provider Name:Luis Stoner, 07/31/2025 10:00:00 AM, [address] [place] [address] [place], [address], Progress Notes * Brianne BRIDGES LDOB: (63 yo F)Acc No.[id number]:04/12/2024 Patient: Brianne GUEVARA :1960 A ge:63 Y S ex:Female Address:[address] [place] [address] [place], [address] * Refills Refill Meclizine HCl Tablet Chewable, 25 MG, Orally, 21, 1 tablet, Three times a day prn vertigo, 7 days, Refills=6 * true * Date: Generated for Nayla hanna/Leonel/Isaacitting on: 0 02/19/2025 09:48 AM EDT
--- OUTSIDE RECORDS SUMMARY | 2024-07-29 10:00 | XMS_ITS ---
Author Organization Luis Stoner III, MD Address [address] [place] [address] Care Team Providers Care Zoo Keeper Name Role Phone Luis Stoner Primary Care [...] Date Provider Diagnosis Luis Stoner III, MD [address] [place] [address] [place] [address] 07/29/2024 Luis Stoner Vitamin D deficiency E55.9 [...] Up: 6 Months, Reason: OV Provider Name:Luis Stoner, 04/29/2025 10:00:00 AM, [address] [place] [address] [address], [place], [address], Provider Name:Luis Stoner, 07/31/2025 10:00:00 AM, [address] [place] [address] [address], [place], [address], Progress Notes * Brianne BRIDGES LDOB: (64 yo F)Acc No.[id number]:07/29/2024 Progress Notes Patient: Brianne GUEVARA Love Provider: Lucy Stoner MD :1960 A ge:64 Y S ex:Female Date:07/29/2024 Address:[address] [place] [id number] Subjective: * Chief Complaints: * A nnual [...] arthroscopy Upper endoscopy and colonoscopy, 1 tubular adenoma,[facility], Dr. Luciano analgesic injections lumbar spine prior near [place] spine and sports Lumbar spine fusion 02/02/2023No history * Hospitalization/Major Diagno stic Procedure: N o history * Family History: F ather: 59 yrs, Lung cancer, diagnosed with Cancer, HTN. M other: alive 85 yrs, copd,chf,ckd,pad,dm2,, diagnosed with Hyperlipidemia, CVD, DM, HTN. C corinne: alive. S on(s): alive. D ruel(s): alive. S taran: , diagnosed with HTN. [...] grandson and well and healthy granddaughter. Her slate roofer is Dr. Torres at [facility]. Her last mammogram in August 2020 was [...] 2.1 (Ref Range: 1.6-2.6 mg/dL) * Lab:[facility] [place]. Pane l Fast * Collection Date 07/23/2024 [...] . BREASTS: N ot examined, Done by PHILOSOPHY LECTURER. ABDOMEN: b owel sounds normal, no ascites, no organomegaly, no mass. RECTAL EXAM: n ot examined, Done by PHILOSOPHY LECTURER. MUSCULOSKELETAL: e xtremities unremarkable, no clubbing, cyanosis [...] MD Date: 0 07/29/2024 Generated for Leylai jacques/Leonel/Dontasmitting on: 0 02/19/2025 09:48 AM EDT History and Physical Notes * HPI (History of Present Illness) Category Sub-Category Detail Notes Depression Screening PHQ-9 Little inte rest or pleasure in doing things: Not at all Feeling down, depressed, or hopeless: Se ver days Trouble falling or staying asleep, or [...] normal BREASTS: Not examined, Done b y PHILOSOPHY LECTURER MUSCULOSKELETAL: extremities unremark able, no clubbing, cyanosis or edema LYMPH NODES: no enlarged lymph no angélica,spleen normal RECTAL EXAM: not examined, Done b y PHILOSOPHY LECTURER PSYCH: alert, oriented ORAL CAVITY: normal, unremarkable
--- OUTSIDE RECORDS SUMMARY | 2025-01-27 06:00 | XMS_ITS ---
Author Organization Luis Stoner III, MD Address [address] [place] [address] [place] [address] Care Team Providers Care Physician Credentialing Specialist Name Role Phone Luis Stoner Primary Care Provider [phone] Allergies Allergen (clinical drug ingredient) Drug/Non Drug [...] Problem Status W/U Status Risk Notes Problem 96844476 Anxiety, generalized (F41.1) Active confirmed She was referred to mental health. If this worsens she will return to the office and we will discuss sertraline. Vital Signs Temperature 97.3 degrees Fahrenheit 01/28/20 25 Blood pressure systolic 139 mm Hg 01/28/20 Blood pressure diastolic 87 mm Hg 025 Heart Rate 80 /min 01/27/2025 Height 62 in 01/27/2025 Weight 132 lbs 01/27/2025 BMI 24.14 kg/m2 01/27/2025 Encounters Encounter Location Date Provider Diagnosis Luis Stoner III, MD [address] [place] [address] [address] [place], [place] [address] 01/27/2025 Luis Stoner Osteoporosis screeni ng Z13.820 [...] Up: 3 Months, Reason: OV Provider Name:Luis Stoner, 04/29/2025 10:00:00 AM, [address] [place] [address] [address], [place], [address], Provider Name:Luis Stoner, 07/31/2025 10:00:00 AM, [address] [place] [address] [address], [place], [address], Progress Notes * Brianne BRIDGES LDOB: (64 yo F)Acc No.[id number]:01/27/2025 Progress Notes Patient: Brianne GUEVARA Provider: Lucy Stoner MD :1960 A ge:64 Y S ex:Female Date:01/27/2025 Address:[address] [place] [id number] Subjective: * Chief Complaints: * A nxiety [...] arthroscopy Upper endoscopy and colonoscopy, 1 tubular adenoma,[facility], Dr. Luciano analgesic injections lumbar spine prior near [place] [facility] Lumbar spine fusion 02/02/2023No [...] grandson and well and healthy granddaughter. 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 Torres at [facility]. Her last mammogram in August 2020 [...] prn vertigo;?Continue Vitamin D3 Tablet, 50 MCG (2000 UT), [...] 0 01/27/2025 Generated for Nayla hanna/Leonel/Isaacitting on: 0 02/19/2025 [...]
--- OUTSIDE RECORDS SUMMARY | 2025-01-31 09:27 | XMS_ITS ---
Author Organization Luis Stoner III, MD Address [address] [place] [address] Care Team Providers Care Design Assembler Name Role Phone Luis Stoner Primary Care Provider [phone] REASON FOR VISIT New Bone Density Order Social History Sex Assigned At : Social History Observation Description Sex Assigned At Female Encounters Encounter Location Date Provider Diagnosis Luis Stoner III, MD [address] [place] [address] [place] [address] 01/31/2025 Luis Stoner Osteoporosis screeni ng Z13.820 [...] DEXA 01/31/2025 Next Appt Details Provider Name:Luis Stoner, 04/29/2025 10:00:00 AM, [address] [facility], [address], Provider Name:Luis Stoner, 07/31/2025 10:00:00 AM, [address] [place] [address] [place], [address], Progress Notes * Brianne BRIDGES LDOB: (64 yo F)Acc No.[id number]:01/31/2025 Patient: Brianne GUEVARA :1960 A ge:64 Y S ex:Female Address:[address] [place] [address] [place], [address] Subjective: * Chief Complaints: * N ew [...]
--- NOTE | ~2025-02-19 | MM_ITS ---
EXAMINATION: DXA BONE DENSITY AXIAL HISTORY: Z78.0 MENOPAUSAL STATE TECHNIQUE: Subitec Dual energy absorptiometry (DEXA) of the lumbar spine, total left hip, and femoral neck was performed. COMPARISON: There are no prior studies for comparison. FINDINGS: The bone mineral density of the lumbar spine is 0.941 g/cm2, corresponding to a T-score of -2.0, and a Z-score of -0.2. This is indicative of osteopenia. The bone mineral density of the left total hip is 0.896 g/cm2, corresponding to a T-score of -0.9, and a Z-score of 0.4. This is indicative of normal bone mineral density. The bone mineral density of the left femoral neck is 0.811 g/cm2, corresponding to a T-score of -1.6, and a Z-score of -0.1. This is indicative of osteopenia. FRACTURE RISK: The FRAX index suggests a risk of major osteoporotic fracture of 8.9%, and of hip fracture 1.1%. MM/XR DEXA axial skeleton IMPRESSION: Based on bone mineral density, and according to World Health Organization (WHO) criteria, the diagnosis is consistent with osteopenia. Statistically, 68% of repeat scans fall within 1 SD (+/- 0.010 g/cm2 for AP spine L1-L4) and 1 SD (+/- 0.012 g/cm2 for femur total) FRAX is a trademark of the [employer] [place] for Metabolic Bone Disease, a World Health Organization (WHO) Collaborating Center. Electronically signed by: Luis Alejandra MD 02/19/2025 09:15 AM EDT
--- OUTSIDE RECORDS SUMMARY | 2025-02-19 09:47 | XMS_ITS | Patient Health Record ---
Author Organization [facility] Address [address] [place] [address] Care Team Providers Care Client Service Executive Name Role Phone Luis Stoner MD Primary Care Provider Unavailab Luis Avendano Unavailable [phone] Allergies Allergen (clinical drug ingredient) Drug/Non Drug [...] Problem Status W/U Status Risk Notes Problem [id number] Encounter for screening for malignant neoplasm of colon (Z12.11) Active confirmed Problem 386726803 History of adenomatous polyp of colon (Z86.010) Active confirmed Problem History of polyp of colon (situation) (388209006) Personal history of colonic polyps (Z86.010) Active confirmed Problem Screening for malignant neoplasm of rectum (574857761) Encounter for screening for malignant neoplasm of rectum (Z12.12) Active confirmed Problem 98856596 Abdominal pain, epigastric (R10.13) Active confirmed Problem Preprocedural examination (095081680735329) Preprocedural examination (Z01.818) Active confirmed Problem Diverticulosis of sigmoid colon (280904016) Diverticulosis of sigmoid colon (K57.30) Active confirmed Plan Of Treatment Pending Test Test Name Order Date US ABD 02/27/2013 Future Test Test Name Order Date COLONOSCOPY 06/15/2016 COLONOSCOPY 03/01/2022 Insurance Providers Payer Name Payer Address Payer Phone Subscriber Number Group Number Insured Name Patient Relationship to Insured Coverage Start Date Coverage End Date [facility] [address] [place] [address] [id number] LYNDA LEO Self - patient is the insured Medical (General) History Medical History History ICD Code Denies MD,DM,CVA,Lung disease,renal dise ase Screening colonoscopy--Tubular adenoma r [...]
--- OUTSIDE RECORDS SUMMARY | 2025-02-19 09:48 | XMS_ITS ---
Author Name [facility] Organization Unknown Care Team Organization Name Specialty Phone Email Start Date End Da te [facility] Termed, PROVIDER Primary Care 04/12/202201/03
--- OUTSIDE RECORDS SUMMARY | 2025-02-19 09:48 | XMS_ITS | Patient Health Record ---
Author Organization Luis Stoner III, MD Address [address] [place] [address] Care Team Providers Care Chief Counsel Name Role Phone Luis Stoner Primary Care Provider [phone] Allergies Allergen (clinical drug ingredient) Drug/Non Drug Allergy documented on EMR Reaction Allergy Type Onset Date Status No Known Drug Allergy Unknown Drug Allergy Active Results Component Value Reference Range Notes Complete Blood Count Auto Di ff Reviewed date:07/24/2024 03:46:22 PM Interpretation: Performing Lab:[facility], [address] [place] [phone] Notes/Report: White Blood Count 6.4 4.8-10.8 X10*3/uL Red Blood Count 3.81 4.20-5.50 X10*6/uL Hemoglobin 12.6 12.0-16.0 g/dl Hematocrit 37.3 37.0-47.0 % Mean Corpuscular Volume 97.9 80.0-98.0 fL Mean Corpuscular Hemoglobin 33.1 27.0-33.0 pg Mean Corpuscular HGB Conc 33.8 31.0-35.0 g/dl Red Cell Distribution Width 12.0 11.0-16.0 % Platelet Count 188 160-400 X10*3/uL Mean Platelet Volume 8.7 9.4-12.3 fL Neutrophils Percent Auto 51.0 45-73 % Imm Gran Pct Auto 0.3 0.0-0.4 % Lymphocytes Percent Auto 36.3 20-40 % Monocytes Percent Auto 8.8 2-11 % Eosinophils Percent Auto 3.0 0-4 % Basophils Percent Auto 0.6 0-2 % NRBC Pct Auto 0.0 0.0-0.2 /100WBC Neutrophils Absolute Auto 3.3 2.0-8.3 x10*3/uL Imm Gran Abs Auto 0.02 0.00-0.03 X10*3/uL Lymphocytes Absolute Auto 2.3 1.2-4.9 X10*3/uL Monocytes Absolute Auto 0.6 0.1-1.2 X10*3/uL Eosinophils Absolute Auto 0.2 0.0-0.4 X10*3/uL Basophils Absolute Auto 0.0 0.0-0.2 X10*3/uL NRBC Abs Auto 0.000 0.0-0.012 X10*3/uL Comprehensive [place]. Panel Fa st Reviewed date:07/24/2024 03:46:22 PM Interpretation: Performing Lab:[facility], [address] [place] [phone] Notes/Report: Sodium 142 135-145 mmol/L Potassium 3.8 3.3-5.1 mmol/L Chloride 106 96-108 mmol/L Carbon Dioxide 28 22-29 mmol/L Anion Gap 12 12-20 Blood Urea Nitrogen 16 9-16 mg/dL Creatinine 0.77 0.5-1.4 mg/dL Estimated Glomerular Filt Rate > 60 Chronic Kidney Disease: Estimated GFR < 60 mL/min/1.73m2 Severe Kidney Disease: Estimated GFR < 15 mL/min/1.73m2 Glucose Fasting 94 60-99 mg/dL Calcium 9.0 8.4-10.2 mg/dL Bilirubin Total 0.3 0.0-1.0 mg/dL Aspartate Amino Transferase 21 5-31 U/L Alanine Aminotransferase 15 0-31 U/L Total Protein 7.2 6.5-8.0 g/dL Albumin Level 4.2 3.5-5.0 g/dL Alkaline Phosphatase 67 39-117 U/L Magnesium Reviewed date:07/24/2024 03:46:22 PM Interpretation: Performing Lab:[facility], [address] [place] [phone] Notes/Report: Magnesium 2.1 1.6-2.6 mg/dL Lipid Panel Reviewed date:07/24/2024 03:46:22 PM Interpretation: Performing Lab:[facility], [address] [place] [phone] Notes/Report: Triglycerides 69 <150 mg/dL Desirable Triglyceride: less than 150 mg/dL Borderline High Triglyceride 150-199 mg/dL High Triglyceride: 200-499 mg/dL Very High Triglyceride: greater than or equal to 5OO mg/dL Cholesterol 192 <200 mg/dL Desirable Cholesterol: less than 200 mg/dL Borderline High Cholesterol: 200-239 mg/dL High Cholesterol: greater than 239 mg/dL LDL Cholesterol Calculated 119 <100 mg/dL Desirable LDL: less than 100 mg/dL Near Optimal/Above Optimal LDL: 110-129 mg/dL Borderline High LDL: 130-159 mg/dL High LDL: 160-189 mg/dL Very High LDL: greater than or equal to 190 mg/dL HDL Cholesterol 60 >40 mg/dL Desirable HDL: greater than 40 mg/dL Note: This HDL assay may give artificially low results in patients with liver disease. Vitamin D 25-OH Total Reviewed date:07/24/2024 03:46:22 PM Interpretation: Performing Lab:[facility], [address] [place] [phone] Notes/Report: Vitamin D 25-OH Total 59.3 >30 ng/mL Health Based Reference Values* < 20 ng/mL Deficient 20-30 ng/mL Insufficient > 30 ng/mL Sufficient *Sheyla HERNANDEZ. N Engl J Med. 2007;357:266-280 Care must be taken in interpreting Vitamin D results from different laboratories and methodologies. Published data demonstrated that results from patients undergoing hemodialysis may show a negative bias when tested with various automated 25-OH vitamin D assays when compared to LC-MS/MS. When testing samples from patients whose predominant form of Vitamin D is Vitamin D2, such as patients receiving Vitamin D2 supplementation, results that are subtherapeutic should be confirmed with another method such as LC-MS/MS. URINE DIP STICK Reviewed date:07/29/2024 02:28:36 PM Interpretation: Performing Lab: Notes/Report: SG 1.005 1.005 - 1.025 pH 6.0 5.0 - 9.0 CHER Negative Negative - NIT Negative Negative - PRO Negative Negative - Trace GLU Negative Negative - KET Negative Negative - UBG 0.2 0.1 - 1.8 ORION Negative 0.2 - 1.3 BLD 50 Negative - HPV High risk (Not yet revie wed by provider) Interpretation: Performing Lab:[facility], [address] [place] [phone] Notes/Report: HPV High Risk Negative Negative HPV Genotype 16 Negative Negative HPV Genotype 18 Negative Negative HPV testing performed at [facility] (CLIA #[id number]), [address] [place] [address]. Testing for HPV was performed using the [employer] Munchkin0 system. The presence of HPV in the female genital tract is associated with a number of diseases, including cervical carcinoma. The HPV DNA high risk pool tests for HPV 31, 33, 35, 39, 45, 51, 52, 56, 58, 59, 66 and 68. The testing for HPV 16 and 18 genotypes has also been performed. A positive result indicates detection of nucleic acid sequences from one or more subtypes, whereas a negative result indicates such sequences were not detected. Pap Smear Reviewed date:11/10/2024 09:34:15 AM Interpretation: Performing Lab:[facility], [address] [place] [phone] Notes/Report: --- Name: YulianaBrianne L Age/Sex: 64/F [facility] 1960 [id number]#: [id number] Attend Dr: Thuy Schumacher CNM Re10/29/24 Status : DEP [facility] Location: [facility] Disch: --- SPEC : [id number] RECD : 10/29/240 STATUS: REBECCA ANDERSON NUM: [id number] [place]: 10/29/24-[address] [facility] [address]: Thuy Schumacher [facility] ENTERED: 10/29/24-13 49 SP TYPE: Pap Smr OTHR DR: Luis Stoner MD ORDERED: Pap Smear Interpretation Satisfactory for evaluation. Negative for intraepithelial lesion or malignancy. Atrophic. HPV High Risk: Negative HPV Genotyping 16: Negative HPV Genotyping 18: Negative Clinical Information LMP: Menopausal Previous PAP test: 07/05/2019 Other history: Encounter for well woman exam with routine gynecological exam Material Received ThinPrep-Cervical PAP Disclaimer As of March 27, the technical services to include automated prescreening performed by the ThinPrep Imag ing System, PAP screening and HPV testing will be performed at [facility] (CLIA #[id number]), [address] [place] [address]. Testing for H PV was performed using the [employer] Munchkin0 system. The presence of HPV in the female genital tract is associated with a number of diseases, including cervical carcinoma. The HPV D NA high risk pool tests for HPV 31, 33, 35, 39, 45, 51, 52, 56, 58, 59, 66 and 68. The testi ng for HPV 16 and 18 genotypes has also been performed. A positive result indicates detection of nucleic acid sequences from one or more subtypes, whereas a negative result indicates such sequences were not detected. All professional services are performed by [facility] ([address] [place] [address]; P h: [phone]; CLIA #[id number]). The PAP Test is a screening procedure with the inherent possibility of both false negative and false positive results. Results should be interpreted in the context of historic and current clinical findings. Reliability of the PAP Test is enhanced by performing the test on a regular repetit kaiser basis. CONTINUED ON NEXT PAGE --- Name: Brianne Bridges Age/Sex: 64/F : 1960 Unit#: [id number] Attend Dr: Thuy Schumacher [facility] Re10/29/24 Status : DEP REF Location: [facility] Disch: --- SPEC : [id number] REC STATUS: REBECCA ANDERSON NUM: [id number] [place]: 10/29/[address] [facility] [address]: Thuy Schumacher [facility] ENTERED: 10/29/24- 49 SP TYPE: Pap Smr OTHR DR: Luis Stoner MD ORDERED: Pap Smear Copies To: Luis Stoner MD [address] [facility], [address] [place] [address] [facility] [address] [facility] [place] it[place] [address] [place] [address] --- Signed (signature on file) RONAK Sánchez ([facility]) 11/01/24 1026 --- END OF REPORT MM tomosynthesis screening B I Reviewed date:11/10/2024 09:34:15 AM Interpretation: Performing Lab: Notes/Report: [place] [facility] [address] [place] [address] Mammography Report Signed Patient: Brianne Bridges MR#: [id number] : 1960 Acct:[id number] Age/Sex: 64 / F ADM Date: 11/02/24 Loc: .MAMMO Attending Dr: Luis Stoner MD Ordering Physician: Luis Stoner MD Results: 1Negativ e Date of Service: 11/02/24 Follow Up: 1 Year From Orig [facility] Mammogram Procedure(s): MM tomosynthesis screening BI Accession Number(s): [id number] cc: Luis Stoner MD EXAMINATION: MM SCREENING DIGITAL BREAST TOMOSYNTHESIS, BILATERAL CLINICAL INFORMATION: Screening. Asymptomatic. COMPARISON: Mammography: Comparison is made with available priors TECHNIQUE: Digital breast mammography with tomosynthesis is performed in both the craniocaudal and mediolateral oblique views along with computer-aided detection (CAD). FINDINGS: The breasts are heterogeneously dense, which [...] target due date for their next mammogram. Electronically signed by: Dionne Moser DO 11/09/2024 04:37 PM EDT Dictated By: Dionne Moser DO Signed By: <Electronically signed by Dionne Moser DO in OV> 11/09/24 1637 DD/ 9 TD/TT: 11/02/24919 Armored Service Technician: [facility] [address] [place] [address] [place] [address] Mammography Report Signed Patient: Brianne Bridges MR#: [id number] : 1960 Acct:[id number] Age/Sex: 64 / F ADM Date: 11/02/24 Loc: HO.MAMMO Attending Dr: Luis Stoner MD Ordering Physician: Luis Stoner MD Results: 1Negativ e Date of Service: 11/02/24 Follow Up: 1 Year From Orig inal Mammogram Procedure(s): MM tomosynthesis screening BI Accession Number(s): [id number] cc: Luis Stoner MD EXAMINATION: MM SCREENING DIGITAL BREAST TOMOSYNTHESIS, BILATERAL CLINICAL INFORMATION: Screening. Asymptomatic. COMPARISON: Mammography: Compari son is made with available priors TECHNIQUE: Digital breast mammography with tomosynthesis is performed in both the craniocaudal and mediolateral oblique views along with computer-aided detection (CAD). FINDINGS: The breasts are heterogeneously dense, which [...] target due date for their next mammogram. Electronically sim d by: Dionne Moser DO 11/09/2024 04:37 PM EDT Dictated By: Dionne Moser DO Signed By: <Electronically signed by Dionne Moser DO in OV> 11/09/24 1637 DD/ 9 TD/TT: 11/02/24919 Armored Service Technician: XR DEXA axial skeleton (Not yet reviewed by provider) Interpretation: Performing Lab: Notes/Report: [place] [facility] [address] [place] [address] Mammography Report Signed Patient: Brianne Bridges MR#: [id number] : 1960 Acct:[id number] Age/Sex: 64 / F ADM Date: 02/19/25 Loc: HO.MAMMO Attending Dr: Luis Stoner MD Ordering Physician: Luis Stoner MD Results: Date of Service: 02/19/25 Follow Up: Procedure(s): XR DEXA axial skeleton Accession Number(s): [id number] cc: Luis Stoner MD Reason For Exam: Z78.0 MENOPAUSAL STATE EXAMINATION: DXA BONE DENSITY AXIAL HISTORY: Z78.0 MENOPAUSAL STATE TECHNIQUE: LifeNexus Dual energy absorptiometry (DEXA) of the lumbar spine, total left hip, and femoral neck was performed. COMPARISON: There are no prior studies for comparison. FINDINGS: The bone mineral density of the lumbar spine is 0.941 g/cm2, corresponding to a T-score of -2.0, and a Z-score of -0.2. This is indicative of osteopenia. The bone mineral density of the left total hip is 0.896 g/cm2, corresponding to a T-score of -0.9, and a Z-score of 0.4. This is indicative of normal bone mineral density. The bone mineral density of the left femoral neck is 0.811 g/cm2, corresponding to a T-score of -1.6, and a Z-score of -0.1. This is indicative of osteopenia. FRACTURE RISK: The FRAX index suggests a risk of major osteoporotic fracture of 8.9%, and of hip fracture 1.1%. MM/XR DEXA axial skeleton IMPRESSION: Based on bone mineral density, and according to World Health Organization (WHO) criteria, the diagnosis is consistent with osteopenia. Statistically, 68% of repeat scans fall within 1 SD (+/- 0.010 g/cm2 for AP spine L1-L4) and 1 SD (+/- 0.012 g/cm2 for femur total) FRAX is a trademark of the [employer] [place] for Metabolic Bone Disease, a World Health Organization (WHO) Collaborating Center. Electronically signed by: Luis Alejandra MD 02/19/2025 09:15 AM EDT RP Dictated By: Luis Alejandra MD Signed By: <Electronically signed by Luis Alejandra MD in OV> 02/19/25914 DD/ 3 TD/TT: 02/19/25899 Armored Service Technician: [place] [facility] [address] [place] [address] Mammography Report Signed Patient: Brianne Bridges MR#: [id number] : 1960 Acct:[id number] Age/Sex: 64 / F ADM Date: 02/19/25 Loc: HO.MAMMO Attending Dr: Luis Stoner MD Ordering Physician: Luis Stoner MD Results: Date of Service: 02/19/25 Follow Up: Procedure(s): XR DEX A axial skeleton Accession Number(s): [id number] cc: Luis Stoner MD Reason For Exam: Z78 .0 MENOPAUSAL STATE EXAMINATION: DXA BON E DENSITY AXIAL HISTORY: Z78.0 MENOPAUSAL STATE TECHNIQUE: LifeNexus Dual energy absorptiometry (DEXA) of the lumbar spine, total left hip, and femoral neck was performed. COMPARISON: There ar e no prior studies for comparison. FINDINGS: The bone mineral density of the lumbar spine is 0.941 g/cm2, corresponding to a T-score of -2.0, and a Z-score of -0.2. This is indicative of osteopenia. The bone mineral density of the left total hip is 0.896 g/cm2, corresponding to a T-score of -0.9, and a Z-score of 0.4. This is indicative of normal bone mineral density. The bone mineral density of the left femoral neck is 0.811 g/cm2, corresponding to a T-score of -1.6, and a Z-score of -0.1. This is indicative of osteopenia. FRACTURE RISK: The FRAX index sugge sts a risk of major osteoporotic fracture of 8.9%, and of hip fracture 1.1%. ___ MM/XR DEXA axial skeleton IMPRESSION: Based on bone minera l density, and according to World Health Organization (WHO) criteria, the diagnosis is consistent with osteopenia. Statistically, 68% o f repeat scans fall within 1 SD (+/- 0.010 g/cm2 for AP spine L1-L4) and 1 SD (+/- 0.012 g/cm2 for femur total) FRAX is a trademark of the [employer] [place] for Metabolic Bone Disease, a World Health Organization (WHO) Collaborating Center. Electronically sim d by: Luis Alejandra MD 02/19/2025 09:15 AM EDT RP Dictated By: Luis Alejandra MD Signed By: <Electronically signed by Luis Alejandra MD in OV> 02/19/25914 DD/ 3 TD/TT: 02/19/25899 Armored Service Technician: Reason For Referral No Information Medications Medication [...] morning meal Orally Once a day Active Immunizations Vaccine Route Administration Date Status [...] p-free high dose Unknown 03/23/2023 Admi nistered Comirnaty Pfizer COVID-19 12+ Unknown 04/13/2023 Admini stered Flu-IIv4pf Unknown 01/15/2019 Administered Flu-ccIIv3, p-free Unknown 02/19/2024 Administered Flu-IIv4pf Unknown 01/22/2017 Administered Influenza no Preserv 3 and > Unknown 02/21/2012 Adminis tered Influenza no Preserv 3 and > Unknown 03/10/2011 Adminis tered Influenza no Preserv 3 and > Unknown 02/14/2013 Adminis tered Influenza no Preserv 3 and > Unknown 02/03/2014 Adminis tered Flu-IIv4pf Unknown 02/11/2018 Administered SHINGRIX Unknown 06/07/2024 Administered Flu-IIv4pf Unknown 01/25/2020 Administered Comirnaty Pfizer COVID-19 12+ Unknown 02/19/2024 Admini stered SHINGRIX Unknown 01/27/2024 Administered COVID Pfizer Bivalent Unknown 03/05/2022 Administered Social History Tobacco Use: Social History Observation [...] Never (0 point) Points 3 Interpretation Positive Problems Problem Type SNOMED Code ICD Code Onset Dates Problem Status W/U Status Risk Notes Problem 6344185 Former smoker (Z87.891) Active confirmed We have formulated a plan to prevent relapse in times of stress or illness. Problem 254357413 Lumbar radiculopathy (M54.16) Active confirmed Her back pain is currently stable and improving slowly. The fusion is healing. The pain is much improved Problem Gastroesophageal reflux disease (639523250) GERD (gastroesophageal reflux disease) (K21.9) Active confirmed She attributes her symptoms of reflux to dysfunction of the sphincter of Oddi. The discomfort is well controlled on current medication. Problem Vitamin D deficiency (32309985) Vitamin D deficiency (E55.9) Active confirmed Vitamin D supplements. Problem 448938052651279 Spondylolisthesi s of lumbar region (M43.16) Active confirmed She is being seen by physiatry to stand having injections in the lumbar spine. Problem hypercholesterolemi a (disorder) (44797334) Hypercholesteremi a (E78.00) Active confirmed Her total cholesterol is within her target range. Her weight is stable and in the normal range. We have discussed her diet and nutrition today. Problem 802092643 Adenomatous poly p (D36.9) Active confirmed She will undergo colonoscopy at five-year intervals. 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 She will continue on current therapy for her low back pain Problem 32763472 Anxiety, generalized (F41.1) Active confirmed She was referred to mental health. If this worsens she will return to the office and we will discuss sertraline. Vital Signs Heart Rate 80 /min 01/27/2025 Temperature 97.3 degrees Fahrenheit 01/27/2025 Blood pressure diastolic 87 mm Hg 01/27/2025 Height 62 in 01/27/2025 Blood pressure systolic 139 mm Hg 01/27/2025 Weight 132 lbs 01/27/2025 BMI 24.14 kg/m2 01/27/2025 Encounters Encounter Location Date Provider Diagnosis Luis Stoner III, MD [address] [place] [address] [place] [phone] 02/26/2024 Luis Stoner Vitamin D deficiency E55.9 ; Hypercholesteremia E78.00 ; GERD (gastroesophageal reflux disease) K21.9 and Lumbar radiculopathy M54.16 Luis Stoner III, MD [address] [place] [address] [place] [address] 07/29/2024 Luis Stoner Vitamin D deficiency E55.9 ; Hypercholesteremia E78.00 ; GERD (gastroesophageal reflux disease) K21.9 ; Spondylolisthesis of lumbar region M43.16 ; Lumbar radiculopathy M54.16 and Former smoker Z87.891 Luis Stoner III, MD [address] [place] [address] [place] [address] 01/27/2025 Luis Stoner Osteoporosis screeni ng Z13.820 ; Anxiety, generalized F41.1 ; Former smoker Z87.891 ; Vitamin D deficiency E55.9 ; Hypercholesteremia E78.00 ; Lumbar radiculopathy M54.16 and Pars defect M43.00 Luis Stoner III, MD [address] [place] [address] [place] [address] 04/12/2024 Luis Stoner III, MD [address] [place] [address] [place] [address] 01/31/2025 Luis Stoner Osteoporosis screeni ng Z13.820 [...] discussed her diet and nutrition today. 07/29/2024 Vitamin D deficiency (ICD-10 - E55.9) Vitamin D supplements. 07/29/2024 Hypercholesteremia (ICD-10 - E78.00) Her total cholesterol is within her target range. Her weight is stable and in the normal range. We have discussed her diet and nutrition today. 01/27/2025 Osteoporosis screeni ng (ICD-10 - Z13.820) She is due for a bone density test which was scheduled. 01/27/2025 Anxiety, generalized (ICD-10 - F41.1) She was referred to mental health. If this worsens she will return to the office and we will discuss sertraline. 01/31/2025 Osteoporosis screeni ng (ICD-10 - Z13.820) 02/26/2024 GERD (gastroesophage al reflux disease) (ICD-10 - K21.9) She attributes her symptoms of reflux to dysfunction of the sphincter of Oddi. The discomfort is well controlled on current medication. 07/29/2024 GERD (gastroesophage al reflux disease) (ICD-10 - K21.9) She attributes her symptoms of reflux to dysfunction of the sphincter of Oddi. The discomfort is well controlled on current medication. 01/27/2025 Former smoker (ICD-1 0 - Z87.891) We have formulated a plan to prevent relapse in times of stress or illness. 01/31/2025 Vitamin D deficiency (ICD-10 - E55.9) 02/26/2024 Lumbar radiculopathy (ICD-10 - M54.16) Her back pain is currently stable and improving slowly. The fusion is healing. The pain is much improved 07/29/2024 Spondylolisthesis of lumbar region (ICD-10 - M43.16) She is being seen by physiatry to stand having injections in the lumbar spine. 01/27/2025 Vitamin D deficiency (ICD-10 - E55.9) Vitamin D supplements. 01/31/2025 Post menopausal synd reggie (ICD-10 - Z78.0) 07/29/2024 Lumbar radiculopathy (ICD-10 - M54.16) Her back pain is currently stable and improving slowly. The fusion is healing. The pain is much improved 01/27/2025 Hypercholesteremia (ICD-10 - E78.00) Her total cholesterol is within her target range. Her weight is stable and in the normal range. We have discussed her diet and nutrition today. 07/29/2024 Former smoker (ICD-1 0 - Z87.891) We have formulated a plan to prevent relapse in times of stress or illness. 01/27/2025 Lumbar radiculopathy (ICD-10 - M54.16) Her [...] C) 04/20/2023 PROFILE, FASTING (COMPREHENSIVE METABOLI C) 01/17/2023 PROFILE, FASTING (COMPREHENSIVE METABOLI C) 07/15/2022 PROFILE, FASTING (COMPREHENSIVE METABOLI C) 02/26/2024 MAGNESIUM 07/15/2022 MAGNESIUM 02/26/2024 LIPID PANEL 07/15/2022 LIPID PANEL 01/17/2023 CBC w DIFF 01/17/2023 CBC w DIFF 07/15/2022 CBC w DIFF 07/07/2021 BONE DENSITY DEXA 01/31/2025 BONE DENSITY DEXA 01/27/2025 VITAMIN D 25-OH TOTAL 01/17/2023 VITAMIN D 25-OH TOTAL 07/15/2022 CBC WITH AUTO DIFF 02/26/2024 CBC WITH AUTO DIFF 04/20/2023 Lipid Panel 02/26/2024 Lipid Panel 04/20/2023 Vitamin D 25-OH Total 04/20/2023 Vitamin D 25-OH Total 02/26/2024 XR DEXA axial skeleton 02/19/2025 XR lumbar spine 2-3V 08/15/2023 XR sacrum coccyx min 2V 08/15/2023 US pelvic and transvaginal 01/24/2023 HPV High risk 10/29/2024 Next Appt Details Provider Name:Luis Stoner, 04/29/2025 10:00:00 AM, [address] [place] [address] [address], [place], [address], Provider Name:Luis Stoner, 07/31/2025 10:00:00 AM, [address] [place] [address] [address], [place], [address], Insurance Providers Payer Name Payer Address Payer Phone Subscriber Number Group Number Insured Name Patient Relationship to Insured Coverage Start Date Coverage End Date [address] [place] [phone] [id number] Brianne Bridges Self - patient is the insured Medical (General) History Medical History History ICD Code Vitamin D deficiency E55.9 GERD (gastroesophageal reflux disease) K 21.9 L5-S1 radiculopathy Hyperlipidemia Former smoker 1990 Tubular adenoma 2010 Gastritis 2011 Internal hemorrhoids 2011 DJD right knee L5-S1 pars defect Spondylolisthesis lumbar spine Dysfunction of the sphincter of Oddi Surgical History Surgery Date(Month/Year) No history Lumbar spine fusion 02/02/20232019 analgesic injections elisha mbar spine prior near [place] [facility] Upper endoscopy and colonoscopy, 1 tubul ar adenoma,[facility], Dr. Luciano 2010 Right knee arthroscopy Cholecystectomy x 2 [place] teeth extractions Hospitalization History Reason Date(Month/Year) No history
--- OUTSIDE RECORDS SUMMARY | 2025-02-19 09:48 | XMS_ITS | Clinical Summary ---
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 Active omeprazole (PriLOSEC) [address] capsule Take 1 capsule (20 mg total) by mouth 1 (one) time each day. Active ibuprofen (ADVIL,MOTRIN) 200 mg tablet Take by mouth every 6 (six) hours if needed. Active acetaminophen (TYLENOL) 500 mg tablet Take by mouth every 6 (six) hours if needed for mild pain. Active naproxen (NAPROSYN) 250 mg tablet Take 1 tablet (250 mg total) by mouth 2 (two) times a day with meals. Active lidocaine (LIDODERM) 5 % patchIndication s:Spondylolisth esis of lumbar region Apply 1 patch topically 1 (one) time each day. Remove & discard patch within 12 hours or as directed by . 30 each 1 03/08/20 25 Active Active Problems Problem Noted Date Diagnosed Date Mid back pain, chronic 10/15/2024 Assessment & Plan (10/15/2024 2:30 PM EDT): Ms. Cordero's describes chronic mid back pain without radiation to the legs. It starts about T5 or T6 and continues caudally from there. She also has low back pain that did not get better with her lumbar fusion surgery. She has been through physical therapy, acupuncture, and uses lidocaine patches. I think it is time to get her referral to physiatry. She would like to see Dr. Rojas. We will obtain some x- rays of the thoracic spine prior to the referral. Discussed with Dr. Manjarrez. Spondylolisthesis of lumbar region 10/28/2022 Overview (10/14/2024): Last Assessment & Plan: Ms. Bridges is here for a 1 year follow-up since an L5-S1 PLIF for pars fractures and spondylolisthesis on 02/02/2023. She states that her low thoracic pain improved after surgery then gradually returned. She feels that her lower back pain has persisted all this time though there are occasional periods when it is a little better. Unfortunately, she has been continued daily symptoms that require her to alternate between Tylenol, Aleve and Motrin with the addition of lidocaine patches. She went to physical therapy in the initial postop period for about 6 weeks which felt a little bit better then she had increased pain continuing to do the exercises at home so backed off from that. At about 6 months postop, she went to see a holistic chiropractor who started massage, use of a TENS unit and stretches though with no long-term improvement. She has pulled a muscle probably gluteus and has had fluctuating symptoms from that. She was advised on exercise routine and using a rolling ball but this then aggravated the symptoms. She more recently went to 8 sessions of physical therapy beginning in November but still suffers from pain. On exam, she prefers standing to sitting. Seated SLR is negative, strength 5/5, sensation light touch intact. I reviewed the lumbar spine CT at [facility] today which shows bridging bone through both interbody grafts at L5-S1 and along the posterolateral gutter under the rods. There are no new degenerative changes. Though she may continue to lay down more bone, her current situation is adequate to stabilize this level. She still reports pain a lot of which is probably muscular but she is not making progress. I recommended aquatic therapy and swimming then once her core stronger, she may resume the home PT exercises. She is welcome to contact us at any time. Assessment & Plan (10/15/2024 11:05 AM EDT): Ms. Link is about 21 months status post resection of L5 Mckeon fragment with L5-S1 posterior lumbar interbody fusion and pedicle screw fixation. She was asked seen at the 1 year anniversary of her surgery and reported that she really had not had any improvement. She is since finished another round of physical therapy, been to acupuncture, sees a holistic chiropractor, uses lidocaine patches as well as acetaminophen and NSAIDs daily. He denies any radiation of pain or numbness in the lower extremities. She is generally depressed and struggling with the fact that she is just not any better. I am going to get some new x-rays of the thoracic and lumbar spine. If those look okay, we will refer her to physiatry. Discussed with Dr. Manjarrez. Asymptomatic microscopic hematuria 10/21/2020 Vitamin D insufficiency 01/16/2019 Spinal stenosis, lumbar 07/02/2018 Overview (10/14/2024): 11/2017 MRI bilateral Encounters Date Type Department Care Team Description 01/07/2025 Telephone Neurosurgery [address] [phone] Jyoti Love MA 12/09/2024 9:44 AM EDT - 12/09/2024 11:59 PM EDT Hospital Encounter [facility] MRI [address] [place] [address] Radiculopathy, lumbar region Discharge Disposition: Home or Self Care 11/19/2024 Telephone Neurosurgery [address] [address] Jyoti Love MA from Last 3 Months Immunizations Name Administration Dates Next Due Influenza trivalent, 0.5mL, preservative free (Fluarix; FluLaval; Fluzone) ages 6mo and older (Afluria) 3 years and older 01/15/2019,02/11/2018,01/22/2017,2014,02/03/2014,02/14/2013,02/21/2012,1 RSV, bivalent, protein subun it RSVpreF, 0.5mL, Preservative Free (Arexvy) 60yo and older 05/20/2023 Tdap Tetanus diptheria acell ular pertussis (Boostrix; Adacel) 7yo and older 03/26/2018,03/05/2015,02/03/2014 Zoster recombinant (Shingrix ) 19yo and older 06/07/2024,01/27/2024 Surgical History Surgery Date Site/Laterality Comments TONSILLECTOMY ADENOIDECTOMY, BILATERAL MYRINGOTOMY AND TUBES PROCEDURE: [place] TONSILLECTOMY & ADENOIDECTOMY <AGE 12 CHOLECYSTECTOMY PROCEDURE: HISTORICAL CHOLECYSTECTOMY WISDOM TOOTH EXTRACTION PROCEDURE: HISTORICAL WISDOM TEETH EXTRACTION SECTION PROCEDURE: HISTORICAL DELIVERY; COMMENT: x2 KNEE ARTHROSCOPY Right PROCEDURE: KS ARTHROSCOPY AID TX SPINE&/FX KNEE W/O FIXJ COLONOSCOPY 11/07/2016 PROCEDURE: HISTORICAL COLONOSCOPY; COMMENT: sigmoid diverticulosis, internal hemorrhoids; repeat in 5 yrs; no report COLONOSCOPY 02/21/2011 PROCEDURE: HISTORICAL COLONOSCOPY; COMMENT: tubular adenoma-removed; no report (only path report) UPPER GASTROINTESTINAL ENDOSCOPY 02/22/2010 PROCEDURE: KS UPPER GI ENDOSCOPY PERFORMED; COMMENT: mild gastritis, [...] Smoking Tobacco: Former Cigarettes Smokeless Tobacco: Never Tobacco Cessation:Counseling Given: Not Answered Alcohol Use Standard Drinks/Week Comments Yes 0 [...] EDT Height 157.5 cm (5' 2 ) 10/15/2024 10:04 AM EDT Body Mass Index 23.1 02/14/2023 11:18 AM EDT Plan of Treatment Health Maintenance Due Date Last Done Comments Breast Cancer Screening 1960 Cervical Cancer Screening: HPV 1981 Pneumococcal Vaccine: 50+ Years (1 of 1 - PCV) 2010 Cholesterol Screening (Lipid Panel) 05/04/2022 Colorectal Cancer Screening: Colonoscopy 05/04/2022 HIV Screening 05/04/2022 Hepatitis C Screening 05/04/2022 Social Influencers of Health Screening 05/04/2022 Depression Screening 06/05/2024 Influenza Vaccine (#1) 2025 9, 02/11/2018, 01/22/2017, Additional history exists DTaP,Tdap,and Td Vaccines (4 - Td or Tdap) 03/26/2028 03/26/2018, 03/05/2015, 02/03/2014 RSV Immunization Adult Patients Completed 05/20/2023 COVID-19 Vaccine Completed 02/19/2024, 02/2023, 03/05/2022, Additional history exists Zoster Vaccines Completed 06/07/2024, 01/27/2024 HIB Vaccines Aged Out No longer eligi [...] age to complete this topic Meningococcal B Vaccine Aged Out No l onger eligible based on patient's age to complete this topic RSV Immunization Patients Under 20 months Aged Out No longer eligible based on patient's age to complete this topic Varicella Vaccines Aged Out No longer eligible based on patient's age to complete this topic Procedures Procedure Name Priority Date/Time Associated Diagnosis Comments MR LUMBAR SPINE WO AND W CONTRAST Routine 12/09/2024 11:06 AM EDT Radiculopathy, lumbar region from Last 3 Months Results * MR Lumbar Spine wo and w Contrast (12/09/2024 11:06 AM EDT) Anatomical Region Laterality Modality L-spine, Spine Magnetic Resonan ce 12/09/2024 12:2 4 PM EDT Impressions 12/09/2024 1:09 PM EDT Posterior fusion and decompression at L5-S1, where there is grade 1 retrolisthesis. Degenerative changes as detailed above. -------- FINAL REPORT -------- Dictated By: Karl Robert Dictated Date: 12/09/2024 12:24 ET Assigned Physician: Karl Robert Reviewed and Electronically Signed By: Karl Robert Signed Date: 12/09/2024 13:09 ET Workstation ID: [id number] Transcribed By: Self Edit Transcribed Date: 12/09/2024 12:26 ET Narrative 12/09/2024 1:09 PM EDT PROCEDURE: MRI of the lumbar spine with intravenous contrast. HISTORY: radiculopathy, spinal stenosis, post laminectomy syndrome. TECHNIQUE: Sagittal and axial multisequence MRI of the lumbar spine with and without intravenous contrast administration. IV contrast dose: 12 mL intravenous Dotarem from a 15 mL vial with 3 mL discarded. COMPARISON: Radiographs dated 10/16/2024. FINDINGS: Postsurgical scarring in the lower midline soft tissues. No other paraspinous soft tissue findings. Posterior ammy and pedicle screw fusion and an interbody cage device with posterior decompression at L5-S1. There is 7 mm of anterolisthesis at this level. Alignment is otherwise maintained. No marrow infiltrative lesion. Normal position of the conus at T12-L1. No abnormal enhancement of the conus or nerve roots of the cauda equina. Lumbar disc levels: L1-2: Only imaged in sagittal plane. Minimal endplate irregularity. Minimal anterior endplate osteophytes. No spinal or foraminal stenosis. L2-3: Minimal endplate irregularity. Minimal anterior endplate osteophytes. Minimal disc bulge eccentric to the left. Slight widening of the left facet joint suggesting mild hypermobility. No spinal or foraminal stenosis. L3-4: Minimal anterior endplate osteophytes. Minimal symmetric disc bulge. Minimal left facet arthropathy. No spinal or foraminal stenosis. L4-5: Mild posterior disc space height loss. Minimal endplate irregularity. The facet joints are largely obscured by susceptibility artifact. No spinal or foraminal stenosis. L5-S1: Fusion and posterior decompression. No spinal stenosis. The neural foramina are obscured by susceptibility artifact and are not well assessed. Procedure Note Karl Robert MD - 12/09/2024 PROCEDURE: MRI of the lumbar spine with intravenous contrast. HISTORY: radiculopathy, spinal stenosis, post laminectomy syndrome. TECHNIQUE: Sagittal and axial multisequence MRI of the lumbar spine withand without intravenous contrast administration. IV contrast dose: 12 mL intravenous Dotarem from a 15 mL vial with 3 mLdiscarded. COMPARISON: Radiographs dated 10/16/2024. FINDINGS: Postsurgical scarring in the lower midline soft tissues. No otherparaspinous soft tissue findings. Posterior ammy and pedicle screw fusion and an interbody cage device withposterior decompression at L5-S1. There is 7 mm of anterolisthesis atthis level. Alignment is otherwise maintained. No marrow infiltrative lesion. Normal position of the conus at T12-L1. No abnormal enhancement of theconus or nerve roots of the cauda equina. Lumbar disc levels: L1-2: Only imaged in sagittal plane. Minimal endplate irregularity.Minimal anterior endplate osteophytes. No spinal or foraminal stenosis. L2-3: Minimal endplate irregularity. Minimal anterior endplateosteophytes. Minimal disc bulge eccentric to the left. Slight wideningof the left facet joint suggesting mild hypermobility. No spinal orforaminal stenosis. L3-4: Minimal anterior endplate osteophytes. Minimal symmetric discbulge. Minimal left facet arthropathy. No spinal or foraminalstenosis. L4-5: Mild posterior disc space height loss. Minimal endplateirregularity. The facet joints are largely obscured by susceptibilityartifact. No spinal or foraminal stenosis. L5-S1: Fusion and posterior decompression. No spinal stenosis. Theneural foramina are obscured by susceptibility artifact and are not wellassessed. IMPRESSION: Posterior fusion and decompression at L5-S1, where there is grade 1retrolisthesis. Degenerative changes as detailed above. 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
== END 2025-02-19 08:35 | disposition home or self-care (01) ==
LOC: HO.MAMMO 08:34
PROVIDERS: PCP Internal Medicine Medical Oncology; Visit Provider Internal Medicine Medical Oncology
DX: Z13.820 Encounter for screening for osteoporosis (principal); Z78.0 Asymptomatic menopausal state; E55.9 Vitamin D deficiency, unspecified
CPT/HCPCS: 77080

== ENCOUNTER → 2025-02-19 08:45 | Outpatient (BNV) | payer OTHER, SELFPAY | PROVIDERS: PCP Internal Medicine Medical Oncology; Visit Provider Radiology Diagnostic Radiology | DX: E28.39 Other primary ovarian failure (principal) | CPT/HCPCS: 77080 ==

== ENCOUNTER 2025-04-30 07:51 | Outpatient (REF) | payer MEDICARE, SELFPAY ==
--- OUTSIDE RECORDS SUMMARY | 2023-12-26 06:15 | XMS_ITS ---
Author Organization Luis Stoner III, MD Address [address] [place] [address] [place] [address] Care Team Providers Care Sales Representative Leather Goods Name Role Phone Dr. Luis Stoner III Primary Care Provider Allergies Allergen (clinical drug ingredient) Drug/Non Drug Allergy documented on EMR Reaction Allergy Type Onset Date Status No Known Drug Allergy Unknown Drug Allergy Active REASON FOR VISIT Lumbar radiculopathy, Lumbar spondylolisthesis, ., Hyperlipidemia Medications Medication SIG (Take, Route, Frequency, Duration) Notes Start Date End Date Status Omeprazole 20 MG 1 capsule 30 minutes before morning meal Orally Once a day Active Cyclobenzaprine HCl 5 MG 1 tablet Orally twice a day prn muscle spasm 10/18/2023 Active Vitamin D3 50 MCG (1999) TAKE 1 TABLE T BY MOUTH EVERY DAY Active Meclizine HCl 25 MG 1 tablet Orally Thre e times a day prn vertigo 04/20/2023 Active Social History Tobacco Use: Social History Observation Description Date Details (start date - stop date) Former Smoker NA - NA Sex Assigned At : Social History Observation Description Sex Assigned At Female Tobacco Use/Smoking Question Answer Notes Patient is a former smoker How long has it been since you last smoked? > 10 years Additional Findings: Tobacco Non-User Ex-cigaret te smoker Vital Signs Temperature 97.3 degrees Fahrenheit 12/26/19 24 Blood pressure systolic 120 mm Hg 12/26/19 24 Blood pressure diastolic 73 mm Hg 024 Heart Rate 69 /min 12/26/2023 Height 62 in 12/26/2023 Weight 127 lbs 12/26/2023 BMI 23.23 kg/m2 12/26/2023 Encounters Encounter Location Date Provider Diagnosis Luis Stoner III, MD [address] [place] [address] [address] [place] [phone] 12/26/2023 Luis Stoner Lumbar paraspinal mu scle spasm M62.830 ; Vitamin D deficiency E55.9 ; Hypercholesteremia E78.00 ; GERD (gastroesophageal reflux disease) K21.9 ; Former smoker Z87.891 and Unspecified ovarian cyst, left side N83.202 Assessments Encounter Date Diagnosis (ICD Code) Assessment Notes T reatment Notes Treatment Clinical Notes 12/26/2023 Lumbar paraspinal mu scle spasm (ICD-10 - M62.830) After the neurosurgery her back pain has been better. She continues to have pain since last January, but it is mild.. He has a followup in the near future after a CT scan with her neurosurgeon. 12/26/2023 Vitamin D deficiency (ICD-10 - E55.9) She was continued on oral vitamins. Her vitamin D level is therapeutic. 12/26/2023 Hypercholesteremia (ICD-10 - E78.00) Her lipids are currently stable with a total cholesterol 203. No change in her regimen was made. 12/26/2023 GERD (gastroesophage al reflux disease) (ICD-10 - K21.9) Her reflux symptoms are controlled with medications. 12/26/2023 Former smoker (ICD-1 0 - Z87.891) We have formulated a plan to prevent relapse in times of stress or illness. 12/26/2023 Unspecified ovarian cyst, left side (ICD-10 - N83.202) She will remain under the care of JUDO INSTRUCTOR. Plan Of Treatment Medication Medication Name Sig Start Date Stop Date Notes Omeprazole 20 MG 1 capsule 30 minutes before morning meal Orally Once a day Cyclobenzaprine HCl 5 MG 1 tablet Orally twice a day prn muscle spasm 10/18/2023 Vitamin D3 50 MCG (1999) TAKE 1 TABLE T BY MOUTH EVERY DAY Meclizine HCl 25 MG 1 tablet Orally Thre e times a day prn vertigo 04/20/2023 Next Appt Details Follow Up: 6 Weeks, Reason: Office visit Provider Name:Luis Stoner , 07/31/2025 10:00:00 AM, [address] [place] [address] [place], [place], [address], Progress Notes * Brianne BRIDGES LDOB: (63 yo F)Acc No.[id number]:12/26/2023 Progress Notes Patient: Brianne Adkins Provider: Lucy Stoner MD :1960 A ge:63 Y S ex:Female Date:12/26/2023 Address:[address] [place], [place] [id number] Subjective: * Chief Complaints: * L umbar radiculopathyLumbar spondylolisthesis.Hyperlipidemia * HPI: C OVID-19 Screening: This is a scheduled visit to followup after her neurosurgery. She has had a fusion and has been back for a postoperative visit with Dr. Manjarrez's bilingual medical assistant. Her surgery was February 02, 2023. A CT scan of the spine has been ordered for February 02, 2024 followed by another visit. The patient continues to have back pain although she says it is much improved from prior to surgery. She remains able to conduct all of the activities of daily life. Her esophageal reflux symptoms have been well- controlled. There is no pain it radiates into the leg at this time. She is not smoking. She is compliant with her vitamin D replacement. The mammogram of October 05, 2023 was unremarkable. Her blood work is available and was reviewed with her in detail. Questions H ave you experienced fever, chills, cough, sore throat, shortness of breath, difficulty breathing, muscle aches, loss of taste or smell? N o H ave you been exposed to the virus within the last 10 days? N o H ave you travelled internationally in the last 10 days? N o H ave you been exposed to COVID-19 in the past? Y es * ROS: G eneral/Constitutional: pain L umbar spine, otherwise only normal aches and pains.?Chills d enies. F atigue a dmits. F ever d enies. E NT: Decreased hearing d enies. R espiratory: Cough d enies. C ardiovascular: Chest pain with exertion d enies. D yspnea on exertion?denies. S hortness of breath d enies. G astrointestinal: Constipation o ccasional. D ecreased appetite d enies. D iarrhea d enies. H eartburn c ontrolled with medications. N ausea d enies. R ectal bleeding d enies. V omiting d enies. H ematology: bruising d enies. p etechiae d enies. S wollen glands n one have been noted. G enitourinary: Frequent urination o nce a night. M usculoskeletal: Muscle aches d enies. P ainful joints L umbar spine. S ciatica d enies. W eakness d enies. S kin: Itching d enies. R deacon d enies. S kin lesion(s)?denies. N eurologic: Difficulty speaking d enies. D izziness d enies.?Headache d enies. L ow back pain t hat is chronic. P sychiatric: Depressed mood d enies. * Medical History: * Surgical History: W isdom teeth extractions x 2 Cholecystectomy Right knee arthroscopy Upper endoscopy and colonoscopy, 1 tubular adenoma,[facility] [place], Dr. Luciano analgesic injections lumbar spine prior near [place] spine and sports Lumbar spine fusion 02/02/2023 * Hospitalization/Major Diagno stic Procedure: D enies Past Hospitalization * Family History: F ather: 59 yrs, Lung cancer, diagnosed with Cancer, HTN. M other: alive 85 yrs, copd,chf,ckd,pad,dm2,, diagnosed with Hyperlipidemia, HTN, DM, CVD. C corinne: alive. S on(s): alive. D reinaldoer(s): alive. S iblings: , diagnosed with HTN. 5 brother(s) . 1 son(s) , 1 daughter(s) - healthy. . Her mother is alive with COPD diabetes peripheral arterial disease chronic kidney disease and congestive heart failure. Her father at the age of 59 of lung cancer. She has 5 brothers one of whom has in a fire. One has a colostomy from diverticulitis and one has atrial fibrillation. She has no sisters. There is no other family history of cancer. She is not aware of any family history of mental illness or substance use disorder or addiction. * Social History: T obacco Use: T obacco Use/Smoking P atient is a f ormer smoker H ow long has it been since you last smoked??> 10 years A dditional Findings: Tobacco Non-User E x-cigarette smoker S he stopped smoking in 1990. She has 2 children , alive and well and September,, alive and well. She has 1 healthy grandson and well and healthy granddaughter. Her road mixer operator is Dr. Torres at [facility]. Her last mammogram in August 2020 was normal. She is to [facility]. * Medications: T akingCyclobenzaprine HCl 5 MG Tablet 1 tablet Orally twice a day prn muscle spasm, stop date 02/15/2024Meclizine HCl 25 MG Tablet Chewable 1 tablet Orally Three times a day prn vertigoOmeprazole 20 MG Capsule Delayed Release 1 capsule 30 minutes before morning meal Orally Once a dayVitamin D3 50 MCG (1999 UT) Tablet TAKE 1 TABLET BY MOUTH EVERY DAY Medication List reviewed and reconciled with the patientTaking Cyclobenzaprine HCl 5 MG Tablet 1 tablet Orally twice a day prn muscle spasm, stop date 02/15/2024Taking Meclizine HCl 25 MG Tablet Chewable 1 tablet Orally Three times a day prn vertigoTaking Omeprazole 20 MG Capsule Delayed Release 1 capsule 30 minutes before morning meal Orally Once a dayTaking Vitamin D3 50 MCG (1999 UT) Tablet TAKE 1 TABLET BY MOUTH EVERY DAY Medication List reviewed and reconciled with the patient * Allergies: N o Known Drug Allergyno[Allergies Verified] Objective: * Vitals: H t: 62, Wt: 127, BMI:23.23, BP: 120/73, HR: 69, Temp: 97.3, Wt-k.61. * P ast Orders: Lab:Lipid Panel * Order Date 12/22/2023 07/11/2023 01/20/2023 Triglycerides 68 (Ref Range: <150 mg/dL) 83 (Ref Range: <150 mg/dL) 106 (Ref Range: mg/dL) Cholesterol 196 (Ref Range: <200 mg/dL) 203 H (Ref Range: <200 mg/dL) 208 (Ref Range: mg/dL) LDL Cholesterol Calculated 122 H (Ref Range: <100 mg/dL) 125 H (Ref Range: <100 mg/dL) 130 (Ref Range: mg/dl) HDL Cholesterol 61 (Ref Range: >40 mg/dL) 62 (Ref Range: >40 mg/dL) 57 (Ref Range: mg/dL) * Lab:[facility] Fast * Order Date 12/22/2023 07/11/2023 01/20/2023 Sodium 140 (Ref Range: 135-145 mmol/L) 141 (Ref Range: 135-145 mmol/L) 141 (Ref Range: 135-145 mmol/L) Bilirubin Total 0.3 (Ref Range: 0.0-1.0 mg/dL) 0.4 (Ref Range: 0.0-1.0 mg/dL) 0.4 (Ref Range: 0.0-1.0 mg/dL) Aspartate Amino Transferase 16 (Ref Range: 5-31 U/L) 21 (Ref Range: 5-31 U/L) 17 (Ref Range: 5-31 U/L) Alanine Aminotransferase 14 (Ref Range: 0-31 U/L) 20 (Ref Range: 0-31 U/L) 13 (Ref Range: 0-31 U/L) Total Protein 7.2 (Ref Range: 6.5-8.0 g/dL) 7.7 (Ref Range: 6.5-8.0 g/dL) 7.4 (Ref Range: 6.5-8.0 g/dL) Albumin Level 4.4 (Ref Range: 3.5-5.0 g/dL) 4.5 (Ref Range: 3.5-5.0 g/dL) 4.3 (Ref Range: 3.5-5.0 g/dL) Alkaline Phosphatase 71 (Ref Range: 39-117 U/L) 80 (Ref Range: 39-117 U/L) 64 (Ref Range: 39-117 U/L) Potassium 3.9 (Ref Range: 3.3-5.1 mmol/L) 4.4 (Ref Range: 3.3-5.1 mmol/L) 3.9 (Ref Range: 3.3-5.1 mmol/L) Chloride 105 (Ref Range: 96-108 mmol/L) 105 (Ref Range: 96-108 mmol/L) 105 (Ref Range: 96-108 mmol/L) Carbon Dioxide 25 (Ref Range: 22-29 mmol/L) 27 (Ref Range: 22-29 mmol/L) 28 (Ref Range: 22-29 mmol/L) Anion Gap 14 (Ref Range: 12-20) 13 (Ref Range: 12-20) 12 (Ref Range: 12-20) Blood Urea Nitrogen 18 H (Ref Range: 9-16 mg/dL) 15 (Ref Range: 9-16 mg/dL) 13 (Ref Range: 9-16 mg/dL) Creatinine 0.82 (Ref Range: 0.5-1.4 mg/dL) 0.82 (Ref Range: 0.5-1.4 mg/dL) 0.79 (Ref Range: 0.5-1.4 mg/dL) Estimated Glomerular Filt Rate > 60 > 60 > 60 Glucose Fasting 102 H (Ref Range: 60-99 mg/dL) 104 H (Ref Range: 60-99 mg/dL) 95 (Ref Range: 60-99 mg/dL) Calcium 9.5 (Ref Range: 8.4-10.2 mg/dL) 9.8 (Ref Range: 8.4-10.2 mg/dL) 9.7 (Ref Range: 8.4-10.2 mg/dL) * Lab:Complete Blood Count Aut o Diff * Order Date 12/22/2023 07/11/2023 01/20/2023 White Blood Count 4.9 (Ref Range: 4.8-10.8 X10*3/uL) 5.9 (Ref Range: 4.8-10.8 X10*3/uL) 5.6 (Ref Range: 4.8-10.8 X10*3/uL) Red Blood Count 3.90 L (Ref Range: 4.20-5.50 X10*6/uL) 3.96 L (Ref Range: 4.20-5.50 X10*6/uL) 4.14 L (Ref Range: 4.20-5.50 X10*6/uL) Hemoglobin 12.9 (Ref Range: 12.0-16.0 g/dl) 13.0 (Ref Range: 12.0-16.0 g/dl) 13.6 (Ref Range: 12.0-16.0 g/dl) Hematocrit 38.2 (Ref Range: 37.0-47.0 %) 37.9 (Ref Range: 37.0-47.0 %) 40.3 (Ref Range: 37.0-47.0 %) Mean Corpuscular Volume 97.9 (Ref Range: 80.0-98.0 fL) 95.7 (Ref Range: 80.0-98.0 fL) 97.3 (Ref Range: 80.0-98.0 fL) Mean Corpuscular Hemoglobin 33.1 H (Ref Range: 27.0-33.0 pg) 32.8 (Ref Range: 27.0-33.0 pg) 32.9 (Ref Range: 27.0-33.0 pg) Mean Corpuscular HGB Conc 33.8 (Ref Range: 31.0-35.0 g/dl) 34.3 (Ref Range: 31.0-35.0 g/dl) 33.7 (Ref Range: 31.0-35.0 g/dl) Red Cell Distribution Width 11.9 (Ref Range: 11.0-16.0 %) 11.6 (Ref Range: 11.0-16.0 %) 11.5 (Ref Range: 11.0-16.0 %) Platelet Count 272 (Ref Range: 160-400 X10*3/uL) 219 (Ref Range: 160-400 X10*3/uL) 219 (Ref Range: 160-400 X10*3/uL) Mean Platelet Volume 8.1 L (Ref Range: 9.4-12.3 fL) 8.4 L (Ref Range: 9.4-12.3 fL) 8.4 L (Ref Range: 9.4-12.3 fL) Neutrophils Percent Auto 54.8 (Ref Range: 45-73 %) 63.6 (Ref Range: 45-73 %) 52.7 (Ref Range: 45-73 %) Imm Gran Pct Auto 0.4 (Ref Range: 0.0-0.4 %) 0.2 (Ref Range: 0.0-0.4 %) 0.2 (Ref Range: 0.0-0.4 %) Lymphocytes Percent Auto 33.5 (Ref Range: 20-40 %) 25.6 (Ref Range: 20-40 %) 34.3 (Ref Range: 20-40 %) Monocytes Percent Auto 8.1 (Ref Range: 2-11 %) 7.7 (Ref Range: 2-11 %) 9.8 (Ref Range: 2-11 %) Eosinophils Percent Auto 2.8 (Ref Range: 0-4 %) 2.4 (Ref Range: 0-4 %) 2.3 (Ref Range: 0-4 %) Basophils Percent Auto 0.4 (Ref Range: 0-2 %) 0.5 (Ref Range: 0-2 %) 0.7 (Ref Range: 0-2 %) NRBC Pct Auto 0.0 (Ref Range: 0.0-0.2 /100WBC) 0.0 (Ref Range: 0.0-0.2 /100WBC) 0.0 (Ref Range: 0.0-0.2 /100WBC) Neutrophils Absolute Auto 2.7 (Ref Range: 2.0-8.3 x10*3/uL) 3.7 (Ref Range: 2.0-8.3 x10*3/uL) 3.0 (Ref Range: 2.0-8.3 x10*3/uL) Imm Gran Abs Auto 0.02 (Ref Range: 0.00-0.03 X10*3/uL) 0.01 (Ref Range: 0.00-0.03 X10*3/uL) 0.01 (Ref Range: 0.00-0.03 X10*3/uL) Lymphocytes Absolute Auto 1.7 (Ref Range: 1.2-4.9 X10*3/uL) 1.5 (Ref Range: 1.2-4.9 X10*3/uL) 1.9 (Ref Range: 1.2-4.9 X10*3/uL) Monocytes Absolute Auto 0.4 (Ref Range: 0.1-1.2 X10*3/uL) 0.5 (Ref Range: 0.1-1.2 X10*3/uL) 0.6 (Ref Range: 0.1-1.2 X10*3/uL) Eosinophils Absolute Auto 0.1 (Ref Range: 0.0-0.4 X10*3/uL) 0.1 (Ref Range: 0.0-0.4 X10*3/uL) 0.1 (Ref Range: 0.0-0.4 X10*3/uL) Basophils Absolute Auto 0.0 (Ref Range: 0.0-0.2 X10*3/uL) 0.0 (Ref Range: 0.0-0.2 X10*3/uL) 0.0 (Ref Range: 0.0-0.2 X10*3/uL) NRBC Abs Auto 0.000 (Ref Range: 0.0-0.012 X10*3/uL) 0.000 (Ref Range: 0.0-0.012 X10*3/uL) 0.000 (Ref Range: 0.0-0.012 X10*3/uL) * Imaging:MM tomosynthesis scr eening BI * Order Date 10/05/2023 09/30/2022 08/17/2021 * Examination: G eneral Examination: GENERAL APPEARANCE: p leasant, well nourished, well developed, in no acute distress,calm and relaxedwoman, . HEAD: a traumatic, normocephalic. EYES: e isauro, perrla, anicteric, conjugate. EARS: n ormal. NOSE: s eptum intact. ORAL CAVITY: n ormal, unremarkable. NECK/THYROID: n o jugular venous distention, no carotid bruit, thyroid normal. LYMPH NODES: n o enlarged lymph nodes,spleen normal. SKIN: n o suspicious lesions, anicteric. HEART: n o clicks, gallops, murmurs, or rubs, regular rhythm, S1, S2 normal, no s3, or vascular bruits. LUNGS: c lear to auscultation . BREASTS: n ot examined. ABDOMEN: b owel sounds normal, no ascites, no organomegaly, no mass. RECTAL EXAM: n ot examined. MUSCULOSKELETAL: e xtremities unremarkable, no clubbing, cyanosis or edema, Surgical incision well-healed lumbar spine. PERIPHERAL PULSES: n ormal. NEUROLOGIC: a lert and oriented, cranial nerves 2-12 grossly intact, deep tendon reflexes 2+ symmetrical, motor strength normal upper and lower extremities, sensory exam intact. PSYCH: a lert, oriented. Assessment: * Assessment: 1. V itamin D deficiency - E55.9, She was continued on oral vitamins. Her vitamin D level is therapeutic. 2 . L umbar paraspinal muscle spasm - M62.830, After the neurosurgery her back pain has been better. She continues to have pain since last January, but it is mild.. He has a followup in the near future after a CT scan with her neurosurgeon. 3 . H ypercholesteremia - E78.00, Her lipids are currently stable with a total cholesterol 203. No change in her regimen was made.?4. G ERD (gastroesophageal reflux disease) - K21.9, Her reflux symptoms are controlled with medications. 5 . F ormer smoker - Z87.891, We have formulated a plan to prevent relapse in times of stress or illness. 6 . U nspecified ovarian cyst, left side - N83.202, She will remain under the care of JUDO INSTRUCTOR. Plan: * Treatment: 2. O thers Continue Vitamin D3 Tablet, 50 MCG (1999 UT), TAKE 1 TABLET BY MOUTH EVERY DAY; C ontinue Cyclobenzaprine HCl Tablet, 5 MG, 1 tablet, Orally, twice a day prn muscle spasm. * Procedure Codes: * Preventive Medicine: Counseling: S moking/Tobacco Use Patient counseled on the dangers of tobacco use and urged to quit. 0 12/26/2023 * Follow Up: 6 Weeks (Reason: Office visit) * Images: * Sign off status: Completed true * Provider: Lucy Stoner MD Date: 0 12/26/2023 Generated for Nayla hanna/Leonel/Claudia on: 06/30/2024 08:01 AM EST History and Physical Notes * HPI (History of Present Illness) Category Sub-Category Detail Notes COVID-19 Screening Questions Have you had any new onset fever, chills, cough, congestion, sore throat, shortness of breath, muscle aches?: No Have you been exposed to the virus withi n the last 10 days?: No Have you travelled internationally in last 10 days?: No Have you been exposed to COVID-19 in the past?: Yes Examination Category Sub-Category Detail Notes General Examination GENERAL APPEARANCE: pleasant , well nourished, well developed, in no acute distress, calm and relaxed woman, HEAD: atraumatic, normocep halic EYES: eomi, perrla, anicte arlene, conjugate EARS: normal NOSE: septum intact NECK/THYROID: no jugular venous di stention, no carotid bruit, thyroid normal HEART: no clicks, gallops, murmurs, or rubs, regular rhythm, S1, S2 normal, no s3, or vascular bruits LUNGS: clear to auscultatio n ABDOMEN: bowel sounds normal, no ascites, no organomegaly, no mass NEUROLOGIC: alert and oriented, cranial nerves 2-12 grossly intact, deep tendon reflexes 2+ symmetrical, motor strength normal upper and lower extremities, sensory exam intact SKIN: no suspicious lesion s, anicteric PERIPHERAL PULSES: normal BREASTS: not examined MUSCULOSKELETAL: extremities unremark able, no clubbing, cyanosis or edema, Surgical incision well-healed lumbar spine LYMPH NODES: no enlarged lymph no angélica,spleen normal RECTAL EXAM: not examined PSYCH: alert, oriented ORAL CAVITY: normal, unremarkable
--- OUTSIDE RECORDS SUMMARY | 2023-12-27 04:30 | XMS_ITS ---
Author Organization Luis Stoner III, MD Address [address] [place] [address] [place] [address] Care Team Providers Care Ear Nose Throat Physician Name Role Phone Dr. Luis Stnoer III Primary Care Provider REASON FOR VISIT needs new order for labs prior to annual exam Social History Sex Assigned At : Social History Observation Description Sex Assigned At Female Encounters Encounter Location Date Provider Diagnosis Luis Stoner III, MD [address] [place] [address] [place] [address] 12/27/2023 Luis Stoner Hypercholesteremia E 78.00 ; GERD (gastroesophageal reflux disease) K21.9 and Lumbar radiculopathy M54.16 Assessments Encounter Date Diagnosis (ICD Code) Assessment Notes Treat ment Notes Treatment Clinical Notes 12/27/2023 Hypercholesteremia (ICD-10 - E78.00) 12/27/2023 GERD (gastroesophage al reflux disease) (ICD-10 - K21.9) 12/27/2023 Lumbar radiculopathy (ICD-10 - M54.16) Plan Of Treatment Next Appt Details Provider Name:Luis Stoner , 07/31/2025 10:00:00 AM, [address] [place] [address] [place], [address], Progress Notes * Brianne BRIDGES LDOB: (63 yo F)Acc No.[id number]:12/27/2023 Patient: Brianne Adkins :1960 A ge:63 Y S ex:Female Address:[address] [place], [place] [address], [address] Subjective: * Chief Complaints: * N eeds [...] * true * Date: Generated for Nayla hanna/Leonel/Isaacitting on: 06/30/2024 08:01 AM EST
--- OUTSIDE RECORDS SUMMARY | 2024-02-26 04:45 | XMS_ITS ---
Author Organization Luis Stoner III, MD Address [address] [place] [address] [place] [address] Care Team Providers Care Drug Abuse Technician Name Role Phone Dr. Luis Stoner III [...] Provider Diagnosis Luis Stoner III, MD [address] [place] [address] 02/26/2024 Luis Stoner Vitamin D deficiency E55.9 [...] spasm 10/18/2023 Vitamin D3 50 MCG (1999 [place]) TAKE 1 TABLE T BY MOUTH EVERY DAY Pending Test Test Name Order Date PROFILE, FASTING (COMPREHENSIVE METABOLI C) 02/26/2024 MAGNESIUM 02/26/2024 CBC WITH AUTO DIFF 02/26/2024 Lipid Panel 02/26/2024 Vitamin D 25-OH Total 02/26/2024 Next Appt Details Follow Up: As Scheduled, Kaitlin son: OV Provider Name:Luis Stoner , 07/31/2025 10:00:00 AM, [address] [place] [address] [place], [place], [address], Progress Notes * Brianne BRIDGES LDOB: (63 yo F)Acc No.[id number]:02/26/2024 Progress Notes Patient: Brianne Adkins Provider: Lucy Stoner MD :1960 A ge:63 Y S ex:Female Date:02/26/2024 Address:[address] [place] [address] [place] [id number] Subjective: * Chief Complaints: * L umbar [...] continues to take omeprazole for dyspepsia. Her secretary of state says he is treating dysfunction of the [...] arthroscopy Upper endoscopy and colonoscopy, 1 tubular adenoma,[facility] [place], [place]. Luciano analgesic injections lumbar spine prior near [place] spine and sports Lumbar spine fusion 02/02/2023 * Hospitalization/Major Diagno stic Procedure: D enies Past Hospitalization * Family History: F ather: 59 yrs, Lung cancer, diagnosed with HTN, Cancer. M other: alive 85 yrs, copd,chf,ckd,pad,dm2,, diagnosed with HTN, DM, CVD, Hyperlipidemia. C corinne: alive. S on(s): alive. D reinaldoer(s): alive. S ibjennifer: , diagnosed with HTN. 5 brother(s) . [...] grandson and well and healthy granddaughter. Her toll line repairer is Dr. Torres at [facility]. Her last mammogram in August 2020 [...] with the patientTaking Vitamin D3 50 MCG (1999) Tablet TAKE 1 [...] mg/dL) 57 (Ref Range: mg/dL) * Lab:Comprehensive [place]. Pane l Fast * Order Date 12/22/2023 [...] Examination: G eneral Examination: GENERAL APPEARANCE: p vivienne, well nourished, well developed, in no acute [...] MD Date: 0 02/26/2024 Generated for Nayla hanna/Leonel/eTransmitting on: 06/30/2024 08:00 AM EST History and Physical Notes * HPI (History of Present Illness) Category Sub-Category Detail Notes COVID-19 Screening Questions Have you had any new onset fever, chills, cough, congestion, sore throat, shortness of breath, muscle aches?: No Have you been exposed to the virus withi n the last 10 days?: No Have you travelled internationally in [facility] last 10 days?: No Have you been [...]
--- OUTSIDE RECORDS SUMMARY | 2024-04-12 05:50 | XMS_ITS ---
Author Organization Luis Stoner III, MD Address [address] [place] [address] [place] [address] Care Team Providers Care Environmental Health Sanitarian Name Role Phone Dr. Luis Stoner III Primary Care Provider [phone] REASON FOR VISIT Rx Request Medications Medication SIG (Take, Route, Fr equency, Duration) Notes Start Date End Date Status Meclizine HCl 25 MG 1 tablet Orally Thre e times a day prn vertigo for 7 days 04/20/2023 Activ e Social History Sex Assigned At : Social History Observation Description Sex Assigned At Female Encounters Encounter Location Date Provider Diagnosis Luis Stoner III, MD [address] [place] [address] [address] [place] [address] 04/12/2024 Luis Stoner Plan Of Treatment Medication Medication Name Sig Start Date Stop Date Notes Meclizine HCl 25 MG 1 tablet Orally Thre e times a day prn vertigo for 7 days 04/20/2023 Next Appt Details Provider Name:Luis Stoner , 07/31/2025 10:00:00 AM, [address] [place] [address] [place], [address], Progress Notes * Brianne BRIDGES LDOB: (63 yo F)Acc No.[id number]:04/12/2024 Patient: Brianne GUEVARA :1960 A ge:63 Y S ex:Female Address:[address] [place], [place] [address], [place], [address] * Refills Refill Meclizine HCl Tablet Chewable, 25 MG, Orally, 21, 1 tablet, Three times a day prn vertigo, 7 days, Refills=6 * true * Date: Generated for Nayla hanna/Leonel/Claudia on: 06/30/2024 08:01 AM EST
--- OUTSIDE RECORDS SUMMARY | 2024-07-29 09:00 | XMS_ITS ---
Author Organization Luis Stoner III, MD Address [address] [place] [address] [place] [address] Care Team Providers Care Solutions Operator Name Role Phone Dr. Luis Stoner [...] Date Provider Diagnosis Luis Stoner III, MD [address] [place] [address] [place] [address] 07/29/2024 Luis Stoner Vitamin D deficiency E55.9 [...] Months, Reason: OV Provider Name:Luis Stoner , 07/31/2025 10:00:00 AM, [address] [place] [address] DR [facility], [place], [address], Progress Notes * Brianne BRIDGES LDOB: (64 yo F)Acc No.[id number]:07/29/2024 Progress Notes Patient: Brianne GUEVARA Provider: Lucy Stoner MD :1960 A ge:64 Y S ex:Female Date:07/29/2024 Address:[address] [place] [address] [id number] Subjective: * Chief Complaints: * A nnual [...] arthroscopy Upper endoscopy and colonoscopy, 1 tubular adenoma,[facility], Dr. Luciano analgesic injections lumbar spine prior near [place] spine and sports Lumbar spine fusion 02/02/2023No history * Hospitalization/Major Diagno stic Procedure: N o history * Family History: F ather: 59 yrs, Lung cancer, diagnosed with Cancer, HTN. M other: alive 85 yrs, copd,chf,ckd,pad,dm2,, diagnosed with Hyperlipidemia, CVD, DM, HTN. C hilen: alive. S on(s): alive. D reinaldoer(s): alive. [...] grandson and well and healthy granddaughter. Her public administration teacher is Dr. Torres at [facility]. Her last mammogram in August 2020 was normal. She is to [place]. * Medications: T akingVitamin D3 50 MCG (1999 UT) Tablet TAKE [...] 2.1 (Ref Range: 1.6-2.6 mg/dL) * Lab:Comprehensive [place]. Pane l Fast * Collection Date 07/23/2024 [...] . BREASTS: N ot examined, Done by ABSTRACT SEARCHER. ABDOMEN: b owel sounds normal, no ascites, no organomegaly, no mass. RECTAL EXAM: n ot examined, Done by ABSTRACT SEARCHER. MUSCULOSKELETAL: e xtremities unremarkable, no clubbing, cyanosis [...] Stoner MD Date: 0 07/29/2024 Generated for Nayla hanna/Leonel/Isaacitting on: 06/30/2024 08:01 AM EST History and [...] normal BREASTS: Not examined, Done b y ABSTRACT SEARCHER MUSCULOSKELETAL: extremities unremark able, no clubbing, cyanosis or edema LYMPH NODES: no enlarged lymph no angélica,spleen normal RECTAL EXAM: not examined, Done b y ABSTRACT SEARCHER PSYCH: alert, oriented ORAL CAVITY: normal, unremarkable
--- OUTSIDE RECORDS SUMMARY | 2025-01-27 05:00 | XMS_ITS ---
Author Organization Luis Stoner III, MD Address [address] [place] [address] [place] [address] Care Team Providers Care Canopy Inspector Name Role Phone Dr. Luis Stoner III Primary Care Provider Allergies Allergen (clinical drug ingredient) Drug/Non Drug Allergy documented on EMR Reaction Allergy Type Onset Date Status No Known Drug Allergy Unknown Drug Allergy Active REASON FOR VISIT Anxiety with recent panic attacks, Hyperlipidemia, Low back pain, GERD Medications Medication SIG (Take, Route, Frequency, Duration) Notes Start Date End Date Status Lidocaine 5 % External Active Meclizine HCl 25 MG 1 tablet Orally Thre e times a day prn vertigo Active Cyclobenzaprine HCl 5 MG 1 tablet Orally twice a day prn muscle spasm 10/18/2023 Active Vitamin D3 50 MCG (1999) TAKE 1 TABLE T BY MOUTH EVERY DAY Active Omeprazole 20 MG 1 capsule 30 minutes before morning meal Orally Once a day Active Social History Tobacco Use: Social History [...] Additional Findings: Tobacco non-user Ex-cigaret te smoker Problems Problem Type SNOMED Code ICD Code Onset Dates Problem Status W/U Status Risk Notes Problem 46282832 Anxiety, generalized (F41.1) Active confirmed She was referred to mental health. If this worsens she will return to the office and we will discuss sertraline. Vital Signs Temperature 97.3 degrees Fahrenheit 01/28/20 25 Blood pressure systolic 139 mm Hg 01/28/20 25 Blood pressure diastolic 87 mm Hg 025 Heart Rate 80 /min 01/27/2025 Height 62 in 01/27/2025 Weight 132 lbs 01/27/2025 BMI 24.14 kg/m2 01/27/2025 Encounters Encounter Location Date Provider Diagnosis Luis Stoner III, MD [address] [place] [address] [place], [place] [address] 01/27/2025 Luis Stoner Osteoporosis screeni ng Z13.820 ; Anxiety, generalized F41.1 ; Former smoker Z87.891 ; Vitamin D deficiency E55.9 ; Hypercholesteremia E78.00 ; Lumbar radiculopathy M54.16 and Pars defect M43.00 Assessments Encounter Date Diagnosis (ICD Code) Assessment Notes Treat ment Notes Treatment Clinical Notes 01/27/2025 Osteoporosis screeni ng (ICD-10 - Z13.820) She is due for a bone density test which was scheduled. 01/27/2025 Anxiety, generalized (ICD-10 - F41.1) She was referred to mental health. If this worsens she will return to the office and we will discuss sertraline. 01/27/2025 Former smoker (ICD-1 0 - Z87.891) We have formulated a plan to prevent relapse in times of stress or illness. 01/27/2025 Vitamin D deficiency (ICD-10 - E55.9) Vitamin D supplements. 01/27/2025 Hypercholesteremia (ICD-10 - E78.00) Her total cholesterol is within her target range. Her weight is stable and in the normal range. We have discussed her diet and nutrition today. 01/27/2025 Lumbar radiculopathy (ICD-10 - M54.16) Her back pain is currently stable and improving slowly. The fusion is healing. 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 She will continue on current therapy for her low back pain Plan Of Treatment Medication Medication Name Sig Start Date Stop Date Notes Lidocaine 5 % External Meclizine HCl 25 MG 1 tablet Orally Thre e times a day prn vertigo Cyclobenzaprine HCl 5 MG 1 tablet Orally twice a day prn muscle spasm 10/18/2023 Vitamin D3 50 MCG (1999 UT) TAKE 1 TABLE T BY MOUTH EVERY DAY Omeprazole 20 MG 1 capsule 30 minutes before morning meal Orally Once a day Pending Test Test Name Order Date BONE DENSITY DEXA 01/27/2025 Next Appt Details Follow Up: 3 Months, Reason: OV Provider Name:Luis Garciane , 07/31/2025 10:00:00 AM, [address] [place] [address], [place] [address], [place], [address], Progress Notes * YULIANA, Brianne LDOB: (64 yo F)Acc No.[id number]:01/27/2025 Progress Notes Patient: Brianne GUEVARA Provider: Lucy Stoner MD :1960 A ge:64 Y S ex:Female Date:01/27/2025 Address:[address] [place], [place] [address] Subjective: * Chief Complaints: * A nxiety with recent panic attacksHyperlipidemiaLow back painGERD * HPI: C OVID-19 Screening: She comes in because of increasing anxiety and a couple of panic attacks over the last 6 months.? She says she experienced anxiety first as a child and now is an adult but it has been worse over the last 6 months. She wanted to explore her options for treatment. She did not want to take medication today. She decided she would pursue a course of psychotherapy. I instructed her how to use her medical insurance to be referred to an appropriate mental health practitioner.She agreed that if it became worse she will inform me and we would try a combination medication as well as therapy. Questions H ave you had any new onset fever, chills, cough, congestion, sore throat, shortness of breath, muscle aches? N o * ROS: G eneral/Constitutional: pain o nly normal aches and pains. C hills d enies.?Fatigue a dmits. F ever d enies. E [...] enies.?Headache d enies. L ow back pain d enies. P sychiatric: Depressed mood R ecent worsening annxxiety with occasional panic attacks. * Medical History: * Surgical History: W isdom teeth extractions x 2 Cholecystectomy Right knee arthroscopy Upper endoscopy and colonoscopy, 1 tubular adenoma,[facility], Dr. Luciano analgesic injections lumbar spine prior near [place] spine and sports Lumbar spine fusion 02/02/2023No history * Hospitalization/Major Diagno stic Procedure: N o history * Family History: F ather: 59 yrs, Lung cancer, diagnosed with HTN, Cancer. M other: alive 85 yrs, copd,chf,ckd,pad,dm2,, diagnosed with CVD, DM, HTN, Hyperlipidemia. C corinne: alive. S on(s): alive. D janmalissaer(s): alive. S iblings: , diagnosed with HTN. [...] dditional Findings: Tobacco non-user E x-cigarette smoker S he stopped smoking in 1990. She has 2 children , alive and well and September,, alive and well. She has 1 healthy grandson and well and healthy granddaughter. Her financial systems analyst is Dr. Torres at [facility]. Her last mammogram in August 2020 was normal. She is to [place]. * Medications: T akingMeclizine HCl 25 MG Tablet Chewable 1 tablet Orally Three times a day prn vertigo Vitamin D3 50 MCG (1999 UT) Tablet TAKE 1 TABLET BY MOUTH EVERY DAY Omeprazole 20 MG Capsule Delayed Release 1 capsule 30 minutes before morning meal Orally Once a day Cyclobenzaprine HCl 5 MG Tablet 1 tablet Orally twice a day prn muscle spasm Lidocaine 5 % Patch External Medication List reviewed and reconciled with the patientTaking Meclizine HCl 25 MG Tablet Chewable 1 tablet Orally Three times a day prn vertigo Taking Vitamin D3 50 MCG (1999 UT) Tablet TAKE 1 TABLET BY MOUTH EVERY DAY Taking Omeprazole 20 MG Capsule Delayed Release 1 capsule 30 minutes before morning meal Orally Once a day Taking Cyclobenzaprine HCl 5 MG Tablet 1 tablet Orally twice a day prn muscle spasm Taking Lidocaine 5 % Patch External Medication List reviewed and reconciled with the patient * Allergies: N o Known Drug Allergyno[Allergies Verified] Objective: * Vitals: H t: 62, Wt: 132, BMI:24.14, BP: 139/87, HR: 80, Temp: 97.3, Wt-k.87. * P ast Orders: Imaging:MM tomosynthesis scr eening BI * Performed Date 11/02/2024 10/05/2023 09/30/2022 09:10 AM 11:25 AM 03:20 PM Order Date 11/02/2024 10/05/2023 09/30/2022 ???Lab:Pap Smear (Order Date - 10/29/2024) (Collection Date & Time - 10/29/2024 09:57 AM) * Examination: G eneral Examination: GENERAL APPEARANCE: p leasant, well nourished, well developed, in no acute distress, calm and relaxed: woman. HEAD: a traumatic, normocephalic. EYES: e [...] lear to auscultation . BREASTS: N ot examined. ABDOMEN: b owel sounds normal, no ascites, no organomegaly, no mass. RECTAL EXAM: n ot examined. MUSCULOSKELETAL: e xtremities unremarkable, no clubbing, cyanosis or edema. PERIPHERAL PULSES: n ormal. NEUROLOGIC: a lert and oriented, cranial nerves 2-12 grossly intact, deep tendon reflexes 2+ symmetrical, motor strength normal upper and lower extremities, sensory exam intact. PSYCH: a lert, oriented: anxious appearing. ? Assessment: * Assessment: 1. A nxiety, generalized - F41.1 (Primary) N otes :She was referred to mental health. If this worsens she will return to the office and we will discuss sertraline. 2 . O steoporosis screening - Z13.820 N otes :She is due for a bone density test which was scheduled. 3 . F ormer smoker - Z87.891 N otes :We have formulated a plan to prevent relapse in times of stress or illness. 4 . V itamin D deficiency - E55.9 N otes :Vitamin D supplements. 5 . H ypercholesteremia - E78.00 N otes :Her total cholesterol is within her target range. Her weight is stable and in the normal range. We have discussed her diet and nutrition today. 6 . L umbar radiculopathy - M54.16 N otes :Her back pain is currently stable and improving slowly. The fusion is healing. The pain is much improved 7 . 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 She will continue on current therapy for her low back pain Plan: * Treatment: 2. O steoporosis screening I maging: BONE DENSITY DEXA 3. O thers Continue Meclizine HCl Tablet Chewable, 25 MG, 1 tablet, Orally, Three times a day prn vertigo;?Continue Vitamin D3 Tablet, 50 MCG (1999 UT), TAKE 1 TABLET BY MOUTH EVERY DAY; C ontinue Omeprazole Capsule Delayed Release, 20 MG, 1 capsule 30 minutes before morning meal, Orally, Once a day;?Continue Cyclobenzaprine HCl Tablet, 5 MG, 1 tablet, Orally, twice a day prn muscle spasm.? * Procedure Codes: * Preventive Medicine: Counseling: S moking/Tobacco Use Patient counseled on the dangers of tobacco use and urged to quit. 0 01/27/2025 * Follow Up: 3 Months (Reason: OV) * Images: * Sign off status: Completed true * Provider: Lucy Stoner MD Date: 0 01/27/2025 Generated for Nayla hanna/Leonel/eTransmitting on: 06/30/2024 08:00 AM EST History and Physical Notes * HPI (History of Present Illness) Category Sub-Category Detail Notes COVID-19 Screening Questions Have you had any new onset fever, chills, cough, congestion, sore throat, shortness of breath, muscle aches?: No Examination Category Sub-Category Detail Notes General Examination GENERAL APPEARANCE: pleasant , well nourished, well developed, in no acute distress, calm and relaxed: woman HEAD: atraumatic, normocep halic EYES: eomi, [...] s, anicteric PERIPHERAL PULSES: normal BREASTS: Not examined MUSCULOSKELETAL: extremities unremark able, no clubbing, cyanosis or edema LYMPH NODES: no enlarged lymph no angélica,spleen normal RECTAL EXAM: not examined PSYCH: alert, oriented: anx ious appearing ORAL CAVITY: normal, unremarkable
--- OUTSIDE RECORDS SUMMARY | 2025-01-31 08:27 | XMS_ITS ---
Author Organization Luis Stoner III, MD Address [address] [place] [address] [place] [address] Care Team Providers Care Towel Sorter Name Role Phone Dr. Luis Stoner III Primary Care Provider REASON FOR VISIT New Bone Density Order Social History Sex Assigned At : Social History Observation Description Sex Assigned At Female Encounters Encounter Location Date Provider Diagnosis Luis Stoner III, MD [address] [place] [address] [place] [address] 01/31/2025 Luis Stoner Osteoporosis screeni ng Z13.820 ; Vitamin D deficiency E55.9 and Post menopausal syndrome Z78.0 Assessments Encounter Date Diagnosis (ICD Code) Assessment Notes Treat ment Notes Treatment Clinical Notes 01/31/2025 Osteoporosis screening (ICD-10 - Z13.820) 01/31/2025 Vitamin D deficiency (ICD-10 - E55.9) 01/31/2025 Post menopausal syndrome (ICD-10 - Z78.0) Plan Of Treatment Pending Test Test Name Order Date BONE DENSITY DEXA 01/31/2025 Next Appt Details Provider Name:Luis Stoner , 07/31/2025 10:00:00 AM, [address] [place] [address] [place], [address], Progress Notes * Brianne BRIDGES LDOB: (64 yo F)Acc No.[id number]:01/31/2025 Patient: Brianne GUEVARA :1960 A ge:64 Y S ex:Female Address:[facility] [place], [address] Subjective: * Chief Complaints: * N ew Bone Density Order * Medical History: * Surgical History: * Hospitalization/Major Diagno stic Procedure: * Medications: Objective: * Vitals: * Physical Examination: Assessment: * Assessment: 1. O steoporosis screening - Z13.820 2 . V itamin D deficiency - E55.9 3 . P ost menopausal syndrome - Z78.0 Plan: * Treatment: 2. V itamin D deficiency I maging: BONE DENSITY DEXA 3. P ost menopausal syndrome I maging: BONE DENSITY DEXA * Procedure Codes: * true * Date: Generated for Nayla hanna/Leonel/Claudia on: 06/30/2024 08:01 AM EST
--- OUTSIDE RECORDS SUMMARY | 2025-04-29 05:00 | XMS_ITS ---
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 Luis Stoner III Primary Care Provider [phone] Allergies Allergen (clinical drug ingredient) Drug/Non Drug Allergy documented on EMR Reaction Allergy Type Onset Date Status No Known Drug Allergy Unknown Drug Allergy Active REASON FOR VISIT Follow up Medications Medication SIG (Take, Route, Frequency, Duration) [...] a day prn muscle spasm 10/18/2023 Active Lidocaine 5 % External Active Social History Tobacco Use: Social History [...] Additional Findings: Tobacco non-user Ex-cigaret te smoker Vital Signs Temperature 97.2 degrees Fahrenheit 04/29/20 25 Blood pressure systolic 144 mm Hg 04/29/20 Blood pressure diastolic 82 mm Hg 025 Heart Rate 89 /min 04/29/2025 Height 62 in 04/29/2025 Weight 136 lbs 04/29/2025 BMI 24.87 kg/m2 04/29/2025 Encounters Encounter Location Date Provider Diagnosis Luis Stoner III, MD [address] [place] [address] [place] [address] 04/29/2025 Luis Stoner Anxiety, generalized F41.1 ; Vitamin D deficiency E55.9 ; Hypercholesteremia E78.00 ; GERD (gastroesophageal reflux disease) K21.9 ; Irregular heart rate I49.9 and Chest pain R07.9 Assessments Encounter Date Diagnosis (ICD Code) Assessment Notes Treat ment Notes Treatment Clinical Notes 04/29/2025 Anxiety, generalized (ICD-10 - F41.1) She was referred to mental health. If this worsens she will return to the office and we will discuss sertraline. 04/29/2025 Vitamin D deficiency (ICD-10 - E55.9) 04/29/2025 Hypercholesteremia (ICD-10 - E78.00) 04/29/2025 GERD (gastroesophage al reflux disease) (ICD-10 - K21.9) 04/29/2025 Irregular heart rate (ICD-10 - I49.9) 04/29/2025 Chest pain (ICD-10 - R07.9) Plan Of Treatment Medication Medication Name Sig [...] twice a day prn muscle spasm 10/18/2023 Lidocaine 5 % External Pending Test Test Name Order Date PROFILE, FASTING (COMPREHENSIVE METABOLI C) 04/29/2025 CBC w DIFF 04/29/2025 Stress Test 04/29/2025 Holter Monitor 04/29/2025 Lipid Panel 04/29/2025 Vitamin D 25-OH Total 04/29/2025 ECG 12 lead EKG 04/29/2025 Next Appt Details Provider Name:Luis Stoner , 07/31/2025 10:00:00 AM, [address] [place] [address] [place] A[place]IN, LAURYN JOE, [address], Progress Notes * Brianne BRIDGES LDOB: (64 yo F)Acc No.[id number]:04/29/2025 Progress Notes Patient: Brianne GUEVARA Provider: Lucy Stoner MD :1960 A ge:64 Y S ex:Female Date:04/29/2025 Address:[address] [place], [place] [address]T[place] [id number] Subjective: * Chief Complaints: * 1 . Follow up. * HPI: C OVID-19 Screening: back same, got a couselor marilcellil, no meds, shrink wants a card consoult, she feels tachy. Questions H ave you had any new [...] appetite d enies.?Diarrhea d enies. H eartburn d enies. N ausea d enies. R ectal bleeding?denies. V omiting d enies. H ematology: bruising [...] pain d enies. P sychiatric: Depressed mood d enies. * Medical History: V itamin D deficiency, GERD (gastroesophageal reflux disease), L5-S1 radiculopathy, Hyperlipidemia, Former smoker 1990, Tubular adenoma 2010, Gastritis 2010, Internal hemorrhoids 2010, DJD right knee, L5-S1 pars defect, Spondylolisthesis lumbar spine, , Dysfunction of the sphincter of Oddi. * Surgical History: W isdom teeth extractions , x 2 , Cholecystectomy , Right knee arthroscopy , Upper endoscopy and colonoscopy, 1 tubular adenoma,[facility], Dr. Luciano 2019 analgesic injections lumbar spine prior near [place] [facility] , Lumbar spine fusion 02/02/2023, No history . * Hospitalization/Major Diagno stic Procedure: N o history . * Family History: F ather: 59 yrs, [...] grandson and well and healthy granddaughter. 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 Her last mammogram in August 2020 was normal. She is to [place]. * Medications: T aking Meclizine HCl 25 MG Tablet Chewable 1 tablet Orally Three times a day prn vertigo , Taking Vitamin D3 50 MCG (1999) Tablet TAKE 1 TABLET BY MOUTH EVERY DAY , Taking Omeprazole 20 MG Capsule Delayed Release 1 capsule 30 minutes before morning meal Orally Once a day , Taking Cyclobenzaprine HCl 5 MG Tablet 1 tablet Orally twice a day prn muscle spasm , Taking Lidocaine 5 % Patch External , Medication List reviewed and reconciled with the patient * Allergies: N o Known Drug Allergy. Objective: * Vitals: H t: 62, Wt: 136, BMI:24.87, BP: 144/82, HR: 89, Temp: 97.2, Wt-k.69. * P ast Orders: I maging:XR DEXA axial skeleton (Order Date - 02/19/2025) (Performed Date - 02/19/2025) * Examination: G eneral Examination: GENERAL APPEARANCE: p leasant, well nourished, well developed, in no acute distress, calm and relaxed. HEAD: a traumatic, normocephalic. EYES: e isauro, [...] LUNGS: c lear to auscultation . BREASTS: no masses palpable bilaterally. ABDOMEN: b owel sounds normal, no ascites, no organomegaly, no mass. RECTAL EXAM: n ot examined. MUSCULOSKELETAL: e xtremities unremarkable, no clubbing, cyanosis or edema. PERIPHERAL PULSES: n ormal. NEUROLOGIC: a lert and oriented, cranial nerves 2-12 grossly intact, deep tendon reflexes 2+ symmetrical, motor strength normal upper and lower extremities, sensory exam intact. PSYCH: a lert, oriented. Assessment: * Assessment: 1. A nxiety, generalized - F41.1 N otes :She was referred to mental health. If this worsens she will return to the office and we will discuss sertraline. 2 . V itamin D deficiency - E55.9 3 . H ypercholesteremia - E78.00 4 . G ERD (gastroesophageal reflux disease) - K21.9 5 .?Irregular heart rate - I49.9 6 . C hest pain - R07.9 Plan: * Treatment: 2. V itamin D deficiency L AB: PROFILE, FASTING (COMPREHENSIVE METABOLIC) L AB: CBC w DIFF L AB: Lipid Panel L AB: Vitamin D 25-OH Total 3. H ypercholesteremia L AB: PROFILE, FASTING (COMPREHENSIVE METABOLIC) L AB: CBC w DIFF L AB: Lipid Panel L AB: Vitamin D 25-OH Total 4. G ERD (gastroesophageal reflux disease) L AB: PROFILE, FASTING (COMPREHENSIVE METABOLIC) L AB: CBC w DIFF L AB: Lipid Panel L AB: Vitamin D 25-OH Total 5. I rregular heart rate I maging: Stress Test I maging: Holter Monitor I maging: ECG 12 lead EKG 6. C hest pain I maging: Stress Test I maging: Holter Monitor I maging: ECG 12 lead EKG 7. O thers Continue Meclizine HCl Tablet Chewable, [...] twice a day prn muscle spasm.? * Images: * The named appointment provid er may or may not be the originator of this progress note, and it is not deemed complete until electronically signed by the appointment provider. Sign off status: Pending * Provider: Lucy Stoner MD Date: 06/29/2024 Generated for Nayla hanna/Leonel/Isaacitting on: 06/30/2024 08:01 [...] in no acute distress, calm and relaxed HEAD: atraumatic, normocep halic EYES: eomi, perrla, [...] lesion s, anicteric PERIPHERAL PULSES: normal BREASTS: no masses palpable b ilaterally MUSCULOSKELETAL: extremities unremark able, no clubbing, cyanosis or edema LYMPH NODES: no enlarged lymph no angélica,spleen normal RECTAL EXAM: not examined PSYCH: alert, oriented ORAL CAVITY: normal, unremarkable
--- NOTE | 2025-04-30 07:58 | ECG_ITS ---
Test Reason : 149.9 r07.9 Blood Pressure : */* mmHG Vent. Rate : 88 BPM Atrial Rate : 88 BPM P-R Int : 152 ms QRS Dur : 78 ms QT Int : 348 ms P-R-T Axes : 50 11 32 degrees QTcB Int : 421 ms Sinus rhythm with occasional Premature ventricular complexes Otherwise normal ECG No previous ECGs available Referred By: Luis Stoner Electronically Signed By: Elier Fowler
--- OUTSIDE RECORDS SUMMARY | 2025-04-30 08:00 | XMS_ITS | Patient Health Record ---
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 Name Role Phone Luis Stoner MD Primary Care Provider Unavailab Luis Avendano Unavailable [phone] Allergies Allergen (clinical drug ingredient) Drug/Non Drug Allergy documented on EMR Reaction Allergy Type Onset Date Status codeine codeine (uncoded) upset stomach Allergy Active Reason For Referral No Information Medications Medication SIG (Take, Route, Frequency, Duration) Notes Start Date End Date Status Turmeric 500 MG Capsule 2tablets Orally once a day Active Celecoxib 200 MG Capsule TAKE 1 CAPSULE BY MOUTH EVERY DAY Oral; Duration: 30 Active Vitamin D3 50 MCG (1999 UT) Tablet TAKE 1 TABLET BY MOUTH EVERY DAY Diagnosis Unavailable Oral; Duration: 30 Active Lidocaine 5 % Patch APPLY 1 PATCH TO SKI N LEAVE ON FOR 12 HOURS THEN OFF FOR 12 HOURS Diagnosis Unavailable External; Duration: 30 Active Immunizations Vaccine Route Administration Date Status Comme nts Influenza Unknown 02/27/2022 Administered Social History Social History Additional Details Category Social Info Options Details Miscellaneous: Marital status: 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 Section Notes: She does not smoke, and uses only occasional alcohol She does not smoke, and uses only occasional alcohol She does not smoke, and uses only occasional alcohol She does not smoke, and uses only occasional alcohol She does not smoke, and uses only occasional alcohol Problems Problem Type SNOMED Code ICD Code Onset Dates Problem Status W/U Status Risk Notes Problem Screening for malignant neoplasm of colon (413824654) Encounter for screening for malignant neoplasm of colon (Z12.11) Active confirmed Problem History of adenomatous polyp of colon (927198568) History of adenomatous polyp of colon (Z86.010) Active confirmed Problem History of polyp of colon (situation) (789162475) Personal history of colonic polyps (Z86.010) Active confirmed Problem Screening for malignant neoplasm of rectum (272907805) Encounter for screening for malignant neoplasm of rectum (Z12.12) Active confirmed Problem Epigastric pain (79796379) Abdominal pain, epigastric (R10.13) Active confirmed Problem Preprocedural examination (946046121026102) Preprocedural examination (Z01.818) Active confirmed Problem Diverticulosis of sigmoid colon (512751117) Diverticulosis of sigmoid colon (K57.30) Active confirmed Plan Of Treatment Pending Test Test Name Order Date US ABD 02/27/2013 Future Test Test Name Order Date COLONOSCOPY 06/15/2016 COLONOSCOPY 03/01/2022 Insurance Providers Payer Name Payer Address Payer Phone Subscriber Number Group Number Insured Name Patient Relationship to Insured Coverage Start Date Coverage End Date [facility] [address] [place] [phone] [id number] LYNDA LEO Self - patient is the [...]
--- OUTSIDE RECORDS SUMMARY | 2025-04-30 08:01 | XMS_ITS | Clinical Summary ---
Author Organization [facility] Address [address] [place] [address] Phone Care Team Providers Care Senior Statistician Name Role Phone Luis Stoner MD Primary Care Provider [phone] Allergies Active Allergy Reactions Criticality Noted Date [...] as directed by . 30 each 1 04/29/20 25 Active Problems Problem Noted Date Diagnosed Date [...] I reviewed the lumbar spine CT at [facility] today which shows bridging bone through both [...] Encounters Date Type Department Care Team Description 02/27/2025 Telephone Neurosurgery [place] - [address] [place] [address] Isidra Keating MA from Last 3 Months Immunizations Immunization Administration Dates Next Due Influenza trivalent, 0.5mL, preservative free (Fluarix; FluLaval; Fluzone) ages 6mo and older (Afluria) 3 years and older 01/15/2019,02/11/2018,01/22/2017,2014,02/03/2014,02/14/2013,02/21/2012,1 RSV, bivalent, protein subun it RSVpreF, 0.5mL, Preservative Free (Arexvy) 50yo and older 05/20/2023 Tdap Tetanus diptheria acell ular pertussis (Boostrix; Adacel) 7yo and older 03/26/2018,03/05/2015,02/03/2014 Zoster recombinant (Shingrix ) 19yo and older 06/07/2024,01/27/2024 Surgical History Surgery Date Site/Laterality Comments TONSILLECTOMY ADENOIDECTOMY, BILATERAL MYRINGOTOMY AND TUBES PROCEDURE: GA TONSILLECTOMY & ADENOIDECTOMY <AGE 12 CHOLECYSTECTOMY PROCEDURE: HISTORICAL CHOLECYSTECTOMY WISDOM TOOTH EXTRACTION PROCEDURE: HISTORICAL WISDOM TEETH EXTRACTION SECTION PROCEDURE: HISTORICAL DELIVERY; COMMENT: x2 KNEE ARTHROSCOPY Right PROCEDURE: GA ARTHROSCOPY AID TX SPINE&/FX KNEE W/O FIXJ COLONOSCOPY 11/07/2016 PROCEDURE: HISTORICAL COLONOSCOPY; COMMENT: sigmoid diverticulosis, internal hemorrhoids; repeat in 5 yrs; no report COLONOSCOPY 02/21/2011 PROCEDURE: HISTORICAL COLONOSCOPY; COMMENT: tubular adenoma-removed; no report (only path report) UPPER GASTROINTESTINAL ENDOSCOPY 02/22/2010 PROCEDURE: GA UPPER GI ENDOSCOPY PERFORMED; COMMENT: mild gastritis, [...] Last Done Comments Breast Cancer Screening 1960 Colorectal Cancer Screening: Colonoscopy 1960 Cervical Cancer Screening: HPV 1981 Pneumococcal Vaccine: 50+ Years (1 of 1 - PCV) 2010 Cholesterol Screening (Lipid Panel) 05/04/2022 HIV Screening 05/04/2022 Hepatitis C Screening 05/04/2022 Social Influencers of Health Screening 05/04/2022 Depression Screening 06/05/2024 COVID-19 Vaccine ( season) 2025 02/19/2024, 04/13/2023, 03/05/2022, Additional history exists Influenza Vaccine (#1) 2025 9, 02/11/2018, 01/22/2017, Additional history exists DTaP,Tdap,and Td Vaccines (4 - Td or Tdap) 03/26/2028 03/26/2018, 03/05/2015, 02/03/2014 RSV Immunization Adult Patients Completed 05/20/2023 Zoster Vaccines Completed 06/07/2024, 01/27/2024 HIB Vaccines [...] on patient's age to complete this topic Insurance [facility] [address] [place] [address] Care Teams Senior Statistician Relationship Specialty [place] [address] [place] [address] [address] [place] [address] PCP - General 10/18/22
--- OUTSIDE RECORDS SUMMARY | 2025-04-30 08:01 | XMS_ITS | Patient Health Record ---
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 Luis Stoner III Primary Care Provider Allergies Allergen (clinical drug ingredient) Drug/Non Drug Allergy documented on EMR Reaction Allergy Type Onset Date Status No Known Drug Allergy Unknown Drug Allergy Active Results Component Value Reference Range Notes Complete Blood Count Auto Di ff Reviewed date:07/24/2024 03:46:22 PM Interpretation: Performing Lab:[facility], [address] [place] [phone] Notes/Report: White Blood Count 6.4 4.8-10.8 X10*3/uL [...] NRBC Abs Auto 0.000 0.0-0.012 X10*3/uL Comprehensive [place]. Panel Fa st Reviewed date:07/24/2024 03:46:22 PM Interpretation: Performing Lab:[facility], [address] [place] [phone] Notes/Report: Sodium 142 135-145 mmol/L Potassium 3.8 [...] Magnesium Reviewed date:07/24/2024 03:46:22 PM Interpretation: Performing Lab:[facility], [address] [place] [phone] Notes/Report: Magnesium 2.1 1.6-2.6 mg/dL Lipid Panel Reviewed date:07/24/2024 03:46:22 PM Interpretation: Performing Lab:[facility], [address] [place] [phone] Notes/Report: Triglycerides 69 <150 mg/dL Desirable Triglyceride: [...] Total Reviewed date:07/24/2024 03:46:22 PM Interpretation: Performing Lab:[facility], [address] [place] [phone] Notes/Report: Vitamin D 25-OH Total 59.3 >30 [...] 0.2 - 1.3 BLD 50 Negative - Pap Smear Reviewed date:11/10/2024 09:34:15 AM Interpretation: Performing Lab:[facility], [address] [place] [address], [place] [address] Notes/Report: --- Name: YulianaBrianne Age/Sex: 64/F : 1960 Unit#: [id number] Attend Dr: Thuy Schumacher CNM Re10/29/24 Status : [facility] Location: [facility] Disch: --- SPEC : [id number] RECD : 10/29/24-1339 STATUS: REBECCA ANDERSON NUM: [id number] [place]: 10/29/24-0[address] [facility] [address]: Thuy Schumacher CNM ENTERED: 10/29/24-13 49 SP TYPE: Pap Smr OT DR: Luis Stoner MD ORDERED: Pap Smear [...] and HPV testing will be performed at [facility] (CLIA #[id number]), [address] [place] [address]. Testing for H PV was performed using the F[employer] SHERLEY 6800 system. The presence of HPV in the [...] detected. All professional services are performed by [facility] ([address] [place] [address], [place] [address]; h: [phone]; CLIA #[id number]). The PAP Test is a screening procedure with the inherent possibility of both false negative and false positive results. Results should be interpreted in the context of historic and current clinical findings. Reliability of the PAP Test is enhanced by performing the test on a regular repetit kaiser basis. CONTINUED ON NEXT PAGE --- Name: Brianne Bridges Love Age/Sex: 64/F : 1960 Unit#: [id number] Attend Dr: Thuy Schumacher CNM Re10/29/24 Status : DEP REF Location: [facility] Disch: --- SPEC : [id number] REC STATUS: REBECCA ANDERSON NUM: [id number] MAYNOR: 10/29/[address] [facility] [address]: Thuy Schumacher CNM ENTERED: 10/29/24 49 SP TYPE: Pap Smr OTHR DR: Luis Stoner MD ORDERED: Pap Smear Copies To: Luis Stoner MD [address] [facility], [address] [place] [address] Thuy Schumacher CNM [facility] [address] [place] [address] --- Signed (signature on file) RONAK Sánchez (ASCP) 11/01/24 1026 --- END OF REPORT HPV High risk Reviewed date:03/17/2025 09:36:11 AM Interpretation: Performing Lab:[facility], [address] [place] [phone] Notes/Report: HPV High Risk Negative Negative HPV Genotype 16 Negative Negative HPV Genotype 18 Negative Negative HPV testing performed at [facility] (CLIA #[id number]), [address] [place] [address]. Testing for HPV was performed using the [employer] SHERLEY LocoMobi0 system. The presence of HPV in the [...] result indicates such sequences were not detected. MM tomosynthesis screening B I Reviewed date:11/10/2024 09:34:15 AM Interpretation: Performing Lab: Notes/Report: [facility] [address] [place] [address] Mammography Report Signed Patient: Brianne Bridges MR#: [id number] : 1960 Acct:[id number] Age/Sex: 64 / F ADM Date: 11/02/24 Loc: .MAMMO Attending Dr: Luis Stoner MD Ordering Physician: Luis Stoner MD Results: 1Negativ e Date of Service: 11/02/24 Follow Up: 1 Year From [facility] Mammogram Procedure(s): MM tomosynthesis screening BI Accession Number(s): [id number] cc: Luis Stoner MD EXAMINATION: MM SCREENING [...] OV> 11/09/24 1637 DD/ 9 TD/TT: 11/02/24919 Machine Carton Marker: [facility] [address] [place], [place] [address] Mammography Report Signed Patient: Brianne Bridges MR#: [id number] : 1960 Acct:[id number] Age/Sex: 64 / F ADM Date: 11/02/24 Loc: HO.MAMMO Attending Dr: Luis Stoner MD Ordering Physician: Lusi Stoner MD Results: 1Negativ e Date of Service: 11/02/24 Follow Up: 1 Year From Orig inal Mammogram Procedure(s): MM tomosynthesis screening BI Accession Number(s): [id number] cc: Luis Stoner MD EXAMINATION: MM SCREENING [...] Moser DO in OV> 11/09/24 1637 DD/ TD/TT: 11/02/24919 Machine Carton Marker: XR DEXA axial skeleton Reviewed date:03/17/2025 09:36:11 AM Interpretation: Performing Lab: Notes/Report: [facility] [address] [place], [place] [address] Mammography Report Signed Patient: Brianne Bridges MR#: [id number] : 1960 Acct:[id number] Age/Sex: 64 / F ADM Date: 02/19/25 Loc: HO.MAMMO Attending Dr: Luis Stoner MD Ordering Physician: Luis Stoner MD Results: Date of Service: 02/19/25 Follow Up: Procedure(s): XR DEXA axial skeleton Accession Number(s): [id number] cc: Luis Stoner MD Reason For Exam: Z78.0 MENOPAUSAL STATE EXAMINATION: DXA BONE DENSITY AXIAL HISTORY: Z78.0 MENOPAUSAL STATE TECHNIQUE: [email or web address] Dual energy absorptiometry (DEXA) of the lumbar [...] of the [employer] [place] for Metabolic Bone Disease, a World Health Organization (WHO) Collaborating Center. Electronically signed by: Luis Alejandra MD 02/19/2025 09:15 AM EDT RP Dictated By: Luis Alejandra MD Signed By: <Electronically signed by Luis Alejandra MD in OV> 02/19/25914 DD/ 3 TD/TT: 02/19/25899 Machine Carton Marker: [facility] [address] [place] [address] Mammography Report Signed Patient: Brianne Bridges MR#: [id number] : 1960 Acct:[id number] Age/Sex: 64 / F ADM Date: 02/19/25 Loc: HO.MAMMO Attending Dr: Luis Stoner MD Ordering Physician: Luis Stoner MD Results: Date of Service: 02/19/25 Follow Up: Procedure(s): XR DEX A axial skeleton Accession Number(s): [id number] cc: Luis Stoner MD Reason For Exam: Z78 .0 MENOPAUSAL STATE EXAMINATION: DXA BON E DENSITY AXIAL HISTORY: Z78.0 MENOPAUSAL STATE TECHNIQUE: [email or web address] Dual energy absorptiometry (DEXA) of the lumbar [...] of the [employer] [place] for Metabolic Bone Disease, a World Health Organization (WHO) Collaborating Center. Electronically sim d by: Luis Alejandra MD 02/19/2025 09:15 AM EDT Dictated By: Luis Alejandra MD Signed By: <Electronically signed by Luis Alejandra MD in OV> 02/19/25914 DD/ 3 TD/TT: 02/19/25899 Machine Carton Marker: Reason For Referral No Information Medications Medication [...] 10/18/2023 Active Lidocaine 5 % External Active Immunizations Vaccine Route Administration Date Status [...] Problem Status W/U Status Risk Notes Problem 2802366 Former smoker (Z87.891) Active confirmed We have formulated a plan to prevent relapse in times of stress or illness. Problem 624829795 Lumbar radiculopathy (M54.16) Active confirmed Her back pain is currently stable and improving slowly. The fusion is healing. The pain is much improved Problem Gastroesophageal reflux disease (744689911) GERD (gastroesophageal reflux disease) (K21.9) Active confirmed She attributes her symptoms of reflux to dysfunction of the sphincter of Oddi. The discomfort is well controlled on current medication. Problem Vitamin D deficiency (29555050) Vitamin D deficiency (E55.9) Active confirmed Vitamin D supplements. Problem Cardiac arrhythmia (183622512) Irregular heart rate (I49.9) Active confirmed Problem 225850206256920 Spondylolisthesi s of lumbar region (M43.16) Active confirmed She is being seen by physiatry to stand having injections in the lumbar spine. Problem hypercholesterolemi a (disorder) (82921306) Hypercholesteremi a (E78.00) Active confirmed Her total cholesterol is within her target range. Her weight is stable and in the normal range. We have discussed her diet and nutrition today. Problem 549725886 Adenomatous poly p (D36.9) Active confirmed She will undergo colonoscopy at five-year intervals. 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 She will continue on current therapy for her low back pain Problem 09272245 Anxiety, generalized (F41.1) Active confirmed She was referred to mental health. If this worsens she will return to the office and we will discuss sertraline. Vital Signs Heart Rate 89 /min 04/29/2025 Temperature 97.2 degrees Fahrenheit 04/29/2025 Blood pressure diastolic 82 mm Hg 04/29/2025 Height 62 in 04/29/2025 Blood pressure systolic 144 mm Hg 04/29/2025 Weight 136 lbs 04/29/2025 BMI 24.87 kg/m2 04/29/2025 Encounters Encounter Location Date Provider Diagnosis Luis Stoner III, MD [address] [place] [address] DR [place], [place] [address] 04/29/2025 Luis Stoner Anxiety, generalized F41.1 ; Vitamin D deficiency E55.9 ; Hypercholesteremia E78.00 ; GERD (gastroesophageal reflux disease) K21.9 ; Irregular heart rate I49.9 and Chest pain R07.9 Luis Stoner III, MD [address] [place] [address] [place] [address] 07/29/2024 Luis Stoner Vitamin D deficiency E55.9 ; Hypercholesteremia E78.00 ; GERD (gastroesophageal reflux disease) K21.9 ; Spondylolisthesis of lumbar region M43.16 ; Lumbar radiculopathy M54.16 and Former smoker Z87.891 Luis Stoner III, MD [address] [place] [address] [address] [place] [address] 01/27/2025 Luis Stoner Osteoporosis screeni ng Z13.820 ; Anxiety, generalized F41.1 ; Former smoker Z87.891 ; Vitamin D deficiency E55.9 ; Hypercholesteremia E78.00 ; Lumbar radiculopathy M54.16 and Pars defect M43.00 Luis Stoner III, MD [address] [place] [address] [place] [address] 01/31/2025 Luis Stoner Osteoporosis screeni ng Z13.820 ; Vitamin D deficiency E55.9 and Post menopausal syndrome Z78.0 Assessments Encounter Date Diagnosis (ICD Code) Assessment Notes Treat ment Notes Treatment Clinical Notes 04/29/2025 Anxiety, generalized (ICD-10 - F41.1) She was referred to mental health. If this worsens she will return to the office and we will discuss sertraline. 07/29/2024 Vitamin D deficiency (ICD-10 - E55.9) [...] 01/31/2025 Osteoporosis screeni ng (ICD-10 - Z13.820) 04/29/2025 Vitamin D deficiency (ICD-10 - E55.9) 07/29/2024 GERD (gastroesophage al reflux disease) (ICD-10 - K21.9) She attributes her symptoms of reflux to dysfunction of the sphincter of Oddi. The discomfort is well controlled on current medication. 01/27/2025 Former smoker (ICD-1 0 - Z87.891) We have formulated a plan to prevent relapse in times of stress or illness. 01/31/2025 Vitamin D deficiency (ICD-10 - E55.9) 04/29/2025 Hypercholesteremia (ICD-10 - E78.00) 07/29/2024 Spondylolisthesis of lumbar region (ICD-10 - M43.16) She is being seen by physiatry to stand having injections in the lumbar spine. 01/27/2025 Vitamin D deficiency (ICD-10 - E55.9) Vitamin D supplements. 01/31/2025 Post menopausal synd reggie (ICD-10 - Z78.0) 04/29/2025 GERD (gastroesophage al reflux disease) (ICD-10 - K21.9) 07/29/2024 Lumbar radiculopathy (ICD-10 - M54.16) Her back pain is currently stable and improving slowly. The fusion is healing. The pain is much improved 01/27/2025 Hypercholesteremia (ICD-10 - E78.00) Her total cholesterol is within her target range. Her weight is stable and in the normal range. We have discussed her diet and nutrition today. 04/29/2025 Irregular heart rate (ICD-10 - I49.9) 07/29/2024 Former smoker (ICD-1 0 - Z87.891) We have formulated a plan to prevent relapse in times of stress or illness. 01/27/2025 Lumbar radiculopathy (ICD-10 - M54.16) Her back pain is currently stable and improving slowly. The fusion is healing. The pain is much improved 04/29/2025 Chest pain (ICD-10 - R07.9) 01/27/2025 Pars defect (ICD-10 - M43.00) This [...] 07/15/2022 PROFILE, FASTING (COMPREHENSIVE METABOLI C) 02/26/2024 PROFILE, FASTING (COMPREHENSIVE METABOLI C) 04/29/2025 MAGNESIUM 07/15/2022 MAGNESIUM 02/26/2024 LIPID PANEL 07/15/2022 LIPID PANEL 01/17/2023 CBC w DIFF 04/29/2025 CBC w DIFF 07/15/2022 CBC w DIFF 07/07/2021 CBC w DIFF 01/17/2023 BONE DENSITY DEXA 01/27/2025 BONE DENSITY DEXA 01/31/2025 Stress Test 04/29/2025 Holter Monitor 04/29/2025 VITAMIN D 25-OH TOTAL 01/17/2023 VITAMIN D 25-OH TOTAL 07/15/2022 CBC WITH AUTO DIFF 02/26/2024 CBC WITH AUTO DIFF 04/20/2023 Lipid Panel 02/26/2024 Lipid Panel 04/29/2025 Lipid Panel 04/20/2023 Vitamin D 25-OH Total 04/20/2023 Vitamin D 25-OH Total 02/26/2024 Vitamin D 25-OH Total 04/29/2025 ECG 12 lead EKG 04/29/2025 XR lumbar spine 2-3V 08/15/2023 XR sacrum coccyx min 2V 08/15/2023 US pelvic and transvaginal 01/24/2023 Next Appt Details Provider Name:Luis Stoner , 07/31/2025 10:00:00 AM, [address] [place] [address] , [place] Vinh, [place], [address], Insurance Providers Payer Name Payer Address Payer Phone Subscriber Number Group Number Insured Name Patient Relationship to Insured Coverage Start Date Coverage End Date [facility] [address] [place] [phone] [id number] Brianne Bridges Self - patient is the insured MEDICARE NGS [address] [place] [address] [id number] Brianne Bridges Self - patient is the insured 5 Medical (General) History Medical History History ICD Code Vitamin D deficiency E55.9 GERD (gastroesophageal reflux disease) K 21.9 L5-S1 radiculopathy Hyperlipidemia Former smoker 1990 Tubular adenoma 2010 Gastritis 2010 Internal hemorrhoids 2010 DJD right knee L5-S1 pars defect Spondylolisthesis lumbar spine Dysfunction of the sphincter of Oddi Surgical History Surgery Date(Month/Year) No history Lumbar spine fusion 02/02/20232019 analgesic injections elisha mbar spine prior near [place] spine and sports Upper endoscopy and colonoscopy, 1 tubul ar adenoma,[facility], Dr. Luciano 2010 Right knee arthroscopy Cholecystectomy x 2 [place] teeth extractions Hospitalization History Reason Date(Month/Year) No history
[2025-04-30 08:06] LABS: MANUAL DIFF FLAG NO
[2025-04-30 08:41] LABS: Hematocrit 39.0 % (37.0-47.0); Hemoglobin 13.1 g/dl (12.0-16.0); Imm Gran Abs Auto 0.01 X10*3/uL (0.00-0.03); Imm Gran Pct Auto 0.2 % (0.0-0.4); Lymphocytes Absolute Auto 1.9 X10*3/uL (1.2-4.9); Mean Corpuscular HGB Conc 33.6 g/dl (31.0-35.0); Mean Corpuscular Hemoglobin 32.6 pg (27.0-33.0); Mean Corpuscular Volume 97.0 fL (80.0-98.0); NRBC Abs Auto 0.000 X10*3/uL (0.0-0.012); NRBC Pct Auto 0.0 /100WBC (0.0-0.2); Platelet Count 193 X10*3/uL (160-400); Red Blood Count 4.02 X10*6/uL (4.20-5.50); White Blood Count 5.9 X10*3/uL (4.8-10.8)
[2025-04-30 09:09] LABS: Alanine Aminotransferase 18 U/L (0-31); Albumin Level 4.6 g/dL (3.5-5.0); Alkaline Phosphatase 71 U/L (39-117); Anion Gap 12 (12-20); Aspartate Amino Transferase 24 U/L (5-31); Blood Urea Nitrogen 16 mg/dL (9-16); Calcium 9.4 mg/dL (8.4-10.2); Carbon Dioxide 27 mmol/L (22-29); Chloride 105 mmol/L (96-108); Cholesterol 237 mg/dL (<200); Estimated Glomerular Filt Rate > 60; HDL Cholesterol 59 mg/dL (>40); Potassium 3.6 mmol/L (3.3-5.1); Sodium 140 mmol/L (135-145); Total Protein 7.2 g/dL (6.5-8.0); Triglycerides 89 mg/dL (<150)
== END 2025-04-30 07:52 | disposition home or self-care (01) ==
LOC: HO.LAB 07:51
PROVIDERS: Visit Provider Internal Medicine Medical Oncology
DX: F41.1 Generalized anxiety disorder (principal); E55.9 Vitamin D deficiency, unspecified; E78.00 Pure hypercholesterolemia, unspecified; K21.9 Gastro-esophageal reflux disease without esophagitis; I49.9 Cardiac arrhythmia, unspecified; R07.9 Chest pain, unspecified
CPT/HCPCS: 36415; 80053; 80061; 82306; 85025; 93005

== ENCOUNTER → 2025-04-30 07:58 | Outpatient (BNV) | payer MEDICARE, SELFPAY | PROVIDERS: Visit Provider Internal Medicine Cardiovascular Disease | DX: I49.3 Ventricular premature depolarization (principal) | CPT/HCPCS: 93010 ==

== ENCOUNTER → 2025-06-02 07:51 | Outpatient (REF) | payer MEDICARE, SELFPAY ==
--- OUTSIDE RECORDS SUMMARY | 2023-12-26 06:15 | XMS_ITS ---
Author Organization Luis Stoner III, MD Address [address] [place] [address] [place] [address] Care Team Providers Care Post Graduate Intern Name Role Phone Dr. Luis Stoner III Primary Care Provider [phone] Allergies Allergen (clinical drug ingredient) Drug/Non Drug [...] Date Provider Diagnosis Luis Stoner III, MD [address] [place] [address] DR [place] [phone] 12/26/2023 Luis Stoner Lumbar paraspinal mu scle [...] She will remain under the care of ASSOCIATE PROFESSOR OF VIOLIN. Plan Of Treatment Medication Medication Name Sig [...] Reason: Office visit Provider Name:Luis Stoner , 06/17/2025 09:45:00 AM, [address] [place] [address] [place], [place], [address], Provider Name:Luis Stoner , 07/31/2025 10:00:00 AM, [address] [place] [address] [place], [place], [address], Progress Notes * Brianne BRIDGES LDOB: (63 yo F)Acc No.[id number]:12/26/2023 Progress Notes Patient: Brianne Adkins Provider: Lucy Stoner MD :1960 A ge:63 Y S ex:Female Date:12/26/2023 Address:[address] [place], [place] [id number] Subjective: * Chief Complaints: * L umbar radiculopathyLumbar spondylolisthesis.Hyperlipidemia * HPI: C OVID-19 Screening: This is a scheduled visit to followup after her neurosurgery. She has had a fusion and has been back for a postoperative visit with Dr. Manjarrez's assistant inventory manager. Her surgery was February 02, 2023. A [...] arthroscopy Upper endoscopy and colonoscopy, 1 tubular adenoma,[facility] [place]. Luciano analgesic injections lumbar spine prior near [place] spine and sports Lumbar spine fusion 02/02/2023 * Hospitalization/Major Diagno stic Procedure: D enies Past Hospitalization * Family History: F ather: 59 yrs, Lung cancer, diagnosed with Cancer, HTN. M other: alive 85 yrs, copd,chf,ckd,pad,dm2,, diagnosed with Hyperlipidemia, HTN, DM, CVD. C hildren: alive. S on(s): alive. D aughter(s): alive. S iblings: , diagnosed with HTN. [...] grandson and well and healthy granddaughter. Her adobe developer is Dr. Torres at [facility]. Her last mammogram in August 2020 was [...] >40 mg/dL) 57 (Ref Range: mg/dL) * Lab:[facility]. P[facility] l Fast * Order Date 12/22/2023 07/11/2023 01/20/2023 [...] She will remain under the care of ASSOCIATE PROFESSOR OF VIOLIN. Plan: * Treatment: 2. O thers Continue Vitamin D3 Tablet, 50 MCG (2000 UT), TAKE 1 TABLET BY MOUTH EVERY [...] MD Date: 0 12/26/2023 Generated for Nayla hanna/Leonel/Isaacitting on: 07:56 AM EST History and Physical Notes * [...]
--- OUTSIDE RECORDS SUMMARY | 2023-12-27 04:30 | XMS_ITS ---
Author Organization Luis Stoner III, MD Address [address] [place] [address] Care Team Providers Care Film Processing Utility Worker Name Role Phone Dr. Luis Stoner III Primary Care Provider REASON FOR VISIT needs new order for labs prior to annual exam Social History Sex Assigned At : Social History Observation Description Sex Assigned At Female Encounters Encounter Location Date Provider Diagnosis Luis Stoner III, MD [address] [place] [address] [place] [address] 12/27/2023 Luis Stoner Hypercholesteremia E 78.00 ; GERD (gastroesophageal reflux disease) K21.9 and Lumbar radiculopathy M54.16 Assessments Encounter Date Diagnosis (ICD Code) Assessment Notes Treat ment Notes Treatment Clinical Notes 12/27/2023 Hypercholesteremia (ICD-10 - E78.00) 12/27/2023 GERD (gastroesophage al reflux disease) (ICD-10 - K21.9) 12/27/2023 Lumbar radiculopathy (ICD-10 - M54.16) Plan Of Treatment Next Appt Details Provider Name:Luis Stoner , 06/17/2025 09:45:00 AM, [address] [place] [address] [place], [address], Provider Name:Luis Stoner , 07/31/2025 10:00:00 AM, [address] [place] [address] [place], [address], Progress Notes * Brianne BRIDGES LDOB: (63 yo F)Acc No.[id number]:12/27/2023 Patient: Brianne Adkins :1960 A ge:63 Y S ex:Female Address:[address] [place], [place] [address], [address] Subjective: * Chief Complaints: * N eeds new order for labs prior to annual exam * Medical History: * Surgical History: * Hospitalization/Major Diagno stic Procedure: * Medications: Objective: Assessment: * Assessment: 1. H ypercholesteremia - E78.00 2 . G ERD (gastroesophageal reflux disease) - K21.9?3. L umbar radiculopathy - M54.16 Plan: * Treatment: 2. G ERD (gastroesophageal reflux disease) L AB: PROFILE, FASTING (COMPREHENSIVE METABOLIC) L AB: CBC w DIFF L AB: Lipid Panel 3. L umbar radiculopathy L AB: PROFILE, FASTING (COMPREHENSIVE METABOLIC) L AB: CBC w DIFF L AB: Lipid Panel * Procedure Codes: * true * Date: Generated for Nayla hanna/Leonel/eTdanicasmitting on: 1 07:57 AM EST
--- OUTSIDE RECORDS SUMMARY | 2024-02-26 04:45 | XMS_ITS ---
Author Organization Luis Stoner III, MD Address [address] [place] [address] [place] [address] Care Team Providers Care Human Projectile Name Role Phone Dr. Luis Stoner III Primary Care Provider Allergies Allergen (clinical drug ingredient) Drug/Non Drug Allergy documented on EMR Reaction Allergy Type Onset Date Status No Known Drug Allergy Unknown Drug Allergy Active REASON FOR VISIT Lumbar radiculopathy, Recent lumbar surgery, GERD, Hyperlipidemia, Dysfunction of the sphincter of Oddi Medications Medication SIG (Take, Route, Frequency, Duration) Notes Start Date End Date Status Omeprazole 20 MG 1 capsule 30 minutes before morning meal Orally Once a day Active Meclizine HCl 25 MG 1 tablet Orally Thre e times a day prn vertigo 04/20/2023 Active Cyclobenzaprine HCl 5 MG 1 tablet Orally twice a day prn muscle spasm 10/18/2023 Active Vitamin D3 50 MCG (1999) TAKE 1 TABLE T BY MOUTH EVERY DAY Active Social History Tobacco Use: Social History [...] Non-User Ex-cigaret te smoker Vital Signs Temperature 97.0 degrees Fahrenheit 02/26/20 24 Blood pressure systolic 135 mm Hg 02/26/20 24 Blood pressure diastolic 79 mm Hg 024 Heart Rate 72 /min 02/26/2024 Height 62 in 02/26/2024 Weight 128 lbs 02/26/2024 BMI 23.41 kg/m2 02/26/2024 Encounters Encounter Location Date Provider Diagnosis Luis Stoner III, MD [address] [place] [address] 02/26/2024 Luis Stoner Vitamin D deficiency E55.9 ; Hypercholesteremia E78.00 ; GERD (gastroesophageal reflux disease) K21.9 and Lumbar radiculopathy M54.16 Assessments Encounter Date Diagnosis (ICD Code) Assessment Notes Treat ment Notes Treatment Clinical Notes 02/26/2024 Vitamin D deficiency (ICD-10 - E55.9) Vitamin D supplements. 02/26/2024 Hypercholesteremia (ICD-10 - E78.00) Her total cholesterol is within her target range. Her weight is stable and in the normal range. We have discussed her diet and nutrition today. 02/26/2024 GERD (gastroesophage al reflux disease) (ICD-10 - K21.9) She attributes her symptoms of reflux to dysfunction of the sphincter of Oddi. The discomfort is well controlled on current medication. 02/26/2024 Lumbar radiculopathy (ICD-10 - M54.16) Her back pain is currently stable and improving slowly. The fusion is healing. The pain is much improved Plan Of Treatment Medication Medication Name Sig Start Date Stop Date Notes Omeprazole 20 MG 1 capsule 30 minutes before morning meal Orally Once a day Meclizine HCl 25 MG 1 tablet Orally Thre e times a day prn vertigo 04/20/2023 Cyclobenzaprine HCl 5 MG 1 tablet Orally twice a day prn muscle spasm 10/18/2023 Vitamin D3 50 MCG (1999 [place]) TAKE 1 TABLE T BY MOUTH EVERY DAY Pending Test Test Name Order Date PROFILE, FASTING (COMPREHENSIVE METABOLI C) 02/26/2024 MAGNESIUM 02/26/2024 CBC WITH AUTO DIFF 02/26/2024 Lipid Panel 02/26/2024 Vitamin D 25-OH Total 02/26/2024 Next Appt Details Follow Up: As Scheduled, Kaitlin son: OV Provider Name:Luis Stoner , 06/17/2025 09:45:00 AM, [address] [place] [address] [place], [place], [address], Provider Name:Luis Stoner , 07/31/2025 10:00:00 AM, [address] [place] [address] [place], [place], [address], Progress Notes * Brianne BRIDGES LDOB: (63 yo F)Acc No.[id number]:02/26/2024 Progress Notes Patient: Brianne Adkins Provider: Lucy Stoner MD :1960 A ge:63 Y S ex:Female Date:02/26/2024 Address:[address] [place], [place] [id number] Subjective: * Chief Complaints: * L umbar radiculopathyRecent lumbar surgeryGERDHyperlipidemiaDysfunction of the sphincter of Oddi * HPI: C OVID-19 Screening: She returns for medical management. She recently had surgery on her lumbar spine to relieve severe lumbar radiculopathy. The pain is much improved and often not present. She has returned to all the activities of daily life. She continues to take omeprazole for dyspepsia. Her genetics nurse says he is treating dysfunction of the sphincter of Oddi. While taking omeprazole she feels much better. Her neurosurgeon has told her the bones have healed and her spinous now fused. She has no new complaints. Her blood work was reviewed with her in detail today. Questions H ave you experienced fever, chills, [...] Y es * ROS: G eneral/Constitutional: pain O ccasional low back pain, occasional upper abdominal discomfort after eating. C hills d enies. F atigue a dmits. F ever d enies.? E NT: Decreased hearing d enies. R espiratory: Cough d enies. C ardiovascular: Chest pain with exertion d enies. D yspnea on exertion?denies. S hortness of breath d enies. G astrointestinal: Constipation o ccasional. D ecreased appetite d enies. D iarrhea d enies. H eartburn d enies. N ausea d enies. R ectal bleeding d enies. V omiting d enies. H ematology: bruising d enies. p etechiae d enies. S wollen glands n one have been noted. G enitourinary: Frequent urination a t night. M usculoskeletal: Muscle aches d enies. P ainful joints d enies. S ciatica d enies. W eakness d [...] arthroscopy [place]oscopy and [place] [place] injections lumbar spine prior near [place] spine and sports Lumbar spine fusion 02/02/2023 * Hospitalization/Major Diagno stic Procedure: D enies Past Hospitalization * Family History: F ather: 59 yrs, Lung cancer, diagnosed with HTN, Cancer. M other: alive 85 yrs, copd,chf,ckd,pad,dm2,, diagnosed with HTN, DM, CVD, Hyperlipidemia. C yrisen: alive. S on(s): alive. D er(s): alive. S iblings: , diagnosed with HTN. [...] grandson and well and healthy granddaughter. Her distributor sales consultant is Dr. Torres at [facility]. Her last mammogram in August 2020 was normal. She is to [place]. * Medications: T akingVitamin D3 50 MCG (1999) Tablet TAKE 1 TABLET BY MOUTH EVERY DAY Meclizine HCl 25 MG Tablet Chewable 1 tablet Orally Three times a day prn vertigoOmeprazole 20 MG Capsule Delayed Release 1 capsule 30 minutes before morning meal Orally Once a dayCyclobenzaprine HCl 5 MG Tablet 1 tablet Orally twice a day prn muscle spasmMedication List reviewed and reconciled with the patientTaking Vitamin D3 50 MCG (1999 [place]) Tablet TAKE 1 TABLET BY MOUTH EVERY DAY Taking Meclizine HCl 25 MG Tablet Chewable 1 tablet Orally Three times a day prn vertigoTaking Omeprazole 20 MG Capsule Delayed Release 1 capsule 30 minutes before morning meal Orally Once a dayTaking Cyclobenzaprine HCl 5 MG Tablet 1 tablet Orally twice a day prn muscle spasmMedication List reviewed and reconciled with the patient * Allergies: N o Known Drug Allergyno[Allergies Verified] Objective: * Vitals: H t: 62, Wt: 128, BMI:23.41, BP: 135/79, HR: 72, Temp: 97.0, Wt-k.06. * P ast Orders: Lab:Lipid Panel * [...] mg/dL) 57 (Ref Range: mg/dL) * Lab:Comprehensive [place]. Pane l Fast * Order Date 12/22/2023 [...] X10*3/uL) 0.000 (Ref Range: 0.0-0.012 X10*3/uL) * Examination: G eneral Examination: GENERAL APPEARANCE: p leasant, well nourished, well developed, in no acute distress, calm and relaxed , woman. HEAD: a traumatic, normocephalic. EYES: e isauro, [...] xtremities unremarkable, no clubbing, cyanosis or edema, Healed extensive surgical incision over lumbar spine. PERIPHERAL PULSES: n ormal. NEUROLOGIC: a lert and oriented, cranial nerves 2-12 grossly intact, deep tendon reflexes 2+ symmetrical, motor strength normal upper and lower extremities, sensory exam intact. PSYCH: a lert, oriented. Assessment: * Assessment: 1. V itamin D deficiency - E55.9, Vitamin D supplements. 2 . H ypercholesteremia - E78.00, Her total cholesterol is within her target range. Her weight is stable and in the normal range. We have discussed her diet and nutrition today. 3 . G ERD (gastroesophageal reflux disease) - K21.9, She attributes her symptoms of reflux to dysfunction of the sphincter of Oddi. The discomfort is well controlled on current medication. 4 . L umbar radiculopathy - M54.16, Her back pain is currently stable and improving slowly. The fusion is healing. The pain is much improved Plan: * Treatment: 2. H ypercholesteremia L AB: PROFILE, FASTING (COMPREHENSIVE METABOLIC) L AB: MAGNESIUM L AB: CBC WITH AUTO DIFF L AB: Lipid Panel L AB: Vitamin D 25-OH Total 3. G ERD (gastroesophageal reflux disease) L AB: PROFILE, FASTING (COMPREHENSIVE METABOLIC) L AB: MAGNESIUM L AB: CBC WITH AUTO DIFF L AB: Lipid Panel L AB: Vitamin D 25-OH Total 4. O thers Continue Vitamin D3 Tablet, 50 MCG (2000 UT), TAKE 1 TABLET BY MOUTH EVERY DAY; C ontinue Meclizine HCl Tablet Chewable, 25 MG, 1 tablet, Orally, Three times a day prn vertigo; C ontinue Omeprazole Capsule Delayed Release, 20 MG, 1 capsule 30 minutes before morning meal, Orally, Once a day;?Continue Cyclobenzaprine HCl Tablet, 5 MG, 1 tablet, Orally, twice a day prn muscle spasm.? * Procedure Codes: * Preventive Medicine: Counseling: S moking/Tobacco Use Patient counseled on the dangers of tobacco use and urged to quit. 0 02/26/2024 * Follow Up: A s Scheduled (Reason: OV) * Images: * Sign off status: Completed true * Provider: Lucy Stoner MD Date: 0 02/26/2024 Generated for Nayla hanna/Leonel/Isaacitting on: 1 07:56 AM EST History and Physical Notes [...] in no acute distress, calm and relaxed , woman HEAD: atraumatic, normocep halic EYES: eomi, perrla, [...] unremark able, no clubbing, cyanosis or edema, Healed extensive surgical incision over lumbar spine LYMPH NODES: no enlarged lymph no angélica,spleen normal RECTAL EXAM: not examined PSYCH: alert, oriented ORAL CAVITY: normal, unremarkable
--- OUTSIDE RECORDS SUMMARY | 2024-04-12 05:50 | XMS_ITS ---
Author Organization Luis Stoner III, MD Address [address] [place] [address] Care Team Providers Care Pulvi Mixer Operator Name Role Phone Dr. Luis Stoner III Primary Care Provider [phone] REASON FOR VISIT Rx Request Medications Medication SIG (Take, Route, Fr equency, Duration) Notes Start Date End Date Status Meclizine HCl 25 MG 1 tablet Orally Thre e times a day prn vertigo for 7 days 04/20/2023 Activ e Social History Sex Assigned At : Social History Observation Description Sex Assigned At Female Encounters Encounter Location Date Provider Diagnosis Luis Stoner III, MD [address] [place] [address] [place] [address] 04/12/2024 Luis Stoner Plan Of Treatment Medication Medication Name Sig Start Date Stop Date Notes Meclizine HCl 25 MG 1 tablet Orally Thre e times a day prn vertigo for 7 days 04/20/2023 Next Appt Details Provider Name:Luis Stoner , 06/17/2025 09:45:00 AM, [address] [place] [address] [place], [address], Provider Name:Luis Stoner , 07/31/2025 10:00:00 AM, [address] [place] [address] [place], [address], Progress Notes * Brianne BRIDGES LDOB: (63 yo F)Acc No.[id number]:04/12/2024 Patient: Brianne GUEVARA :1960 A ge:63 Y S ex:Female Address:[address] [place] [address], [address] * Refills Refill Meclizine HCl Tablet Chewable, 25 MG, Orally, 21, 1 tablet, Three times a day prn vertigo, 7 days, Refills=6 * true * Date: Generated for Nayla hanna/Leonel/Isaacitting on: 07:56 AM EST
--- OUTSIDE RECORDS SUMMARY | 2024-07-29 09:00 | XMS_ITS ---
Author Organization Luis Stoner III, MD Address [address] [place] [address] [place] [address] Care Team Providers Care Iron Bender Name Role Phone Dr. Luis Stoner III Primary Care Provider Allergies Allergen (clinical drug ingredient) Drug/Non Drug Allergy documented on EMR Reaction Allergy Type Onset Date Status No Known Drug Allergy Unknown Drug Allergy Active Results Component Value Reference Range Notes URINE DIP STICK Reviewed date:07/29/2024 02:28:36 PM Interpretation: Performing Lab: Notes/Report: SG 1.005 1.005 - 1.025 pH 6.0 5.0 - 9.0 CHER Negative Negative - NIT Negative Negative - PRO Negative Negative - Trace GLU Negative Negative - KET Negative Negative - UBG 0.2 0.1 - 1.8 ORION Negative 0.2 - 1.3 BLD 50 Negative - REASON FOR VISIT Annual Exam Medications Medication SIG (Take, Route, Frequency, Duration) Notes Start Date End Date Status Vitamin D3 50 MCG (1999) TAKE 1 TABLE T BY MOUTH EVERY DAY Active Omeprazole 20 MG 1 capsule 30 minutes before morning meal Orally Once a day Active Cyclobenzaprine HCl 5 MG 1 tablet Orally twice a day prn muscle spasm 10/18/2023 Active Meclizine HCl 25 MG 1 tablet Orally Thre e times a day prn vertigo Active Social History Tobacco Use: Social History Observation Description Date Details (start date - stop date) Former Smoker NA - NA Sex Assigned At : Social History Observation Description Sex Assigned At Female Tobacco Control (Standard) Question Answer Notes Tobacco use: Former smoker How long has it been since you last smoked? Grea ter than 10 years Additional Findings: Tobacco non-user Ex-cigaret te smoker AUDIT-C (Standard) Question Answer Notes Did you have a drink contain ing alcohol in the past year? Yes How often did you have six o r more drinks on one occasion in the past year? 2 to 3 times per week (3 points) How many drinks did you have on a typical day when you were drinking in the past year? 1 or 2 drinks (0 point) How often did you have a dri nk containing alcohol in the past year? Never (0 point) Points 3 Interpretation Positive Vital Signs Temperature 98.1 degrees Fahrenheit 07/29/19 25 Blood pressure systolic 138 mm Hg 07/29/19 25 Blood pressure diastolic 82 mm Hg 025 Heart Rate 74 /min 07/29/2024 Height 62 in 07/29/2024 Weight 136 lbs 07/29/2024 BMI 24.87 kg/m2 07/29/2024 Encounters Encounter Location Date Provider Diagnosis Luis Stoner III, MD [address] [place] [address] [place] [address] 07/29/2024 Luis Stoner Vitamin D deficiency E55.9 ; Hypercholesteremia E78.00 ; GERD (gastroesophageal reflux disease) K21.9 ; Spondylolisthesis of lumbar region M43.16 ; Lumbar radiculopathy M54.16 and Former smoker Z87.891 Assessments Encounter Date Diagnosis (ICD Code) Assessment Notes Treat ment Notes Treatment Clinical Notes 07/29/2024 Vitamin D deficiency (ICD-10 - E55.9) Vitamin D supplements. 07/29/2024 Hypercholesteremia (ICD-10 - E78.00) Her total cholesterol is within her target range. Her weight is stable and in the normal range. We have discussed her diet and nutrition today. 07/29/2024 GERD (gastroesophage al reflux disease) (ICD-10 - K21.9) She attributes her symptoms of reflux to dysfunction of the sphincter of Oddi. The discomfort is well controlled on current medication. 07/29/2024 Spondylolisthesis of lumbar region (ICD-10 - M43.16) She is being seen by physiatry to stand having injections in the lumbar spine. 07/29/2024 Lumbar radiculopathy (ICD-10 - M54.16) Her back pain is currently stable and improving slowly. The fusion is healing. The pain is much improved 07/29/2024 Former smoker (ICD-1 0 - Z87.891) We have formulated a plan to prevent relapse in times of stress or illness. Plan Of Treatment Medication Medication Name Sig Start Date Stop Date Notes Vitamin D3 50 MCG (1999) TAKE 1 TABLE T BY MOUTH EVERY DAY Omeprazole 20 MG 1 capsule 30 minutes before morning meal Orally Once a day Cyclobenzaprine HCl 5 MG 1 tablet Orally twice a day prn muscle spasm 10/18/2023 Meclizine HCl 25 MG 1 tablet Orally Thre e times a day prn vertigo Next Appt Details Follow Up: 6 Months, Reason: OV Provider Name:Luis Stoner , 06/17/2025 09:45:00 AM, [address] [place] [address] [address], [place], [phone], Provider Name:Luis Stoner , 07/31/2025 10:00:00 AM, [address] [place] [address] [address], [place], [phone], Progress Notes * Brianne BRIDGES LDOB: (64 yo F)Acc No.[id number]:07/29/2024 Progress Notes Patient: Jud OBREGONBrianne PETTIT Provider: Lucy Stoner MD :1960 A ge:64 Y S ex:Female Date:07/29/2024 Address:[address] [place] [id number] Subjective: * Chief Complaints: * A nnual Exam * HPI: D epression Screening: PHQ-9 L ittle interest or pleasure in doing things?Not at all F eeling down, depressed, or hopeless S everal days T rouble falling or staying asleep, or sleeping too much N ot at all F eeling tired or having little energy N ot at all P oor appetite or overeating N ot at all F eeling bad about yourself or that you are a failure, or have let yourself or your family down N ot at all T rouble concentrating on things, such as reading the newspaper or watching television N ot at all M oving or speaking so slowly that other people could have noticed; or the opposite, being so fidgety or restless that you have been moving around a lot more than usual N ot at all T houghts that you would be better off or of hurting yourself in some way N ot at all T otal Score 1 I nterpretation M inimal Depression C OVID-19 Screening: Questions H ave you had any new onset fever, chills, cough, congestion, sore throat, shortness of breath, muscle aches? N o S DEONTE Questions: SDOH Questions I n the past year have you been worried about losing your housing? N o I n the past year have you or any family members you live with been unable to get any of the following when it was really needed? Check all that apply: N one * : The patient, a 64-year-old female, reported having persistent back pain that has remained unchanged. She expressed interest in starting acupuncture as a potential treatment. She also mentioned that she has been doing exercises as recommended by her doctor, but these seem to exacerbate the pain. The patient reported feeling sad and defeated due to the continuous pain, and occasionally cries due to the discomfort. She also mentioned that she tries to hide her pain, especially from her partner, Hayden. Blood Sugar Level is 121. * ROS: G eneral/Constitutional: Admits p ain, C hronic low back pain. C hills d enies. F atigue a dmits. F ever d enies. E NT: Decreased hearing d enies. R espiratory: Cough n on-productive. C ardiovascular: Chest pain with exertion d enies. D yspnea on exertion?denies. S hortness of breath d enies. G astrointestinal: Constipation d enies. D ecreased appetite d enies.?Diarrhea d enies. H eartburn c ontrolled with medications. N ausea d enies.?Rectal bleeding d enies. V omiting d enies. H ematology: bruising d enies. p etechiae d enies. S wollen glands n one have been noted. G enitourinary: Frequent urination d enies. M usculoskeletal: Muscle aches d enies. P [...] Luciano analgesic injections lumbar spine prior near [place] spine and sports Lumbar spine fusion 02/02/2023No history * Hospitalization/Major Diagno stic Procedure: N o history * Family History: F ather: 59 yrs, Lung cancer, diagnosed with Cancer, HTN. M other: alive 85 yrs, copd,chf,ckd,pad,dm2,, diagnosed with Hyperlipidemia, CVD, DM, HTN. C corinne: alive. S on(s): alive. D carolynmalissatita(s): alive. S taran: , diagnosed with HTN. 5 brother(s) . [...] mental illness or substance use disorder or addiction.Youngest sibling is prediabetic. * Social History: T obacco Use: T obacco Control (Standard) T obacco use: F ormer smoker H ow long has it been since you last smoked??Greater than 10 years A dditional Findings: Tobacco non-user E x-cigarette smoker D rugs/Alcohol: D rugs H ave you used drugs other than those for medical reasons in the past 12 months? N o D rug/Alcohol: A JAILENE-C (Standard) D id you have a drink containing alcohol in the past year? Y es H ow often did you have six or more drinks on one occasion in the past year? 2 to 3 times per week (3 points) H ow many drinks did you have on a typical day when you were drinking in the past year? 1 or 2 drinks (0 point) H ow often did you have a drink containing alcohol in the past year? N ever (0 point) P oints 3 I nterpretation P ositive S he stopped smoking in 1990. She has 2 children , alive and well and September,, alive and well. She has 1 healthy grandson and well and healthy granddaughter. Her certified medicine aide is Dr. Torres at [facility]. Her last mammogram in August 2020 was normal. She is to [facility]. * Medications: T akingVitamin D3 50 MCG (1999) Tablet TAKE 1 TABLET BY MOUTH EVERY DAY Omeprazole 20 MG Capsule Delayed Release 1 capsule 30 minutes before morning meal Orally Once a day Cyclobenzaprine HCl 5 MG Tablet 1 tablet Orally twice a day prn muscle spasm Meclizine HCl 25 MG Tablet Chewable 1 tablet Orally Three times a day prn vertigo Medication List reviewed and reconciled with the patientTaking Vitamin D3 50 MCG (1999 UT) Tablet TAKE 1 TABLET BY MOUTH EVERY DAY Taking Omeprazole 20 MG Capsule Delayed Release 1 capsule 30 minutes before morning meal Orally Once a day Taking Cyclobenzaprine HCl 5 MG Tablet 1 tablet Orally twice a day prn muscle spasm Taking Meclizine HCl 25 MG Tablet Chewable 1 tablet Orally Three times a day prn vertigo Medication List reviewed and reconciled with the patient * Allergies: N o Known Drug Allergyno[Allergies Verified] Objective: * Vitals: H t: 62, Wt: 136, BMI:24.87, BP: 138/82, HR: 74, Temp: 98.1, Wt-k.69. * P ast Orders: Lab:Vitamin D 25-OH Total * Collection Date 07/23/2024 07/11/2023 01/20/2023 Collection Time 08:00 AM 08:08 AM 08:10 AM Order Date 07/23/2024 07/11/2023 01/20/2023 Vitamin D 25-OH Total 59.3 (Ref Range: >30 ng/mL) 54.3 (Ref Range: >30 ng/mL) 57.8 (Ref Range: >30 ng/mL) * Lab:Lipid Panel * Collection Date 07/23/2024 12/22/2023 07/11/2023 Collection Time 08:00 AM 07:34 AM 08:08 AM Order Date 07/23/2024 12/22/2023 07/11/2023 Triglycerides 69 (Ref Range: <150 mg/dL) 68 (Ref Range: <150 mg/dL) 83 (Ref Range: <150 mg/dL) Cholesterol 192 (Ref Range: <200 mg/dL) 196 (Ref Range: <200 mg/dL) 203 H (Ref Range: <200 mg/dL) LDL Cholesterol Calculated 119 H (Ref Range: <100 mg/dL) 122 H (Ref Range: <100 mg/dL) 125 H (Ref Range: <100 mg/dL) HDL Cholesterol 60 (Ref Range: >40 mg/dL) 61 (Ref Range: >40 mg/dL) 62 (Ref Range: >40 mg/dL) * Lab:Magnesium * Collection Date 07/23/2024 08/12/2022 Collection Time 08:00 AM 07:50 AM Order Date 07/23/2024 08/12/2022 Magnesium 2.1 (Ref Range: 1.6-2.6 mg/dL) 2.1 (Ref Range: 1.6-2.6 mg/dL) * Lab:Comprehensive [place]. Pane l Fast * Collection Date 07/23/2024 12/22/2023 07/11/2023 Collection Time 08:00 AM 07:34 AM 08:08 AM Order Date 07/23/2024 12/22/2023 07/11/2023 Sodium 142 (Ref Range: 135-145 mmol/L) 140 (Ref Range: 135-145 mmol/L) 141 (Ref Range: 135-145 mmol/L) Bilirubin Total 0.3 (Ref Range: 0.0-1.0 mg/dL) 0.3 (Ref Range: 0.0-1.0 mg/dL) 0.4 (Ref Range: 0.0-1.0 mg/dL) Aspartate Amino Transferase 21 (Ref Range: 5-31 U/L) 16 (Ref Range: 5-31 U/L) 21 (Ref Range: 5-31 U/L) Alanine Aminotransferase 15 (Ref Range: 0-31 U/L) 14 (Ref Range: 0-31 U/L) 20 (Ref Range: 0-31 U/L) Total Protein 7.2 (Ref Range: 6.5-8.0 g/dL) 7.2 (Ref Range: 6.5-8.0 g/dL) 7.7 (Ref Range: 6.5-8.0 g/dL) Albumin Level 4.2 (Ref Range: 3.5-5.0 g/dL) 4.4 (Ref Range: 3.5-5.0 g/dL) 4.5 (Ref Range: 3.5-5.0 g/dL) Alkaline Phosphatase 67 (Ref Range: 39-117 U/L) 71 (Ref Range: 39-117 U/L) 80 (Ref Range: 39-117 U/L) Potassium 3.8 (Ref Range: 3.3-5.1 mmol/L) 3.9 (Ref Range: 3.3-5.1 mmol/L) 4.4 (Ref Range: 3.3-5.1 mmol/L) Chloride 106 (Ref Range: 96-108 mmol/L) 105 (Ref Range: 96-108 mmol/L) 105 (Ref Range: 96-108 mmol/L) Carbon Dioxide 28 (Ref Range: 22-29 mmol/L) 25 (Ref Range: 22-29 mmol/L) 27 (Ref Range: 22-29 mmol/L) Anion Gap 12 (Ref Range: 12-20) 14 (Ref Range: 12-20) 13 (Ref Range: 12-20) Blood Urea Nitrogen 16 (Ref Range: 9-16 mg/dL) 18 H (Ref Range: 9-16 mg/dL) 15 (Ref Range: 9-16 mg/dL) Creatinine 0.77 (Ref Range: 0.5-1.4 mg/dL) 0.82 (Ref Range: 0.5-1.4 mg/dL) 0.82 (Ref Range: 0.5-1.4 mg/dL) Estimated Glomerular Filt Rate > 60 > 60 > 60 Glucose Fasting 94 (Ref Range: 60-99 mg/dL) 102 H (Ref Range: 60-99 mg/dL) 104 H (Ref Range: 60-99 mg/dL) Calcium 9.0 (Ref Range: 8.4-10.2 mg/dL) 9.5 (Ref Range: 8.4-10.2 mg/dL) 9.8 (Ref Range: 8.4-10.2 mg/dL) * Lab:Complete Blood Count Aut o Diff * Collection Date 07/23/2024 12/22/2023 07/11/2023 Collection Time 08:00 AM 07:34 AM 08:08 AM Order Date 07/23/2024 12/22/2023 07/11/2023 White Blood Count 6.4 (Ref Range: 4.8-10.8 X10*3/uL) 4.9 (Ref Range: 4.8-10.8 X10*3/uL) 5.9 (Ref Range: 4.8-10.8 X10*3/uL) Red Blood Count 3.81 L (Ref Range: 4.20-5.50 X10*6/uL) 3.90 L (Ref Range: 4.20-5.50 X10*6/uL) 3.96 L (Ref Range: 4.20-5.50 X10*6/uL) Hemoglobin 12.6 (Ref Range: 12.0-16.0 g/dl) 12.9 (Ref Range: 12.0-16.0 g/dl) 13.0 (Ref Range: 12.0-16.0 g/dl) Hematocrit 37.3 (Ref Range: 37.0-47.0 %) 38.2 (Ref Range: 37.0-47.0 %) 37.9 (Ref Range: 37.0-47.0 %) Mean Corpuscular Volume 97.9 (Ref Range: 80.0-98.0 fL) 97.9 (Ref Range: 80.0-98.0 fL) 95.7 (Ref Range: 80.0-98.0 fL) Mean Corpuscular Hemoglobin 33.1 H (Ref Range: 27.0-33.0 pg) 33.1 H (Ref Range: 27.0-33.0 pg) 32.8 (Ref Range: 27.0-33.0 pg) Mean Corpuscular HGB Conc 33.8 (Ref Range: 31.0-35.0 g/dl) 33.8 (Ref Range: 31.0-35.0 g/dl) 34.3 (Ref Range: 31.0-35.0 g/dl) Red Cell Distribution Width 12.0 (Ref Range: 11.0-16.0 %) 11.9 (Ref Range: 11.0-16.0 %) 11.6 (Ref Range: 11.0-16.0 %) Platelet Count 188 (Ref Range: 160-400 X10*3/uL) 272 (Ref Range: 160-400 X10*3/uL) 219 (Ref Range: 160-400 X10*3/uL) Mean Platelet Volume 8.7 L (Ref Range: 9.4-12.3 fL) 8.1 L (Ref Range: 9.4-12.3 fL) 8.4 L (Ref Range: 9.4-12.3 fL) Neutrophils Percent Auto 51.0 (Ref Range: 45-73 %) 54.8 (Ref Range: 45-73 %) 63.6 (Ref Range: 45-73 %) Imm Gran Pct Auto 0.3 (Ref Range: 0.0-0.4 %) 0.4 (Ref Range: 0.0-0.4 %) 0.2 (Ref Range: 0.0-0.4 %) Lymphocytes Percent Auto 36.3 (Ref Range: 20-40 %) 33.5 (Ref Range: 20-40 %) 25.6 (Ref Range: 20-40 %) Monocytes Percent Auto 8.8 (Ref Range: 2-11 %) 8.1 (Ref Range: 2-11 %) 7.7 (Ref Range: 2-11 %) Eosinophils Percent Auto 3.0 (Ref Range: 0-4 %) 2.8 (Ref Range: 0-4 %) 2.4 (Ref Range: 0-4 %) Basophils Percent Auto 0.6 (Ref Range: 0-2 %) 0.4 (Ref Range: 0-2 %) 0.5 (Ref Range: 0-2 %) NRBC Pct Auto 0.0 (Ref Range: 0.0-0.2 /100WBC) 0.0 (Ref Range: 0.0-0.2 /100WBC) 0.0 (Ref Range: 0.0-0.2 /100WBC) Neutrophils Absolute Auto 3.3 (Ref Range: 2.0-8.3 x10*3/uL) 2.7 (Ref Range: 2.0-8.3 x10*3/uL) 3.7 (Ref Range: 2.0-8.3 x10*3/uL) Imm Gran Abs Auto 0.02 (Ref Range: 0.00-0.03 X10*3/uL) 0.02 (Ref Range: 0.00-0.03 X10*3/uL) 0.01 (Ref Range: 0.00-0.03 X10*3/uL) Lymphocytes Absolute Auto 2.3 (Ref Range: 1.2-4.9 X10*3/uL) 1.7 (Ref Range: 1.2-4.9 X10*3/uL) 1.5 (Ref Range: 1.2-4.9 X10*3/uL) Monocytes Absolute Auto 0.6 (Ref Range: 0.1-1.2 X10*3/uL) 0.4 (Ref Range: 0.1-1.2 X10*3/uL) 0.5 (Ref Range: 0.1-1.2 X10*3/uL) Eosinophils Absolute Auto 0.2 (Ref Range: 0.0-0.4 X10*3/uL) 0.1 (Ref Range: 0.0-0.4 X10*3/uL) 0.1 (Ref Range: 0.0-0.4 X10*3/uL) Basophils Absolute Auto 0.0 (Ref Range: 0.0-0.2 X10*3/uL) 0.0 (Ref Range: 0.0-0.2 X10*3/uL) 0.0 (Ref Range: 0.0-0.2 X10*3/uL) NRBC Abs Auto 0.000 (Ref Range: 0.0-0.012 X10*3/uL) 0.000 (Ref Range: 0.0-0.012 X10*3/uL) 0.000 (Ref Range: 0.0-0.012 X10*3/uL) * Lab:URINE DIP STICK * Collection Date 07/29/2024 07/25/2023 07/15/2022 Order Date 07/29/2024 07/25/2023 07/15/2022 SG 1.005 (Ref Range: 1.005 - 1.025) 1.010 (Ref Range: 1.005 - 1.025) 1.000 pH 6.0 (Ref Range: 5.0 - 9.0) 6.0 (Ref Range: 5.0 - 9.0) 6.0 CHER Negative (Ref Range: Negative -) 70 (Ref Range: Negative -) Neg NIT Negative (Ref Range: Negative -) Negative (Ref Range: Negative -) Neg PRO Negative (Ref Range: Negative - Trace) 15 (Ref Range: Negative - Trace) Neg GLU Negative (Ref Range: Negative -) Negative (Ref Range: Negative -) Neg KET Negative (Ref Range: Negative -) Negative (Ref Range: Negative -) Neg UBG 0.2 (Ref Range: 0.1 - 1.8) 0.2 (Ref Range: 0.1 - 1.8) 0.2 ORION Negative (Ref Range: 0.2 - 1.3) Negative (Ref Range: 0.2 - 1.3) Neg BLD 50 (Ref Range: Negative -) Positive (Ref Range: Negative -) 50 Menstrating NR NR No * Examination: G eneral Examination: GENERAL APPEARANCE: p leasant, well nourished, well developed, in no acute distress, calm and relaxed, woman. HEAD: a traumatic, normocephalic. EYES: e [...] LUNGS: c lear to auscultation . BREASTS: N ot examined, Done by CERTIFIED FORKLIFT OPERATOR. ABDOMEN: b owel sounds normal, no ascites, no organomegaly, no mass. RECTAL EXAM: n ot examined, Done by CERTIFIED FORKLIFT OPERATOR. MUSCULOSKELETAL: e xtremities unremarkable, no clubbing, cyanosis or edema. PERIPHERAL PULSES: n ormal. NEUROLOGIC: a lert and oriented, cranial nerves 2-12 grossly intact, deep tendon reflexes 2+ symmetrical, motor strength normal upper and lower extremities, sensory exam intact. PSYCH: a lert, oriented. Assessment: * Assessment: 1. V itamin D deficiency - E55.9 (Primary) N otes :Vitamin D supplements. 2 . H ypercholesteremia - E78.00 N otes :Her total cholesterol is within her target range. Her weight is stable and in the normal range. We have discussed her diet and nutrition today. 3 . G ERD (gastroesophageal reflux disease) - K21.9 N otes :She attributes her symptoms of reflux to dysfunction of the sphincter of Oddi. The discomfort is well controlled on current medication. 4 . S pondylolisthesis of lumbar region - M43.16 N otes :She is being seen by physiatry to stand having injections in the lumbar spine. 5 . L umbar radiculopathy - M54.16 N otes :Her back pain is currently stable and improving slowly. The fusion is healing. The pain is much improved 6 . F ormer smoker - Z87.891 N otes :We have formulated a plan to prevent relapse in times of stress or illness. Plan: * Treatment: * Labs: * L ab: URINE DIP STICK (Collection Date & Time - 07/29/2024) Value Reference Range S G 1.005 1.005 - 1.025 * p H 6.0 5.0 - 9.0 * L EU Negative Negative - * N IT Negative Negative - * P RO Negative Negative - Trace * G ANABELL Negative Negative - * K ET Negative Negative - * U BG 0.2 0.1 - 1.8 * B IL Negative 0.2 - 1.3 * B LD 50 Negative - * Procedure Codes: 8 1002 URINE-NO MICRO * Preventive Medicine: DM Care Plan: P atient Lifestyle Goals P atient wants to be able to manage diabetes without too much effort. T reatment Goals H bA1C < 7.0, Blood Sugars less than < 115. * Follow Up: 6 Months (Reason: OV) * Images: * Sign off status: Completed true * Provider: Lucy Stoner MD Date: 0 07/29/2024 Generated for Leylai jacques/Leonel/Danielransmitting on: 07:56 AM EST History and Physical Notes * HPI (History of Present Illness) Category Sub-Category Detail Notes Depression Screening PHQ-9 Little inte rest or pleasure in doing things: Not at all Feeling down, depressed, or hopeless: Se veral days Trouble falling or staying asleep, or sl eeping too much: Not at all Feeling tired or having little energy: N ot at all Poor appetite or overeating: Not at all Feeling bad about yourself o r that you are a failure, or have let yourself or your family down: Not at all Trouble concentrating on thi ngs, such as reading the newspaper or watching television: Not at all Moving or speaking so slowly that other people could have noticed; or the opposite, being so fidgety or restless that you have been moving around a lot more than usual: Not at all Thoughts that you would be b pipe off or of hurting yourself in some way: Not at all Total Score: 1 Interpretation: Minimal Depression COVID-19 Screening Questions Have you had any new onset fever, chills, cough, congestion, sore throat, shortness of breath, muscle aches?: No SDOH Questions SDOH Questions In the past year have you been worried about losing your housing?: No In the past year have you or any family members you live with been unable to get any of the following when it was really needed? Check all that apply:: None Examination Category Sub-Category Detail Notes General Examination GENERAL APPEARANCE: pleasant , well nourished, well developed, in no acute distress, calm and relaxed, woman HEAD: atraumatic, normocep halic EYES: eomi, [...] lesion s, anicteric PERIPHERAL PULSES: normal BREASTS: Not examined, Done b y CERTIFIED FORKLIFT OPERATOR MUSCULOSKELETAL: extremities unremark able, no clubbing, cyanosis or edema LYMPH NODES: no enlarged lymph no angélica,spleen normal RECTAL EXAM: not examined, Done b y CERTIFIED FORKLIFT OPERATOR PSYCH: alert, oriented ORAL CAVITY: normal, unremarkable
--- OUTSIDE RECORDS SUMMARY | 2025-01-27 05:00 | XMS_ITS ---
Author Organization Luis Stoner III, MD Address [address] [place] [address] [place] [address] Care Team Providers Care Hydraulic Plumber Name Role Phone Dr. Luis Stoner III [...] Problem Status W/U Status Risk Notes Problem 01317994 Anxiety, generalized (F41.1) Active confirmed She has had a positive experience of therapy with a therapist. She was encouraged to continue the treatment as long as benefits continue. Vital Signs Temperature 97.3 degrees Fahrenheit 01/28/20 25 Blood pressure systolic 139 mm Hg 01/28/20 25 Blood pressure diastolic 87 mm Hg 025 Heart Rate 80 /min 01/27/2025 Height 62 in 01/27/2025 Weight 132 lbs 01/27/2025 BMI 24.14 kg/m2 01/27/2025 Encounters Encounter Location Date Provider Diagnosis Luis Stoner III, MD [address] [place] [address] [place], [place] [address] 01/27/2025 Luis Stoner Osteoporosis screeni ng Z13.820 [...] Up: 3 Months, Reason: OV Provider Name:Luis Stoner , 06/17/2025 09:45:00 AM, [address] [facility] [address], [place], [address], Provider Name:Luis Stoner , 07/31/2025 10:00:00 AM, [address] [facility] [address], [place], [address], Progress Notes * Brianne BRIDGES LDOB: (64 yo F)Acc No.[id number]:01/27/2025 Progress Notes Patient: Brianne GUEVARA Provider: Lucy Stoner MD :1960 A ge:64 Y S ex:Female Date:01/27/2025 Address:[address] [place] [id number] Subjective: * Chief Complaints: * A nxiety [...] arthroscopy Upper endoscopy and colonoscopy, 1 tubular adenoma,[facility], Dr. Luciano analgesic injections lumbar spine prior near [place] spine and sports Lumbar spine fusion 02/02/2023No history * Hospitalization/Major Diagno stic Procedure: N o history * Family History: F ather: 59 yrs, Lung cancer, diagnosed with HTN, Cancer. M other: alive 85 yrs, copd,chf,ckd,pad,dm2,, diagnosed with CVD, DM, HTN, Hyperlipidemia. C hildren: alive. S on(s): alive. [...] grandson and well and healthy granddaughter. Her rehabilitation therapist is Dr. Torres at [facility]. Her last mammogram in August 2020 [...] MD Date: 0 01/27/2025 Generated for Nayla hanna/Leonel/Isaacitting on: 1 07:56 [...]
--- OUTSIDE RECORDS SUMMARY | 2025-01-31 08:27 | XMS_ITS ---
Author Organization Luis Stoner III, MD Address [address] [place] [address] Care Team Providers Care Woods Boss Name Role Phone Dr. Luis Stoner III Primary Care Provider [phone] REASON FOR VISIT New Bone Density Order Social History Sex Assigned At : Social History Observation Description Sex Assigned At Female Encounters Encounter Location Date Provider Diagnosis Luis Stoner III, MD [address] [place] [address] [place] [address] 01/31/2025 Luis Stoner Osteoporosis screeni ng Z13.820 [...] Provider Name:Luis Stoner , 06/17/2025 09:45:00 AM, [address] [place] [address] [place], [address], Provider Name:Luis Stoner , 07/31/2025 10:00:00 AM, [address] [place] [address] [place], [address], Progress Notes * Brianne BRIDGES LDOB: (64 yo F)Acc No.[id number]:01/31/2025 Patient: Brianne GUEVARA :1960 A ge:64 Y S ex:Female Address:[address] [place] [address] [place], [address] Subjective: * Chief Complaints: * N ew [...]
--- OUTSIDE RECORDS SUMMARY | 2025-04-29 05:00 | XMS_ITS ---
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 Luis Stoner III Primary Care Provider [phone] Allergies Allergen (clinical drug ingredient) Drug/Non Drug Allergy documented on EMR Reaction Allergy Type Onset Date Status No Known Drug Allergy Unknown Drug Allergy Active Results Component Value Reference Range Notes Lipid Panel Reviewed date:05/26/2025 05:48:13 AM Interpretation: Performing Lab:[address] [address] Notes/Report: Triglycerides 89 <150 mg/dL Desirable Triglyceride: less than 150 mg/dL Borderline High Triglyceride 150-199 mg/dL High Triglyceride: 200-499 mg/dL Very High Triglyceride: greater than or equal to 5OO mg/dL Cholesterol 237 <200 mg/dL Desirable Cholesterol: less than 200 mg/dL Borderline High Cholesterol: 200-239 mg/dL High Cholesterol: greater than 239 mg/dL LDL Cholesterol Calculated 161 <100 mg/dL Desirable LDL: less than 100 mg/dL Near Optimal/Above Optimal LDL: 110-129 mg/dL Borderline High LDL: 130-159 mg/dL High LDL: 160-189 mg/dL Very High LDL: greater than or equal to 190 mg/dL HDL Cholesterol 59 >40 mg/dL Desirable HDL: greater than 40 mg/dL Note: This HDL assay may give artificially low results in patients with liver disease. Vitamin D 25-OH Total Reviewed date:05/26/2025 05:48:13 AM Interpretation: Performing Lab:[facility], [address] [place] [id number] Notes/Report: Vitamin D 25-OH Total 40.4 >30 ng/mL Health Based Reference Values* < 20 ng/mL Deficient 20-30 ng/mL Insufficient > 30 ng/mL Sufficient *Sheyla HERNANDEZ. N Engl J Med. 2007;357:266-280 There is no well-established upper level of normal vitamin D levels. Some laboratories use 50 ng/mL as an upper limit of normal. However, toxicity is patient-dependent and may occur at any level. Careful correlation with the patient's presentation is necessary and, if there is concern for vitamin D toxicity, treatment should be considered irrespective of the serum level. Care must be taken in interpreting Vitamin [...] confirmed with another method such as LC-MS/MS. REASON FOR VISIT Generalized anxiety, GERD, Lumbar radiculopathy, Hyperlipidemia Medications Medication SIG (Take, Route, Frequency, [...] has it been since you last smoked? Carl ter than 10 years Additional Findings: Tobacco non-user Ex-cigaret te smoker Vital Signs Temperature 97.2 degrees Fahrenheit 04/29/20 25 Blood pressure systolic 138 mm Hg 04/29/20 25 Blood pressure diastolic 82 mm Hg 025 Heart Rate 89 /min 04/29/2025 Height 62 in 04/29/2025 Weight 136 lbs 04/29/2025 BMI 24.87 kg/m2 04/29/2025 Encounters Encounter Location Date Provider Diagnosis Luis Stoner III, MD [address] [place] [address] [place] [address] 04/29/2025 Luis Stoner Anxiety, generalized F41.1 ; Irregular heart rate I49.9 ; Hypercholesteremia E78.00 ; GERD (gastroesophageal reflux disease) K21.9 ; Lumbar radiculopathy M54.16 and Former smoker Z87.891 Assessments Encounter Date Diagnosis (ICD Code) Assessment Notes T reatment Notes Treatment Clinical Notes 04/29/2025 Anxiety, generalized (ICD-10 - F41.1) She has had a positive experience of therapy with a therapist. She was encouraged to continue the treatment as long as benefits continue. 04/29/2025 Irregular heart rate (ICD-10 - I49.9) She says she occasionally feels tachycardic when she is anxious. She said she was feeling during the interval today. At that time her pulse was normal. 04/29/2025 Hypercholesteremia (ICD-10 - E78.00) Her total cholesterol is within her target range. Her weight is stable and in the normal range. We have discussed her diet and nutrition today. 04/29/2025 GERD (gastroesophage al reflux disease) (ICD-10 - K21.9) She attributes her symptoms of reflux to dysfunction of the sphincter of Oddi. The discomfort is well controlled on current medication. 04/29/2025 Lumbar radiculopathy (ICD-10 - M54.16) Her back pain is currently stable and improving slowly. The fusion is healing. The pain is much improved 04/29/2025 Former smoker (ICD-1 0 - Z87.891) We [...] 04/29/2025 Stress Test 04/29/2025 Holter Monitor 04/29/2025 ECG 12 lead EKG 04/29/2025 Next Appt Details Follow Up: 3 Months, Reason: ov Provider Name:Luis Stoner , 06/17/2025 09:45:00 AM, [address] [facility] [address], [place], [address], Provider Name:Luis Stoner , 07/31/2025 10:00:00 AM, [address] [place] [address] [address], [place], [address], Progress Notes * YULIANABrianne GARCIA LDOB: (64 yo F)Acc No.[id number]:04/29/2025 Progress Notes Patient: Brianne GUEVARA Provider: Lucy Stoner MD :1960 A ge:64 Y S ex:Female Date:04/29/2025 Address:[address] [place] [id number] Subjective: * Chief Complaints: * G eneralized anxietyGERDLumbar radiculopathyHyperlipidemia * HPI: C OVID-19 Screening: S he returns for medical management of several issues. This was a scheduled visit. The low back pain is mild and about the same. She is able to conduct all of the activities of daily living. On her last visit we discussed her anxiety length she has obtained counseling and likes her therapist very much. She says it is beginning to help. The therapist has said not to take any medications at this time. She occasionally has tachycardia. He denies any chest pain. No new problems were detected on today's physical examination. Questions H ave you had any new onset fever, chills, cough, congestion, sore throat, shortness of breath, muscle aches? N o * ROS: G eneral/Constitutional: pain L umbar spine with prolonged weightbearing, otherwise only normal aches and pains. C hills d enies. F atigue a [...] hat is chronic. P sychiatric: Depressed mood w hich is mild. * Medical History: * Surgical History: W isdom teeth extractions x 2 Cholecystectomy Right knee arthroscopy Upper endoscopy and colonoscopy, 1 tubular adenoma,[facility], Dr. Luciano analgesic injections lumbar spine prior near [place] [facility] Lumbar spine fusion 02/02/2023No history * Hospitalization/Major Diagno stic Procedure: N o history * Family History: F ather: 59 yrs, Lung cancer, diagnosed with HTN, Cancer. M other: alive 85 yrs, copd,chf,ckd,pad,dm2,, diagnosed with Hyperlipidemia, CVD, DM, HTN. C hildren: alive. S on(s): alive. D [...] grandson and well and healthy granddaughter. Her upper extremity surgeon is Dr. Torres at [facility]. Her last mammogram in August 2020 was [...] prn vertigo Taking Vitamin D3 50 MCG (2000 UT) Tablet [...] 62, Wt: 136, BMI:24.87, BP: 138/82, HR: 89, Temp: 97.2, Wt-k.69. * P [...] generalized - F41.1 (Primary) N otes :She has had a positive experience of therapy with a therapist. She was encouraged to continue the treatment as long as benefits continue. 2 . I rregular heart rate - I49.9 N otes :She says she occasionally feels tachycardic when she is anxious. She said she was feeling during the interval today. At that time her pulse was normal. 3 . H ypercholesteremia - E78.00 N otes :Her total cholesterol is within her target range. Her weight is stable and in the normal range. We have discussed her diet and nutrition today. 4 . G ERD (gastroesophageal reflux disease) - K21.9 N otes :She attributes her symptoms of reflux to dysfunction of the sphincter of Oddi. The discomfort is well controlled on current medication. 5 . L umbar radiculopathy - M54.16 N otes :Her back pain is currently stable and improving slowly. The fusion is healing. The pain is much improved 6 . F ormer smoker - Z87.891 N otes :We have formulated a plan to prevent relapse in times of stress or illness. Plan: * Treatment: Value Reference Range T riglycerides 89 <150 - mg/dL * C holesterol 237 H <200 - mg/dL * L DL Cholesterol Calculated 161 H <100 - mg/dL * H DL Cholesterol 59 >40 - mg/dL ?LAB: Vitamin D 25-OH Total (Collection Date & Time - 04/30/2025 08:05 AM)* Value Reference Range V itamin D 25-OH Total 40.4 >30 - ng/mL 2.?Irregular heart rate?Imaging: Stress Test ?Imaging: Holter Monitor ?Imaging: ECG 12 lead EKG3.?Hypercholesteremia?LAB: PROFILE, FASTING (COMPREHENSIVE METABOLIC) ?LAB: CBC w DIFF ?LAB: Lipid Panel (Collection Date & Time - 04/30/2025 08:05 AM)* Value Reference Range T riglycerides 89 <150 - mg/dL * C holesterol 237 H <200 - mg/dL * L DL Cholesterol Calculated 161 H <100 - mg/dL * H DL Cholesterol 59 >40 - mg/dL ?LAB: Vitamin D 25-OH Total (Collection Date & Time - 04/30/2025 08:05 AM)* Value Reference Range V itamin D 25-OH Total 40.4 >30 - ng/mL 4.?GERD (gastroesophageal reflux disease)?LAB: PROFILE, FASTING (COMPREHENSIVE METABOLIC) ?LAB: CBC w DIFF ?LAB: Lipid Panel (Collection Date & Time - 04/30/2025 08:05 AM)* Value Reference Range T riglycerides 89 <150 - mg/dL * C holesterol 237 H <200 - mg/dL * L DL Cholesterol Calculated 161 H <100 - mg/dL * H DL Cholesterol 59 >40 - mg/dL ?LAB: Vitamin D 25-OH Total (Collection Date & Time - 04/30/2025 08:05 AM)* Value Reference Range V itamin D 25-OH Total 40.4 >30 - ng/mL 5.?Others? Continue Meclizine HCl Tablet Chewable, 25 MG, 1 tablet, Orally, Three times a day prn vertigo; Continue Vitamin D3 Tablet, 50 MCG (2000 UT), TAKE 1 TABLET BY MOUTH EVERY DAY;?Continue Omeprazole Capsule Delayed Release, 20 MG, 1 capsule 30 minutes before morning meal, Orally, Once a day; Continue Cyclobenzaprine HCl Tablet, 5 MG, 1 tablet, Orally, twice a day prn muscle spasm. ? * Procedure Codes: * Preventive Medicine: Counseling: S moking/Tobacco Use Patient counseled on the dangers of tobacco use and urged to quit. 1 06/29/2024 * Follow Up: 3 Months (Reason: ov) * Images: * Sign off status: Completed true * Provider: Lucy Stoner MD Date: 06/29/2024 Generated for Nayla hanna/Leonel/Isaacitting on: 07:56 AM [...]
--- NOTE | 2025-06-02 07:56 | CA_ITS ---
Acquisition Time: 2025-06-02 08:02:27 Total Exercise Time: 00:05:05 Test Indications: Palpitations/TACHYCARDIA Medications: MECLIZINE OMEPRAZOLE CYCLOBENZAPRINE Protocol: ESTEBAN Max HR: 150 BPM 96% of Pred: 155 BPM Max BP: 138/82 mmHG Max Work Load: 7.0 METS Exercise stress test with exercise 5 mins 5 secs of Esteban Protocol, achieving 96% MPHR, with reports of mild SOB, no chest pain, with reports of palpitations with frequent PVCs and rare couplets, with normotensive response to exercise. Without any EKG changes meeting criteria for ischemia. In recovery, breathing improved to baseline. Test reviewed with Dr. Tam. Referred By: Luis Stoner Electronically Signed By: Paul Dugan
--- OUTSIDE RECORDS SUMMARY | 2025-06-02 07:56 | XMS_ITS | Patient Health Record ---
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 Section Notes: She [...] Problem Screening for malignant neoplasm of colon (695979637) Encounter for screening for malignant neoplasm of colon (Z12.11) Active confirmed Problem History of adenomatous polyp of colon (771025982) History of adenomatous polyp of colon (Z86.010) Active confirmed Problem History of polyp of colon (situation) (857635283) Personal history of colonic polyps (Z86.010) Active confirmed Problem Screening for malignant neoplasm of rectum (519922688) Encounter for screening for malignant neoplasm of rectum (Z12.12) Active confirmed Problem Epigastric pain (20005174) Abdominal pain, epigastric (R10.13) Active confirmed Problem Preprocedural examination (837347826286227) Preprocedural examination (Z01.818) Active confirmed Problem Diverticulosis of sigmoid colon (104085900) Diverticulosis of sigmoid colon (K57.30) Active confirmed Plan Of Treatment Pending Test Test Name Order Date US ABD 02/27/2013 Future Test Test Name Order Date COLONOSCOPY 06/15/2016 COLONOSCOPY 03/01/2022 Insurance Providers Payer Name Payer Address Payer Phone Subscriber Number Group Number Insured Name Patient Relationship to Insured Coverage Start Date Coverage End Date [facility] [address] [place] [phone] [id number] LYNDA LEO Self - patient is the insured Medical (General) History Medical History History ICD Code Denies [place],DM,CVA,Lung disease,renal dise ase Screening colonoscopy--Tubular adenoma r [...]
--- OUTSIDE RECORDS SUMMARY | 2025-06-02 07:56 | XMS_ITS | Patient Health Record ---
Author Organization Luis Stoner III, MD Address [address] [place] [address] [place] [address] Care Team Providers Care Machine Edge Bander Name Role Phone Dr. Luis Stoner III Primary Care Provider [phone] Allergies Allergen (clinical drug ingredient) Drug/Non Drug Allergy documented on EMR Reaction Allergy Type Onset Date Status No Known Drug Allergy Unknown Drug Allergy Active Results Component Value Reference Range Notes Complete Blood Count Auto Di ff Reviewed date:07/24/2024 03:46:22 PM Interpretation: Performing Lab:[facility], [address] [place] [phone] Notes/Report: White Blood Count 6.4 4.8-10.8 X10*3/uL [...] NRBC Abs Auto 0.000 0.0-0.012 X10*3/uL Comprehensive Pratt. Panel Fa st Reviewed date:07/24/2024 03:46:22 PM Interpretation: Performing Lab:[facility], [address] [place] [phone] Notes/Report: Sodium 142 135-145 mmol/L Potassium 3.8 [...] Magnesium Reviewed date:07/24/2024 03:46:22 PM Interpretation: Performing Lab:[facility], [address] [place] [phone] Notes/Report: Magnesium 2.1 1.6-2.6 mg/dL Lipid Panel Reviewed date:07/24/2024 03:46:22 PM Interpretation: Performing Lab:[facility], [address] [place] [phone] Notes/Report: Triglycerides 69 <150 mg/dL Desirable Triglyceride: [...] Total Reviewed date:07/24/2024 03:46:22 PM Interpretation: Performing Lab:[facility], [address] [place] [phone] Notes/Report: Vitamin D 25-OH Total 59.3 >30 [...] Smear Reviewed date:11/10/2024 09:34:15 AM Interpretation: Performing Lab:[facility], [address] [place] [address], [place] [address] Notes/Report: --- Name: YulianaBrianne Age/Sex: 64/F : 1960 Unit#: [id number] Attend Dr: Thuy Schumacher CNM Re10/29/24 Status : [facility] Location: [facility] Disch: --- SPEC : [id number] RECD : 10/29/24-1339 STATUS: REBECCA ANDERSON NUM: [id number] MAYNOR: 10/29/24-0[address] [facility] [address]: Thuy Schumacher CNM ENTERED: 10/29/24-13 49 [...] and HPV testing will be performed at [facility] (CLIA #[id number]), [address] [place] [address]. Testing for H PV was performed using [...] detected. All professional services are performed by [facility] ([address] [place] [address], [place] [address]; h: [phone]; CLIA #[id number]). The PAP Test is a screening procedure with the inherent possibility of both false negative and false positive results. Results should be interpreted in the context of historic and current clinical findings. Reliability of the PAP Test is enhanced by performing the test on a regular repetit kaiser basis. CONTINUED ON NEXT PAGE --- Name: Brianne Bridges Love Age/Sex: 64/F : 1960 Unit#: [id number] Attend Dr: Thuy Schumacher CNM Re10/29/24 Status : DEP REF Location: [facility] Disch: --- SPEC : [id number] REC STATUS: REBECCA ANDERSON NUM: [id number] MAYNOR: 10/29/[address] [facility] [address]: Thuy Schumacher CNM ENTERED: 10/29/24 49 SP TYPE: Pap Smr OTHR DR: Luis Stoner MD ORDERED: Pap Smear Copies To: Luis Stoner MD [address] [facility], [address] [place] [address] Thuy Schumacher CNM [facility] [address] [place] [address] --- Signed (signature on file) RONAK Sánchez (ASCP) 11/01/24 1026 --- END OF REPORT HPV High risk Reviewed date:03/17/2025 09:36:11 AM Interpretation: Performing Lab:[facility], [address] [place] [phone] Notes/Report: HPV High Risk Negative Negative HPV Genotype 16 Negative Negative HPV Genotype 18 Negative Negative HPV testing performed at [facility] (CLIA #[id number]), [address] [place] [address]. Testing for HPV was performed using the [employer] system. The presence of HPV in the [...] date:11/10/2024 09:34:15 AM Interpretation: Performing Lab: Notes/Report: [place] [facility] [address] [place] [address] Mammography Report Signed Patient: Brianne Bridges MR#: [id number] : 1960 Acct:[id number] Age/Sex: 64 / F ADM Date: 11/02/24 Loc: .MAMMO Attending Dr: Luis Stoner MD Ordering Physician: Luis Stoner MD Results: 1Negativ e Date of Service: 11/02/24 Follow Up: 1 Year From [facility] Mammogram Procedure(s): MM tomosynthesis screening BI Accession Number(s): [id number] cc: Luis Stoner MD EXAMINATION: MM SCREENING [...] 11/09/2024 04:37 PM EDT Dictated By: Dionne Msoer DO Signed By: <Electronically signed by Dionne Moser DO in OV> 11/09/24 1637 DD/ 9 TD/TT: 11/02/24919 Haul Driver: [facility] [address] [place], [place] [address] Mammography Report Signed Patient: Brianne Bridges MR#: [id number] : 1960 Acct:[id number] Age/Sex: 64 / F ADM Date: 11/02/24 Loc: HO.MAMMO Attending Dr: Luis Stoner MD Ordering Physician: Luis Stoner MD Results: 1Negativ e Date of Service: 11/02/24 Follow Up: 1 Year From Orig inal Mammogram Procedure(s): MM tomosynthesis screening BI Accession Number(s): [id number] cc: Luis Stoner MD EXAMINATION: MM SCREENING [...] in OV> 11/09/24 1637 DD/ TD/TT: 11/02/24919 Haul Driver: XR DEXA axial skeleton Reviewed date:03/17/2025 09:36:11 AM Interpretation: Performing Lab: Notes/Report: [place] [facility] [address] [place], [place] [address] Mammography Report Signed Patient: Brianne Bridges MR#: [id number] : 1960 Acct:[id number] Age/Sex: 64 / F ADM Date: 02/19/25 Loc: HO.MAMMO Attending Dr: Luis Stoner MD Ordering Physician: Luis Stoner MD Results: Date of Service: 02/19/25 Follow Up: Procedure(s): XR DEXA axial skeleton Accession Number(s): [id number] cc: Luis Stoner MD Reason For Exam: Z78.0 MENOPAUSAL STATE EXAMINATION: DXA BONE DENSITY AXIAL HISTORY: Z78.0 MENOPAUSAL STATE TECHNIQUE: MegaBits Dual energy absorptiometry (DEXA) of the lumbar [...] of the [employer] Metabolic Bone Disease, a World Health Organization (WHO) Collaborating Center. Electronically signed by: Luis Alejandra MD 02/19/2025 09:15 AM EDT RP Dictated By: Luis Alejandra MD Signed By: <Electronically signed by Luis Alejandra MD in OV> 02/19/25914 DD/ 3 TD/TT: 02/19/25899 Haul Driver: [place] [facility] [address] [place] [address] Mammography Report Signed Patient: Brianne Bridges MR#: [id number] : 1960 Acct:[id number] Age/Sex: 64 / F ADM Date: 02/19/25 Loc: HO.MAMMO Attending Dr: Luis Stoner MD Ordering Physician: Luis Stoner MD Results: Date of Service: 02/19/25 Follow Up: Procedure(s): XR DEX A axial skeleton Accession Number(s): [id number] cc: Luis Stoner MD Reason For Exam: Z78 .0 MENOPAUSAL STATE EXAMINATION: DXA BON E DENSITY AXIAL HISTORY: Z78.0 MENOPAUSAL STATE TECHNIQUE: MegaBits Dual energy absorptiometry (DEXA) of the lumbar [...] of the [employer] Metabolic Bone Disease, a World Health Organization (WHO) Collaborating Center. Electronically sim d by: Luis Alejandra MD 02/19/2025 09:15 AM EDT Dictated By: Luis Alejandra MD Signed By: <Electronically signed by Luis Alejandra MD in OV> 02/19/25914 DD/ 3 TD/TT: 02/19/25899 Haul Driver: Lipid Panel Reviewed date:05/26/2025 05:48:13 AM Interpretation: Performing Lab:[facility], [address] [place] [phone] Notes/Report: Triglycerides 89 <150 mg/dL Desirable Triglyceride: [...] Total Reviewed date:05/26/2025 05:48:13 AM Interpretation: Performing Lab:[facility], [address] [place] [phone] Notes/Report: Vitamin D 25-OH Total 40.4 >30 [...] confirmed with another method such as LC-MS/MS. Complete Blood Count Auto Di ff Reviewed date:05/26/2025 05:48:13 AM Interpretation: Performing Lab:[facility], [address] [place] [phone] Notes/Report: White Blood Count 5.9 4.8-10.8 X10*3/uL Red Blood Count 4.02 4.20-5.50 X10*6/uL Hemoglobin 13.1 12.0-16.0 g/dl Hematocrit 39.0 37.0-47.0 % Mean Corpuscular Volume 97.0 80.0-98.0 fL Mean Corpuscular Hemoglobin 32.6 27.0-33.0 pg Mean Corpuscular HGB Conc 33.6 31.0-35.0 g/dl Red Cell Distribution Width 11.5 11.0-16.0 % Platelet Count 193 160-400 X10*3/uL Mean Platelet Volume 8.3 9.4-12.3 fL Neutrophils Percent Auto 55.4 45-73 % Imm Gran Pct Auto 0.2 0.0-0.4 % Lymphocytes Percent Auto 31.6 20-40 % Monocytes Percent Auto 10.4 2-11 % Eosinophils Percent Auto 1.9 0-4 % Basophils Percent Auto 0.5 0-2 % NRBC Pct Auto 0.0 0.0-0.2 /100WBC Neutrophils Absolute Auto 3.2 2.0-8.3 x10*3/uL Imm Gran Abs Auto 0.01 0.00-0.03 X10*3/uL Lymphocytes Absolute Auto 1.9 1.2-4.9 X10*3/uL Monocytes Absolute Auto 0.6 0.1-1.2 X10*3/uL Eosinophils Absolute Auto 0.1 0.0-0.4 X10*3/uL Basophils Absolute Auto 0.0 0.0-0.2 X10*3/uL NRBC Abs Auto 0.000 0.0-0.012 X10*3/uL Comprehensive Pratt. Panel Fa st Reviewed date:05/26/2025 05:48:13 AM Interpretation: Performing Lab:[facility], [address] [place] [phone] Notes/Report: Sodium 140 135-145 mmol/L Potassium 3.6 3.3-5.1 mmol/L Chloride 105 96-108 mmol/L Carbon Dioxide 27 22-29 mmol/L Anion Gap 12 12-20 Blood Urea Nitrogen 16 9-16 mg/dL Creatinine 0.74 0.5-1.4 mg/dL Estimated Glomerular Filt Rate > 60 Chronic Kidney Disease: Estimated GFR < 60 mL/min/1.73m2 Severe Kidney Disease: Estimated GFR < 15 mL/min/1.73m2 Glucose Fasting 94 60-99 mg/dL Calcium 9.4 8.4-10.2 mg/dL Bilirubin Total 0.4 0.0-1.0 mg/dL Aspartate Amino Transferase 24 5-31 U/L Alanine Aminotransferase 18 0-31 U/L Total Protein 7.2 6.5-8.0 g/dL Albumin Level 4.6 3.5-5.0 g/dL Alkaline Phosphatase 71 39-117 U/L Reason For Referral No Information Medications Medication [...] tered RSV Adjuvant Unknown 05/20/2023 Administered COMIRNATY [employer] Unknown 04/13/2023 Administer ed Influenza-iiv4 p-free high [...] Problem Status W/U Status Risk Notes Problem 0651460 Former smoker (Z87.891) Active confirmed We have formulated a plan to prevent relapse in times of stress or illness. Problem 018988272 Lumbar radiculopathy (M54.16) Active confirmed Her back pain is currently stable and improving slowly. The fusion is healing. The pain is much improved Problem Gastroesophageal reflux disease (258331930) GERD (gastroesophagea l reflux disease) (K21.9) Active confirmed She attributes her symptoms of reflux to dysfunction of the sphincter of Oddi. The discomfort is well controlled on current medication. Problem Vitamin D deficiency (09072290) Vitamin D deficiency (E55.9) Active confirmed Vitamin D supplements. Problem Cardiac arrhythmia (523155899) Irregular heart rate (I49.9) Active confirmed She says she occasionally feels tachycardic when she is anxious. She said she was feeling during the interval today. At that time her pulse was normal. Problem 094155036365015 Spondylolisthesi s of lumbar region (M43.16) Active confirmed She is being seen by physiatry to stand having injections in the lumbar spine. Problem hypercholesterolemi a (disorder) (53435153) Hypercholesterem ia (E78.00) Active confirmed Her total cholesterol is within her target range. Her weight is stable and in the normal range. We have discussed her diet and nutrition today. Problem 094717639 Adenomatous polyp (D36.9) Active confirmed She will undergo colonoscopy at five-year intervals. 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 She will continue on current therapy for her low back pain Problem 13125323 Anxiety, generalized (F41.1) Active confirmed She has had a positive experience of therapy with a therapist. She was encouraged to continue the treatment as long as benefits continue. Vital Signs Heart Rate 89 /min 04/29/2025 Temperature 97.2 degrees Fahrenheit 04/29/2025 Blood pressure diastolic 82 mm Hg 04/29/2025 Height 62 in 04/29/2025 Blood pressure systolic 138 mm Hg 04/29/2025 Weight 136 lbs 04/29/2025 BMI 24.87 kg/m2 04/29/2025 Encounters Encounter Location Date Provider Diagnosis Luis Stoner III, MD [address] [place] [address] [place] [phone] 07/29/2024 Luis Stoner Vitamin D deficiency E55.9 ; Hypercholesteremia E78.00 ; GERD (gastroesophageal reflux disease) K21.9 ; Spondylolisthesis of lumbar region M43.16 ; Lumbar radiculopathy M54.16 and Former smoker Z87.891 Luis Stoner III, MD [address] [place] [address] [place] [address] 01/27/2025 Luis Stoner Osteoporosis screeni ng Z13.820 ; Anxiety, generalized F41.1 ; Former smoker Z87.891 ; Vitamin D deficiency E55.9 ; Hypercholesteremia E78.00 ; Lumbar radiculopathy M54.16 and Pars defect M43.00 Luis Stoner III, MD [address] [place] [address] [place] [address] 04/29/2025 Luis Stoner Anxiety, generalized F41.1 ; Irregular heart rate I49.9 ; Hypercholesteremia E78.00 ; GERD (gastroesophageal reflux disease) K21.9 ; Lumbar radiculopathy M54.16 and Former smoker Z87.891 Luis Stoner III, MD [address] [place] [address] [place] [address] 01/31/2025 Luis Stoner Osteoporosis screeni ng Z13.820 ; Vitamin D deficiency E55.9 and Post menopausal syndrome Z78.0 Assessments Encounter Date Diagnosis (ICD Code) Assessment Notes T reatment Notes Treatment Clinical Notes 07/29/2024 Vitamin D deficiency (ICD-10 - E55.9) Vitamin D supplements. 07/29/2024 Hypercholesteremia (ICD-10 - E78.00) Her total cholesterol is within her target range. Her weight is stable and in the normal range. We have discussed her diet and nutrition today. 01/27/2025 Osteoporosis screeni jacques (ICD-10 - Z13.820) She is due for a bone density test which was scheduled. 01/27/2025 Anxiety, generalized (ICD-10 - F41.1) She was referred to mental health. If this worsens she will return to the office and we will discuss sertraline. 04/29/2025 Irregular heart rate (ICD-10 - I49.9) She says she occasionally feels tachycardic when she is anxious. She said she was feeling during the interval today. At that time her pulse was normal. 04/29/2025 Anxiety, generalized (ICD-10 - F41.1) She has had a positive experience of therapy with a therapist. She was encouraged to continue the treatment as long as benefits continue. 01/31/2025 Osteoporosis screeni jacques (ICD-10 - Z13.820) 07/29/2024 GERD (gastroesophage al reflux disease) (ICD-10 - K21.9) She attributes her symptoms of reflux to dysfunction of the sphincter of Oddi. The discomfort is well controlled on current medication. 01/27/2025 Former smoker (ICD-1 0 - Z87.891) We have formulated a plan to prevent relapse in times of stress or illness. 04/29/2025 Hypercholesteremia (ICD-10 - E78.00) Her total cholesterol is within her target range. Her weight is stable and in the normal range. We have discussed her diet and nutrition today. 01/31/2025 Vitamin D deficiency (ICD-10 - E55.9) 07/29/2024 Spondylolisthesis of lumbar region (ICD-10 - M43.16) She is being seen by physiatry to stand having injections in the lumbar spine. 01/27/2025 Vitamin D deficiency (ICD-10 - E55.9) Vitamin D supplements. 04/29/2025 GERD (gastroesophage al reflux disease) (ICD-10 - K21.9) She attributes her symptoms of reflux to dysfunction of the sphincter of Oddi. The discomfort is well controlled on current medication. 01/31/2025 Post menopausal synd reggie (ICD-10 - Z78.0) 07/29/2024 Lumbar radiculopathy (ICD-10 - M54.16) Her back pain is currently stable and improving slowly. The fusion is healing. The pain is much improved 01/27/2025 Hypercholesteremia (ICD-10 - E78.00) Her total cholesterol is within her target range. Her weight is stable and in the normal range. We have discussed her diet and nutrition today. 04/29/2025 Lumbar radiculopathy (ICD-10 - M54.16) Her [...] in times of stress or illness. 01/27/2025 Pars defect (ICD-10 - M43.00) This [...] 04/29/2025 MAGNESIUM 07/15/2022 MAGNESIUM 02/26/2024 LIPID PANEL 01/17/2023 LIPID PANEL 07/15/2022 CBC w DIFF 04/29/2025 CBC w DIFF [...] Total 04/20/2023 Vitamin D 25-OH Total 02/26/2024 ECG 12 lead EKG 04/29/2025 XR lumbar spine 2-3V 08/15/2023 XR sacrum coccyx min 2V 08/15/2023 US pelvic and transvaginal 01/24/2023 Next Appt Details Provider Name:Luis Stoner , 06/17/2025 09:45:00 AM, [address] [place] [address] [address], [place], [address], Provider Name:Luis Stoner , 07/31/2025 10:00:00 AM, [address] [place] [address] [address], [place], [address], Insurance Providers Payer Name Payer Address Payer Phone Subscriber Number Group Number Insured Name Patient Relationship to Insured Coverage Start Date Coverage End Date [facility] [address] [facility] [address] [place] [phone] [id number] Brianne Bridges Self - patient is the insured 5 MEDICARE NGS [address] [place] [phone] [id number] Brianne Bridges Self - patient is the insured Medical (General) History Medical History History ICD Code Vitamin D deficiency E55.9 GERD (gastroesophageal reflux disease) K 21.9 L5-S1 radiculopathy Hyperlipidemia Former smoker 1990 Tubular adenoma 2010 Gastritis 2011 Internal hemorrhoids 2010 DJD right knee L5-S1 pars defect Spondylolisthesis lumbar spine Dysfunction of the sphincter of Oddi Surgical History Surgery Date(Month/Year) No history Lumbar spine fusion 02/02/20232019 analgesic injections elisha mbar spine prior near [place] spine and sports Upper endoscopy and colonoscopy, 1 tubul ar adenoma,[facility], Dr. Luciano 2010 Right knee arthroscopy Cholecystectomy x 2 [place] teeth extractions Hospitalization History Reason Date(Month/Year) No history
--- OUTSIDE RECORDS SUMMARY | 2025-06-02 07:56 | XMS_ITS | Data Portability ---
Author Organization [facility], [address] Address [address] [place] [address] Assessment No assessment recorded. Plan of Treatment Reminders Order Date Submit Date Provider Last Modified By Organization Details Last Modified Time Details Appointments None recorded. Lab urinalysis, dipstick 2022 023 [email or web address] [facility], [address] [place] [address], [id number], 18:33:05 culture, urine 2022 023 [place] [facility], [address] [place] [address], [place], [address], 3 06:07:48 Referral None recorded. Procedures None recorded. Surgeries None recorded. Imaging None recorded. Medication Orders cephalexin 500 mg capsule 2022 023 [id number], [address] [place] [address], [id number], 18:33:11 Patient TargetsNo targets recorded. Patient Instructions Encounter Date Encounter Id Patient Instructions Last Modified By Organization Details Last Modified Time 01/15/2023 [id number] - As we discussfavio d, you denied having any symptoms of [...] culture, routine FINAL REPORT Not Available [facility] ([facility]) [address] [place], [address], 01/18/2023 06:07:47 01/16/20 23 01/18/2023 URINE CULTU RE, ROUTI NE result 1 NO GROWTH Not Available [facility] ([facility]) [address] [place], [address], 01/18/2023 06:07:47 01/16/2001/15/2023 urina lysis , dipst ick Unknown Analyte Light Yellow Not Available [facility] [address] [place], [address], 01/15/2023 18:06:23 01/16/20 23 01/15/2023 urina lysis , dipst ick Unknown Analyte Clear Not Available [facility] [address] [place], [address], 01/15/2023 18:06:23 01/16/20 23 01/15/2023 urina lysis , dipst ick Unknown Analyte Negati ve Not Available [facility] [address], [place], [address], 01/15/2023 18:06:23 01/16/20 23 01/15/2023 urina lysis , dipst ick Unknown Analyte Negati ve Not Available [facility] [address], [place], [address], 01/15/2023 18:06:23 01/16/20 23 01/15/2023 urina lysis , dipst ick Unknown Analyte Negati ve Not Available [facility] [address] [place], [address], 01/15/2023 18:06:23 01/16/20 23 01/15/2023 urina lysis , dipst ick Unknown Analyte 1.010 Not Available madhu [address] [place], [address], 01/15/2023 18:06:23 01/16/20 23 01/15/2023 urina lysis , dipst ick Unknown Analyte Trace- intact Not Available [facility] [address] [place], [address], 01/15/2023 18:06:23 01/16/20 23 01/15/2023 urina lysis , dipst ick Unknown Analyte 6.0 Not Available madhu [address] [place], [address], 01/15/2023 18:06:23 01/16/20 23 01/15/2023 urina lysis , dipst ick Unknown Analyte Negati ve Not Available [facility] [address] [place], [address], 01/15/2023 18:06:23 01/16/20 23 01/15/2023 urina lysis , dipst ick Unknown Analyte 0.2 E.U./d L Not Available [facility] [address] [place], [address], 01/15/2023 18:06:23 01/16/20 23 01/15/2023 urina lysis , dipst ick Unknown Analyte Negati ve Not Available [facility] [address] [place], [address], 01/15/2023 18:06:23 01/16/20 23 01/15/2023 urina lysis , dipst ick Unknown Analyte Negati ve Not Available [facility] [address] [place], [address], 01/15/2023 18:06:23 Result Notes None recorded. Problems Name Problem SNOMED Code Status Onset Date Resolution Date Notes Provider Name and Address Organization Details Recorded Time Chronic back pain 235268122 Active 023 ALON gutierrez, PA - [facility] 3 18:03:03 Disorder of stomach 20941882 Active 023 ALON gutierrez, PA - [facility] 3 18:03:24 Problem Notes None recorded. Procedures Surgical History Date Name Laterality Status Provider Name and Address Organization Details Recorded Time procedure on knee completed ALON Frausto PA - [facility] 01/15/2023 18:05:54 cholecystectomy [...] weight Respiratory rate Body temperature Oxygen saturation Heart rate Systolic And Diastolic Provider Name and Address Organization Details Last Updated DateTime 3 157.48 cm 23.8 kg/m2 00805.0 1 g 16 /min 97 [degF] 98 % 76 /min 158/92 mm[Hg] ALON MENDIETA [facility] 3 18:08:33 Social History Question Answer Notes LastModified by Method CRM Details LastModified Time Tobacco Smoking Status Former Smoker ALON gutierrez, PA [facility] 01/15/2023 18:05:43 Have You Recently Traveled Abroad? No [email or web address] Information not available 01/15/2023 Sex: Unknown Functional Status Question Answer Note LastModified by Method [employer] Details LastModified Time Do you use any illicit or recreational drugs? No [email or web address] Information not available 01/15/2023 Do you or have you ever used any other forms of tobacco or nicotine? No [email or web address] Information not available 01/15/2023 What is your level of alcohol consumption? Occasional [email or web address] Information not available 01/15/2023 Mental Status None recorded. Family History Relationship Description Onset Age of this Age Resolved Age Notes LastModified by Organization Details LastModified Time Mother Chronic obstructive pulmonary disease [email or web address] Not available 2022 18:04:25 Mother Diabetes mellitus [email or web address] Not available 2022 18:04:40 Mother Vascular disorder [email or web address] Not available 2022 18:04:51 Mother Chronic kidney disease [email or web address] Not available 2022 18:04:57 Mother Congestive heart failure [email or web address] Not available 2022 18:05:12 Medical History No medical history recorded. Gynecological HistoryNo gynecological history recorded. Obstetrics History GPAL:G 0 P 0 0 0 0 Past Encounters Encounter ID Performer Location Encounter Start Date Encounter Closed Date Diagnosis/Indication Diagnosis SNOMED-CT Code Diagnosis ICD10 Code Diagnosis IMO Codes Diagnosis Note [id number] [facility] [address] [place] [address] 07/14/2017 15:56:12 07/14/2017 16:34:44 [id number] [facility] [address] [place] [address] 04/13/2018 16:40:09 04/13/2018 17:31:30 [id number] [facility] [address] [place] [address] 04/16/2018 09:01:12 04/16/2018 10:20:43 [id number] [place] [address] [address] [place] [address] 01/15/2023 17:32:34 01/15/2023 18:40:09 Increased frequency of urination 955680901 R35.0 patient to 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 Elevated blood-pressure reading without diagnosis of hypertension 714040234 R03.0 Health Concerns Section Related Observation LastModified by Organization Detai ls LastModified Time None Recorded Concern Status LastModified by Organization Details LastModified Time None Recorded Advance Directives Directive None Recorded Payers Insurance Date Sequence Insurance Name Policy Number Policy Arnold Covered Member ID Arnold Member ID Guarantor Name 01/15/[address] [place] [address] [id number] Brianne Bridges [id number] Brianne Bridges Notes Date Note Type Note Provider Name and Address Organization Details Recorded Time 3 text/html Urinary Complaint FemaleReported by PatientUrinary problemsFor uti symptoms, patient reportsurinary frequencyandabdominal painbut reportsno blood in the urine,no pain during urination,no vaginal discharge,no urgency,no pain in the flank,no fever/chills,no incontinence,no recurrent uti, andno known exposure to std. For source of patient information, patient reportsinformation obtained from patientandpatient arrived at urgent care ambulatory. For severity, patient reportsmild. For duration, patient reports1 days. For modifying factors, patient reportsnothing gives relief.frequency and urgency x 1 day. denies any fever or fever with chills, denies any History of renal stone or bladder issues. frequency and urgency x 1 day. denies any fever or fever with chills, denies any History of renal stone or bladder issues. Burke Rey NP [address] [place], [address], PA - [facility] 01/15/2023 18:34:39 OBGyn Episode No OBEpisode recorded.
--- OUTSIDE RECORDS SUMMARY | 2025-06-02 07:56 | XMS_ITS | Clinical Summary ---
Author Organization [address] [facility] Address [address] [place] [address] Phone Care Team Providers Care Variety Saw Operator Name Role Phone Luis Stoner MD Primary Care Provider [phone] Allergies Active Allergy Reactions Criticality Noted Date [...] (two) times a day with meals. Active Active Problems Problem Noted Date Diagnosed Date Mid back pain, chronic 10/15/2024 Assessment & Plan (10/15/2024 2:30 PM EDT): Ms. Cordero'denys describes chronic mid back pain without radiation [...] I reviewed the lumbar spine CT at [facility] today which shows bridging bone through both [...] lumbar 07/02/2018 Overview (10/14/2024): 11/2017 MRI bilateral Immunizations Immunization Administration Dates Next Due Influenza [...] TONSILLECTOMY ADENOIDECTOMY, BILATERAL MYRINGOTOMY AND TUBES PROCEDURE: [place] TONSILLECTOMY & ADENOIDECTOMY <AGE 12 CHOLECYSTECTOMY PROCEDURE: HISTORICAL CHOLECYSTECTOMY WISDOM TOOTH EXTRACTION PROCEDURE: HISTORICAL WISDOM TEETH EXTRACTION SECTION PROCEDURE: HISTORICAL DELIVERY; COMMENT: x2 KNEE ARTHROSCOPY Right PROCEDURE: [place] ARTHROSCOPY AID TX SPINE&/FX KNEE W/O FIXJ COLONOSCOPY 11/07/2016 PROCEDURE: HISTORICAL COLONOSCOPY; COMMENT: sigmoid diverticulosis, internal hemorrhoids; repeat in 5 yrs; no report COLONOSCOPY 02/21/2011 PROCEDURE: HISTORICAL COLONOSCOPY; COMMENT: tubular adenoma-removed; no report (only path report) UPPER GASTROINTESTINAL ENDOSCOPY 02/22/2010 PROCEDURE: [place] UPPER GI ENDOSCOPY PERFORMED; COMMENT: mild gastritis, [...] on file Sexual Orientation Not on file Last Filed Vital Signs Vital Sign Reading [...] PCV) 2010 Cholesterol Screening (Lipid Panel) 05/04/2022 Hepatitis C Screening 05/04/2022 Osteoporosis Screening (Bone Density Screening) 05/04/2022 Social Influencers of Health Screening 05/04/2022 Depression Screening 06/05/2024 COVID-19 Vaccine ( season) 2025 02/19/2024, 04/13/2023, 03/05/2022, Additional history exists Influenza Vaccine (#1) 2025 9, 02/11/2018, 01/22/2017, Additional history exists Falls Risk Assessment 2025 DTaP,Tdap,and Td Vaccines (4 - Td or [...] patient's age to complete this topic Insurance [facility] [address] [place] [address] Care Teams Variety Saw Operator Relationship Specialty Start Date End Date Luis Stoner MD [address] [facility] [address] [place] [address] PCP - General 10/18/22
== END ==
LOC: HO.CARD 07:51
PROVIDERS: PCP Internal Medicine Medical Oncology; Visit Provider Internal Medicine Medical Oncology
DX: I49.9 Cardiac arrhythmia, unspecified (principal); R07.9 Chest pain, unspecified
CPT/HCPCS: 93017; 93242

== ENCOUNTER → 2025-06-02 07:56 | Outpatient (BNV) | payer MEDICARE, SELFPAY | PROVIDERS: PCP Internal Medicine Medical Oncology | DX: I49.3 Ventricular premature depolarization (principal); R06.02 Shortness of breath | CPT/HCPCS: 93016; 93018 ==